=== PATIENT | female | born 1935 | race Caucasian/White ===

== ENCOUNTER 2018-06-01 15:18 | Outpatient (CLI) | payer MEDICARE, BC | END 2018-06-01 15:19 | disposition critical access hospital (66) | LOC: EMS 15:18 | PROVIDERS: ATTEND Surgery | DX: M25.551 Pain in right hip (principal) | CPT/HCPCS: A0425; A0429 ==

== ENCOUNTER 2018-06-01 15:49 | Inpatient (IN) | payer MEDICARE, BC ==
--- NOTE | 2018-06-01 16:03 | ED Physician Documentation ---
PD HPI LOWER EXT INJURY - Stated complaint Stated Complaint: GLF - Chief complaint Chief Complaint: Ext Problem - History obtained from History obtained from: Patient, EMS - History of Present Illness PD HPI LOW EXT INJURY LOCATION: Right, Hip Type of injury: Fall Where injury occurred: Home Timing - onset: Today Timing - duration: Minutes Timing - details: Abrupt onset, Still present Improved by: Rest, Immobilization Worsened by: Moving, Palpating Associated symptoms: No: Weakness, Numbness, Tingling Contributing factors: No: Anticoagulated Similar symptoms before: Has not had sx before Recently seen: Not recently seen - Additional information Additional information: 82-year-old female is visiting here from [place] and has been here a bit more than a week. She was at her daughter's home she walked down some steps and tripped on some gravel landed on her right side. She has pain in her right hip. She was not otherwise injured in the fall. She does indicate that she has some Parkinson's disease. Review of Systems Constitutional: denies: Fever Eyes: denies: Decreased vision Ears: denies: Ear pain Nose: denies: Congestion Throat: denies: Sore throat Cardiac: denies: Chest pain / pressure, Palpitations Respiratory: denies: Dyspnea, Cough GI: denies: Abdominal Pain, Nausea, Vomiting : denies: Dysuria, Frequency Skin: denies: Rash Musculoskeletal: reports: Extremity pain, Joint pain. denies: Neck pain, Back pain Neurologic: denies: Generalized weakness, Focal weakness, Numbness PD PAST MEDICAL HISTORY - Past Medical History Past Medical History: Yes Cardiovascular: Hypertension Neuro: Parkinson's Endocrine/Autoimmune: HyPOthyroidism GI: GERD - Present Medications Home Medications: Ambulatory Orders Medication Instructions Recorded Confirmed Dexlansoprazole [Dexilant] 60 mg PO DAILY 06/01/18 06/01/18 Furosemide [Lasix] 40 mg PO DAILY 06/01/18 06/01/18 Levothyroxine [Synthroid] 25 mcg PO QDAC 06/01/18 06/01/18 Lorazepam [Ativan] 1 mg PO BID 06/01/18 06/01/18 amLODIPine [Norvasc] 5 mg PO BID 06/01/18 06/01/18 - Allergies Allergies/Adverse Reactions: Allergies Allergy/AdvReac Type Severity Reaction Status Date / Time hydromorphone [From Dilaudid] Allergy Nausea Verified 06/01/18 16:30 - Living Situation Living Situation: reports: Other (visiting daughter ) - Family History Family history: reports: Non contributory PD ED PE NORMAL - Vitals Vital signs reviewed: Yes (normal ) - General General: Alert and oriented X 3, No acute distress, Well developed/nourished - HEENT HEENT: Atraumatic, PERRL, EOMI - Neck Neck: Supple, no meningeal sign, No bony TTP - Cardiac Cardiac: RRR, No murmur - Respiratory Respiratory: No respiratory distress, Clear bilaterally - Abdomen Abdomen: Soft, Non tender - Back Back: No CVA TTP, No spinal TTP - Derm Derm: Normal color, Warm and dry, No rash - Extremities Extremities: Other (There is shortening and external rotation of the right hip. There is tenderness to the right trochanter and worsening pain in this area with movement of the right leg. ) - Neuro Neuro: Alert and oriented X 3, delinquency prevention social worker 2-12 intact, No motor deficit, No sensory deficit, Normal speech Eye Opening: Spontaneous Motor: Obeys Commands Verbal: Oriented GCS Score: 15 - Psych Psych: Normal mood, Normal affect Results - Vitals Vitals: Vital Signs - 24 hr 06/01/18 15:51 Temperature 37.4 C Heart Rate 68 Respiratory 16 Rate Blood Pressure 116/56 L O2 Saturation 95 - Labs Labs: Laboratory Tests 06/01/18 06/01/18 06/01/18 16:16 16:16 16:16 WBC 5.8 RBC 3.83 L Hgb 12.9 Hct 37.7 MCV 98.5 MCH 33.6 H MCHC 34.1 RDW 13.6 Plt Count 200 MPV 7.6 L Neut # (Auto) 3.9 Lymph # (Auto) 1.2 L [place] # (Auto) 0.5 Eos # (Auto) 0.2 Baso # (Auto) 0.0 Absolute Nucleated RBC 0.00 Nucleated RBC % 0.1 Sodium 136 Potassium 4.4 Chloride 104 Carbon Dioxide 25 Anion Gap 7.0 BUN 16 Creatinine 1.2 H Estimated GFR (MDRD) 43 L Glucose 151 H Calcium 8.8 Total Bilirubin 0.4 AST 15 ALT < 10 L Alkaline Phosphatase 61 Troponin I < 0.04 Total Protein 6.9 Albumin 3.5 Globulin 3.4 Albumin/Globulin Ratio 1.0 Lipase 43 - Rads (name of study) right hip Radiology: Prelim report reviewed (Impression: Angulated right proximal femur fracture.), EMP read indepedently, See rad report PD MEDICAL DECISION MAKING - ED course Complexity details: reviewed results, re-evaluated patient, considered differential, d/w patient, d/w family, d/w content management consultant ([place]: recommends NPO after midnight and admission to the hospitalist. ) ED course: 82-year-old female with Parkinson's who is visiting her daughter has had a fall and fractured her right hip. She is given IV morphine for pain control which is not entirely effective. Hui Vides is consult in the case and graciously agrees to care for the patient in the hospital. - Sepsis Event Vital Signs: Vital Signs - 24 hr 06/01/18 15:51 Temperature 37.4 C Heart Rate 68 Respiratory 16 Rate Blood Pressure 116/56 L O2 Saturation 95 Departure - Departure Disposition: 66 [facility] DC/Xfer Clinical Impression: Closed right hip fracture Qualifiers: Encounter type: initial encounter Qualified Code(s): S72.001A - Fracture of unspecified part of neck of right femur, initial encounter for closed fracture Condition: Stable
[2018-06-01] MEDS ORDERED: ONDANSETRON 4 MG/2 ML VIAL IVP STA ×2 (16:25→17:47)
[2018-06-01] MEDS ORDERED: HYDROmorphone 1 MG/ML CARPUJECT IVP STA (16:25)
[2018-06-01 16:26] LABS: BASOPHILS % (AUTO) 0.8 %; EOSINOPHILS # (AUTO) 0.2 10^3/uL (0.0-0.7); EOSINOPHILS % (AUTO) 2.8 %; HGB - HEMOGLOBIN 12.9 g/dL (12.0-16.0); LYMPHOCYTES # (AUTO) 1.2 10^3/uL (1.5-3.5); MEAN CORPUSCULAR HEMOGLOBIN 33.6 pg (27.0-31.0); MEAN CORPUSCULAR HGB CONC 34.1 g/dL (32.0-36.0); MEAN CORPUSCULAR VOLUME 98.5 fL (81.0-99.0); MEAN PLATELET VOLUME 7.6 fL (7.9-10.8); MONOCYTES # (AUTO) 0.5 10^3/uL (0.0-1.0); MONOCYTES % (AUTO) 9.3 %; NEUTROPHILS # (AUTO) 3.9 10^3/uL (1.5-6.6); NEUTROPHILS % (AUTO) 67.1 %; PLT - PLATELET COUNT 200 10^3/uL (130-450); RED BLOOD COUNT 3.83 10^6/uL (4.20-5.40); RED CELL DISTRIBUTION WIDTH 13.6 % (12.0-15.0); WHITE BLOOD COUNT 5.8 x10^3/uL (4.8-10.8)
[2018-06-01] MEDS ORDERED: MORPHINE 10 MG/ML VIAL IVP STA ×2 (16:30→17:22)
[2018-06-01 16:39] LABS: ALBUMIN 3.5 g/dL (3.2-5.5); ALKALINE PHOSPHATASE 61 IU/L (42-121); ALT ALANINE AMINOTRANSFERASE < 10 IU/L (10-60); AST ASPARTATE AMINOTRANSFERASE 15 IU/L (10-42); BILIRUBIN,TOTAL 0.4 mg/dL (0.2-1.0); BUN - BLOOD UREA NITROGEN 16 mg/dL (6-20); CALCIUM 8.8 mg/dL (8.5-10.3); CARBON DIOXIDE - CO2 25 mmol/L (21-32); CHLORIDE 104 mmol/L (101-111); CREATININE 1.2 mg/dL (0.4-1.0); GFR - MDRD 43 (>89); GLUCOSE 151 mg/dL (70-100); LIPASE 43 U/L (22-51); SODIUM 136 mmol/L (135-145); TOTAL PROTEIN 6.9 g/dL (6.7-8.2)
--- NOTE | 2018-06-01 17:29 | XRAY Report ---
Reason: fall trochanter pain, shortening and rotation Procedure Date: 06/01/2018 Accession Number: [id number] / [id number] Procedure: XR - Hip w/Pelvis 2-3V RT CPT Code: FULL RESULT: EXAM: RIGHT HIP AND PELVIS RADIOGRAPHY EXAM DATE: 06/01/2018 05:20 PM. HISTORY: Fall trochanter pain, shortening and rotation. COMPARISONS: None. TECHNIQUE: 1 view of the pelvis and 1 view of the hip. FINDINGS: There is a fracture of the basicervical right femoral neck with moderate varus angulation and foreshortening. Osteopenia. No additional fracture identified. No dislocation. Mild bilateral hip joint space narrowing. IMPRESSION: Angulated right proximal femur fracture. RADIA
--- NOTE | 2018-06-01 17:45 | HISTORY & PHYSICAL EXAMINATION ---
Chief Complaint - Chief Complaint Chief Complaint: fall, right femur fx History of Present Illness - Admitted From Admitted From:: ED - History Obtained From Records Reviewed: yes History obtained from: chart review, patient Exam Limitations: none - History of Present Illness HPI Comment/Other: Melodie Cooney is an 82-year old female with a past medical history of hypertension, hypothyroidism, Parkinson's disease, GERD, atrial fibrillation, thymus cancer-status post thymus removal, and baseline tremors. Her daughter, Melodie is at the bedside and helped with this H & P as the patient has a hearing impairment and was unsettled with being in pain/uncontrolled nausea. The patient has been living with her daughter for the past 2 weeks and is in the process of selling her home in [place] due to increased falls at home. Since arriving at her daughter's home, she will not allow her daughter to help her manage her meds. The patient is reported as being resistant to assistance both physically and mentally. Her daughter has been helping her around their mobile home, and was thought to be managing the 2-step landing right out side the front door. The patient ambulated un-assisted out the front door, apparently fell off the 2 front steps, and landed in the gravel on her right side. There were no objects in the way and the patient states that her Parkinson's disease causes her profound bilateral leg weakness. The patient's daughter predicts that her mother laid there about 1 full minute before being discovered by her daughter. Melodie, the patient's daughter attempted to assist her mother to her feet, but the patient complained of very sharp pain in the right hip and groin and approved of her only calling "the police" so they could help. EMS arrived, and brought her to the ED. Imaging confirmed a fracture of the neck of the right femur. Labs show a reduced creatinine of 1.2, a GFR of 43, an elevated glucose of 151, a negative troponin, with no other lab abnormalities. The patient was afebrile, slightly hypotensive with a blood pressure of 116/56, and a heart rate in the 60-70's. Dr. Brunson was consulted who will plan for surgery in the AM. She will be medically managed by Hospitalist. History - Past Medical History Cardiovascular: reports: Hypertension, Atrial fibrillation, Murmur, Arrhythmia Respiratory: reports: None Neuro: reports: Parkinson's, Tremors Endocrine/Autoimmune: reports: HyPOthyroidism GI: reports: GERD : reports: Incontinence, Chronic bladder infection, Nocturia, Frequency HEENT: reports: Chronic vision loss, Chronic sinusitis, Chronic hearing loss Musculoskeletal: reports: Fatigue Derm: reports: None MRSA Hx?: No Other Past Medical History: thymus CA - Past Surgical History General: reports: Cholecystectomy, Appendectomy /BANK OFFICER: reports: Hysterectomy, Oophrectomy HEENT: reports: Tonsil/Adenoidectomy - Family & Social History Family History: Mother: , Diabetes, Type 2, Father: , Sister: , Brother: Family History Comment/Other: The patient's father had diabetes, mother had a fractured hip and from old age. The patient had 15 siblings of which she knows of no chronic illnesses. 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 She had a back injury in her 40's and went on disability since that time. She had 3 children and one adopted child. She denies the use of current tobacco use, franciscaugh used cigarettes from age [age]. She denies alcohol or illicit drug use. She wishes to be a FULL code. - Substance History Use: Uses substance without health or social issues: NONE Abuse: Recurrent use of substance despite neg consequences: NONE Dependence: Experiences withdrawal or developed tolerances: NONE - POLST Patient has POLST: No POLST Status: Full Code Meds/Allgy - Home Medications Home Medications: Ambulatory Orders Medication Instructions Recorded Confirmed Carbidopa/Levodopa 25/100 [Sinemet 2 each PO 0800,1200,1700 06/01/18 06/02/18 25 mg/100 mg] Dexlansoprazole [Dexilant] 60 mg PO QDAC 06/01/18 06/02/18 Furosemide [Lasix] 40 mg PO DAILY 06/01/18 06/01/18 Levothyroxine [Synthroid] 25 mcg PO QDAC 06/01/18 06/01/18 Lorazepam [Ativan] 1 mg PO BID PRN 06/01/18 06/02/18 amLODIPine [Norvasc] 5 mg PO BID 06/01/18 06/01/18 Metoprolol Tartrate 50 mg PO BID 06/02/18 06/02/18 Potassium Chloride 40 meq PO DAILY 06/02/18 06/02/18 Trazodone HCl 50 mg PO QPM PRN 06/02/18 06/02/18 - Allergies Allergies/Adverse Reactions: Allergies Allergy/AdvReac Type Severity Reaction Status Date / Time hydromorphone [From Dilaudid] Allergy Hallucinati Verified 06/01/18 19:22 ons Review of Systems - Constitutional Constitutional: reports: Fatigue, Weakness, Poor appetite, Weight loss - Eyes Eyes: reports: Vision loss, Corrective lenses - Ears, Nose & Throat Ears, Nose & Throat: reports: Hearing loss, Postnasal drainage - Cardiovascular Cariovascular: reports: Decr. exercise tolerance - Respiratory Respiratory: reports: SOB with exertion - Gastrointestinal Gastrointestinal: reports: Constipation, Diarrhea, Reflux/heartburn, Poor appetite - Genitourinary Genitourinary: reports: Dysuria, Frequency, Urgency, Incontinence - Musculoskeletal Musculoskeletal: reports: Back pain, Muscle weakness - Integumentary Integumentary: reports: Dryness - Neurological Neurological: reports: General weakness, Dizziness, Pre-existing deficit, Abnormal gait - Psychiatric Psychiatric: reports: Depression - Hematologic/Lymphatic Hematologic/Lymphatic: reports: Recurrent infections - All Other Systems All Other Systems: reports: Reviewed and negative Exam - Vital Signs Reviewed Vital Signs: Yes Vital Signs: Vital Signs x48h Temp Pulse Resp BP Pulse Ox 06/01/18 15:51 37.4 C 68 16 116/56 L 95 - Physical Exam General Appearance: positive: Moderate distress, Anxious Eyes Bilateral: positive: Normal inspection ENT: positive: ENT inspection nml, Pharyngeal erythema, Dry mucous membranes Neck: positive: Nml inspection, No JVD Respiratory: positive: Chest non-tender, Other (diminished.) Cardiovascular: positive: Regular rate & rhythm, No gallop, Systolic murmur Peripheral Pulses: positive: 2+ Abdomen: positive: Non-tender, Nml bowel sounds Back: positive: Nml inspection Skin: positive: No rash, Warm, Dry, Other (pale) Extremities: positive: Pedal edema, Joint swelling (right hip swelling, extremely tender.) Neurologic/Psychiatric: positive: Disoriented to time, Weakness, Sensory loss, Slurred/abnml speech, Depressed mood/affect Reflexes: Bicep (R): 2+, Bicep (L): 2+ Conclusion/Plan - Problem List (1) Preop cardiovascular exam Conclusion/Plan: The patient was examined and was orientated x4 while still in the ED, could state her medical history, her current medical state, and the past 24 hours recent events. She denies ever having a heart attack, stroke, or being diabetic. She denies kidney disease, liver disease or lung disease. She admits to tobacco use from age [age]'s. This surgery is not considered a high risk surgery involving the intrathoracic, vascular, or GI in nature. Her pre- operative evaluation concludes her to be at a 0.04% risk for a cardiac event using the; Revised Cardiac Risk Index for Pre-operative Risk. Plan: continue to monitor and anticipate surgical intervention in the AM. (2) Closed right hip fracture Conclusion/Plan: The patient was ambulating and lost her balance while under the care of her daughter. Melodie, the patient's daughter, believes that her mother was conscious throughout the whole process. Once in the ED imaging confirmed a fractured right femur. Dr. Chowdhury was contacted and will plan for surgery in the AM. The hip appears minimally swollen with no open areas of injury. The patient and her daughter do not believe that she may have hit her head during the fall and there are no other obvious areas of injury. Plan: Treat pain, and monitor. Qualifiers: Encounter type: initial encounter Qualified Code(s): S72.001A - Fracture of unspecified part of neck of right femur, initial encounter for closed fracture (3) Fall Conclusion/Plan: The primary reason for the patient re-locating to [facility] from [place] as she was falling more frequently which was likely due to the progression of her Parkinson's disease. Plan: Bed rest this evening, await surgery to repair her right hip in the AM, then PT/OT evaluation and post-op care. Qualifiers: Encounter type: subsequent encounter Qualified Code(s): W19.XXXD - Unspecified fall, subsequent encounter (4) Parkinson's disease Conclusion/Plan: The patient has had this for the past several years and is prescribed Carbidopa/ levodopa at home, and this continues here. She consequently has become progressively weak, and this has been getting worse as per her daughter for at least the past year. She has baseline tremors. Plan: Continue to monitor mental status. (5) GERD (gastroesophageal reflux disease) Conclusion/Plan: The patient has a history of this and is prescribed Dexilant at home. I have started her on IV Protonix while in the hospital. Plan: continue to monitor and treat nausea. (6) Hypothyroidism Conclusion/Plan: The patient has a history of this and is prescribed Synthroid at home, which continues here. I will check a TSH in the AM to ensure the dose is correct. Plan: Continue medication. Qualifiers: Hypothyroidism type: acquired Qualified Code(s): E03.9 - Hypothyroidism, unspecified (7) Hypertension Conclusion/Plan: The patient is prescribed lasix, norvasc and metoprolol at home and these are now on hold as she is pre-op. Blood pressures are mildly low at 116/56. Plan: Continue to hold home meds, IVFs, and monitor blood pressures. Qualifiers: Hypertension type: essential hypertension Qualified Code(s): I10 - Essential (primary) hypertension (8) Nausea & vomiting Conclusion/Plan: The patient is found to be very nauseous and this continued after arriving on the nursing floor. She has a history of GERD. She can have her usual lorazepam , zofran and we will continue to treat her pain cause by her acute right femur fracture. Plan: Continue to manage symptoms. - Lab Results Lab results reviewed: Yes Fish Bones: 06/02/18 05:10 06/02/18 05:10 - Diagnostic Imaging Results Diagnostic Imaging Results: positive: Prelim report reviewed, Final report reviewed Diagnostic Imaging Results Comments: EXAM: RIGHT HIP AND PELVIS RADIOGRAPHY EXAM DATE: 06/01/2018 05:20 PM. IMPRESSION: Angulated right proximal femur fracture. - EKG Results EKG Interpreted Independently: Yes EKG Comparison: No prior EKG Core Measures - Anticipated LOS I expect patient to be DC'd or transferred within 96 hours.: Yes - DVT/VTE - Prophylaxis VTE/DVT Device ordered at admit?: Yes VTE/DVT Prophylaxis med ordered at admit?: No Not Ordered - Medical Reason: Contraindicated - Stroke - Rehab Assessment Rehab services assessment to be ordered?: Yes - AMI - Statin at Admit Aspirin Prescribed on Admit: No Not Ordered - Medical Reason: Contraindicated
[2018-06-01] MEDS ORDERED: LORazepam 2 MG/ML VIAL IVP PRN (19:02)
[2018-06-01] MEDS ORDERED: PROCHLORPERAZINE 25 MG SUPP PR PRN (19:02)
[2018-06-01] MEDS ORDERED: PROCHLORPERAZINE 10 MG/2 ML VIAL IVP PRN (19:03)
[2018-06-01 20:07] LABS: BILIRUBIN,URINE NEGATIVE (NEGATIVE); GLUCOSE, URINE (UA) NEGATIVE (NEGATIVE); KETONES,URINE (UA) NEGATIVE (NEGATIVE); LEUKOCYTE ESTERASE, URINE NEGATIVE (NEGATIVE); NITRITE,URINE NEGATIVE (NEGATIVE); OCCULT BLOOD,URINE NEGATIVE (NEGATIVE); PH,URINE 7.5 PH (5.0-7.5); PROTEIN,URINE NEGATIVE (NEGATIVE); UROBILINOGEN,URINE 0.2 (NORMAL) E.U./dL (NORMAL)
[2018-06-01 20:11] LABS: CLARITY,URINE N (CLEAR)
[2018-06-01] MEDS: SODIUM CHLORIDE 0.9% 1,000 ML IV SCH (20:15)
[2018-06-01] MEDS: ACETAMINOPHEN 325 MG TABLET PO SCH (20:15)
[2018-06-01] MEDS: PANTOPRAZOLE 40 MG TABLET PO SCH (20:16)
[2018-06-01] MEDS: oxyCODONE 5 MG TABLET PO PRN (20:16)
[2018-06-01] MEDS ORDERED: CARBIDOPA/LEVODOPA 25 MG/100 MG TABLET PO SCH (21:00)
[2018-06-01] MEDS: SODIUM CHLORIDE FLUSH 0.9% 10 ML SYRINGE IVP PRN (21:21)
[2018-06-02] MEDS: MORPHINE 2 MG/ML CARPUJECT IVP PRN ×7 (00:23→20:19)
[2018-06-02] MEDS: ACETAMINOPHEN 325 MG TABLET PO SCH ×3 (00:34→11:14)
[2018-06-02] MEDS: SODIUM CHLORIDE FLUSH 0.9% 10 ML SYRINGE IVP SCH ×3 (05:20→16:20)
[2018-06-02 05:40] LABS: BASOPHILS % (AUTO) 0.5 %; EOSINOPHILS # (AUTO) 0.2 10^3/uL (0.0-0.7); EOSINOPHILS % (AUTO) 2.1 %; HGB - HEMOGLOBIN 12.1 g/dL (12.0-16.0); LYMPHOCYTES # (AUTO) 1.4 10^3/uL (1.5-3.5); MEAN CORPUSCULAR HEMOGLOBIN 33.8 pg (27.0-31.0); MEAN CORPUSCULAR HGB CONC 34.2 g/dL (32.0-36.0); MEAN CORPUSCULAR VOLUME 98.9 fL (81.0-99.0); MEAN PLATELET VOLUME 7.8 fL (7.9-10.8); MONOCYTES # (AUTO) 0.8 10^3/uL (0.0-1.0); MONOCYTES % (AUTO) 9.9 %; NEUTROPHILS # (AUTO) 6.1 10^3/uL (1.5-6.6); NEUTROPHILS % (AUTO) 71.5 %; PLT - PLATELET COUNT 174 10^3/uL (130-450); RED BLOOD COUNT 3.57 10^6/uL (4.20-5.40); RED CELL DISTRIBUTION WIDTH 13.7 % (12.0-15.0); WHITE BLOOD COUNT 8.6 x10^3/uL (4.8-10.8)
[2018-06-02 06:21] LABS: HB2 TOTAL 12.3 g/dL; HEMOGLOBIN A1C 0.46 g/dL; HEMOGLOBIN A1C % 5.6 % (4.6-6.2)
[2018-06-02 06:22] LABS: ALBUMIN 3.3 g/dL (3.2-5.5); BILIRUBIN,TOTAL 1.5 mg/dL (0.2-1.0); CALCIUM 8.6 mg/dL (8.5-10.3); CREATININE 0.9 mg/dL (0.4-1.0); MAGNESIUM 2.1 mg/dL (1.7-2.8); PHOSPHORUS 3.5 mg/dL (2.5-4.6); TOTAL PROTEIN 6.7 g/dL (6.7-8.2)
[2018-06-02] MEDS: PANTOPRAZOLE 40 MG TABLET PO SCH ×2 (06:29→16:19)
[2018-06-02] MEDS ORDERED: LEVOTHYROXINE 25 MCG TABLET PO SCH (07:00)
[2018-06-02] MEDS: POLYETHYLENE GLYCOL 3350 17 GM PACKET PO SCH (09:31)
[2018-06-02] MEDS: SODIUM CHLORIDE 0.9% 1,000 ML IV SCH ×2 (09:31→20:20)
[2018-06-02] MEDS: SODIUM CHLORIDE FLUSH 0.9% 10 ML SYRINGE IVP PRN ×5 (11:02→20:19)
[2018-06-02] MEDS: CARBIDOPA/LEVODOPA 25 MG/100 MG TABLET PO SCH ×4 (11:02→21:04)
[2018-06-02] MEDS: LEVOTHYROXINE 100 MCG VIAL IVP SCH (11:02)
[2018-06-02 11:24] LABS: PT - PROTHROMBIN TIME 11.6 secs (9.9-12.6)
[2018-06-02 11:27] LABS: GAMMA GLUTAMYL TRANSPEPTIDASE 120 IU/L (8-38); LIPASE 38 U/L (22-51)
--- NOTE | 2018-06-02 12:37 | PROVIDER PROGRESS NOTE ---
Subjective - Prog Note Date Prog Note Date: 06/02/18 Prog Note Time: 12:36 - Subjective Pt reports feeling: Worse Subjective: Melodie complains that she feels like her leg is twisted and this improved after nursing repositioned. She denies chest pain, increased shortness of breath, vomiting, or dizziness. She admits to ongoing nausea and LUQ pain. Current Medications - Current Medications Current Medications: Active Medications Carbidopa/Levodopa (Sinemet 25 Mg/100 Mg) 1 tab PO QID [facility] Last Admin: 06/03/18 05:52 Dose: 1 tab Docusate Sodium (Colace 250mg Capsule) 250 - 500 mg PO ONCE [facility] Stop: 06/03/18 10:00 Sodium Chloride (Normal Saline 0.9%) 1,000 mls @ 83.333 mls/hr IV .Q12H [facility] Last Admin: 06/02/18 20:20 Dose: 83.3 mls/hr Acetaminophen (Ofirmev) 100 mls @ 400 mls/hr IV Q6HR PRN PRN Reason: PAIN Last Infusion: 06/02/18 21:32 Dose: Infused Levothyroxine Sodium (Synthroid Inj) 50 mcg IVP DAILY [facility] Last Admin: 06/02/18 11:02 Dose: 50 mcg Morphine Sulfate (Morphine (Carpuject)) 2 mg IVP Q2HR PRN PRN Reason: PAIN Last Admin: 06/03/18 05:52 Dose: 2 mg Oxycodone HCl (Roxicodone) 5 mg PO Q4HR PRN PRN Reason: PAIN Last Admin: 06/01/18 20:16 Dose: 5 mg Pantoprazole Sodium (Protonix) 40 mg PO BIDAC [facility] Last Admin: 06/03/18 06:22 Dose: Not Given Polyethylene Glycol (Miralax) 17 gm PO DAILY [facility] Last Admin: 06/02/18 09:31 Dose: Not Given Prochlorperazine Edisylate (Compazine Inj) 10 mg IVP Q4HR PRN PRN Reason: Nausea / Vomiting Last Admin: 06/01/18 20:16 Dose: 10 mg Prochlorperazine Maleate (Compazine Supp) 25 mg [place] BID PRN PRN Reason: Nausea / Vomiting Quetiapine Fumarate (Seroquel) 25 mg PO Q6H PRN PRN Reason: Agitation Senna (Senokot) 8.6 - 17.2 mg PO ONCE [facility] Stop: 06/03/18 10:00 Sodium Chloride (Normal Saline Flush 0.9%) 10 ml IVP PRN PRN PRN Reason: NEEDED PER PROVIDER ORDERS Last Admin: 06/03/18 05:53 Dose: 10 ml Sodium Chloride (Normal Saline Flush 0.9%) 10 ml IVP 0100,0900,1700 [facility] Last Admin: 06/03/18 01:11 Dose: Not Given Carbidopa/Levodopa 25/100 [Sinemet 25 mg/100 mg] 2 each PO 0800,1200,1700 Dexlansoprazole [Dexilant] 60 mg PO QDAC 06/01/18 Furosemide [Lasix] 40 mg PO DAILY 06/01/18 Levothyroxine [Synthroid] 25 mcg PO QDAC 06/01/18 Lorazepam [Ativan] 1 mg PO BID PRN 06/01/18 amLODIPine [Norvasc] 5 mg PO BID 06/01/18 Metoprolol Tartrate 50 mg PO BID 06/02/18 Potassium Chloride 40 meq PO DAILY 06/02/18 Trazodone HCl 50 mg PO QPM PRN 06/02/18 Objective - Vital Signs/Intake & Output Reviewed Vital Signs: Yes Vital Signs: Vital Signs x48h Temp Pulse Resp BP Pulse Ox 06/02/18 11:22 37.4 C 06/02/18 09:24 37.5 C 70 16 116/50 L 93 Intake & Output: Intake & Output 05/30/18 05/31/18 06/01/18 06/02/18 23:59 23:59 23:59 23:59 Intake Total 1000 Output Total 700 750 Balance -700 250 - Objective General Appearance: positive: Alert, Mild distress Eyes Bilateral: positive: Normal inspection Eyes: OU Conjunctivae pale ENT: positive: ENT inspection nml, Pharynx nml, Dry mucous membranes Neck: positive: Nml inspection, Thyroid nml, No JVD Respiratory: positive: Chest non-tender, No respiratory distress Cardiovascular: positive: Regular rate & rhythm, No gallop, Systolic murmur Peripheral Pulses: 1+ Radial (R), 1+ Radial (L) Abdomen: positive: Nml bowel sounds, Tenderness, Guarding Back: positive: Nml inspection Skin: positive: No rash, Warm, Dry Extremities: positive: Pedal edema, Joint swelling (right hip swelling) Neurologic/Psychiatric: positive: Disoriented to time, Weakness, Sensory loss, Depressed mood/affect Reflexes: Bicep (R): 3+, Bicep (L): 3+ - Lab Results Fish Bones: 06/03/18 05:16 06/03/18 05:16 Other Labs: Lab Results x24hrs 06/02/18 06/02/18 06/02/18 Range/Units 11:10 11:10 11:10 WBC (4.8-10.8) x10^3/uL RBC (4.20-5.40) 10^6/uL Hgb (12.0-16.0) g/dL Hct (37.0-47.0) % MCV (81.0-99.0) fL MCH (27.0-31.0) pg MCHC (32.0-36.0) g/dL RDW (12.0-15.0) % Plt Count (130-450) 10^3/uL MPV (7.9-10.8) fL Neut # (Auto) (1.5-6.6) 10^3/uL Lymph # (Auto) (1.5-3.5) 10^3/uL [place] # (Auto) (0.0-1.0) 10^3/uL Eos # (Auto) (0.0-0.7) 10^3/uL Baso # (Auto) (0.0-0.1) 10^3/uL Absolute Nucleated RBC x10^3/uL Nucleated RBC % /100WBC PT (9.9-12.6) secs INR (0.8-1.2) APTT (24.9-33.3) secs Sodium (135-145) mmol/L Potassium (3.5-5.0) mmol/L Chloride (101-111) mmol/L Carbon Dioxide (21-32) mmol/L Anion Gap (6-13) BUN (6-20) mg/dL Creatinine (0.4-1.0) mg/dL Estimated GFR (MDRD) (>89) Glucose (70-100) mg/dL Glycated Hemoglobin (4.6-6.2) % Estim Average Glucose (70-100) Calcium (8.5-10.3) mg/dL Phosphorus (2.5-4.6) mg/dL Magnesium (1.7-2.8) mg/dL Iron (28-170) ug/dL TIBC (250-450) ug/dL % Saturation (20-50) % Transferrin (192-382) mg/dL Total Bilirubin (0.2-1.0) mg/dL GGT (8-38) IU/L AST (10-42) IU/L ALT (10-60) IU/L Alkaline Phosphatase (42-121) IU/L Ammonia 23.9 (7-35) umol/L Lactate Dehydrogenase 713 H (91-225) IU/L Troponin I < 0.04 (<0.49) ng/mL B-Natriuretic Peptide (5-100) pg/mL Total Protein (6.7-8.2) g/dL Albumin (3.2-5.5) g/dL Globulin (2.1-4.2) g/dL Albumin/Globulin Ratio (1.0-2.2) Lipase (22-51) U/L TSH (0.34-5.60) uIU/mL Urine Color Urine Clarity (CLEAR) Urine pH (5.0-7.5) PH Ur Specific [place] (1.002-1.030) Urine Protein (NEGATIVE) mg/dL Urine Glucose (UA) (NEGATIVE) mg/dL Urine Ketones (NEGATIVE) mg/dL Urine Occult Blood (NEGATIVE) Urine Nitrite (NEGATIVE) Urine Bilirubin (NEGATIVE) Urine Urobilinogen (NORMAL) E.U./dL Ur Leukocyte Esterase (NEGATIVE) Ur Microscopic Review Urine Culture Comments 06/02/18 06/02/18 06/02/18 Range/Units 11:10 11:10 05:10 WBC (4.8-10.8) x10^3/uL RBC (4.20-5.40) 10^6/uL Hgb (12.0-16.0) g/dL Hct (37.0-47.0) % MCV (81.0-99.0) fL MCH (27.0-31.0) pg MCHC (32.0-36.0) g/dL RDW (12.0-15.0) % Plt Count (130-450) 10^3/uL MPV (7.9-10.8) fL Neut # (Auto) (1.5-6.6) 10^3/uL Lymph # (Auto) (1.5-3.5) 10^3/uL [place] # (Auto) (0.0-1.0) 10^3/uL Eos # (Auto) (0.0-0.7) 10^3/uL Baso # (Auto) (0.0-0.1) 10^3/uL Absolute Nucleated RBC x10^3/uL Nucleated RBC % /100WBC PT 11.6 (9.9-12.6) secs INR 1.0 (0.8-1.2) APTT 25.7 (24.9-33.3) secs Sodium (135-145) mmol/L Potassium (3.5-5.0) mmol/L Chloride (101-111) mmol/L Carbon Dioxide (21-32) mmol/L Anion Gap (6-13) BUN (6-20) mg/dL Creatinine (0.4-1.0) mg/dL Estimated GFR (MDRD) (>89) Glucose (70-100) mg/dL Glycated Hemoglobin (4.6-6.2) % Estim Average Glucose (70-100) Calcium (8.5-10.3) mg/dL Phosphorus (2.5-4.6) mg/dL Magnesium (1.7-2.8) mg/dL Iron (28-170) ug/dL TIBC (250-450) ug/dL % Saturation (20-50) % Transferrin (192-382) mg/dL Total Bilirubin (0.2-1.0) mg/dL GGT 120 H (8-38) IU/L AST (10-42) IU/L ALT (10-60) IU/L Alkaline Phosphatase (42-121) IU/L Ammonia (7-35) umol/L Lactate Dehydrogenase (91-225) IU/L Troponin I (<0.49) ng/mL B-Natriuretic Peptide (5-100) pg/mL Total Protein (6.7-8.2) g/dL Albumin (3.2-5.5) g/dL Globulin (2.1-4.2) g/dL Albumin/Globulin Ratio (1.0-2.2) Lipase 38 (22-51) U/L TSH 15.36 H (0.34-5.60) uIU/mL Urine Color Urine Clarity (CLEAR) Urine pH (5.0-7.5) PH Ur Specific [place] (1.002-1.030) Urine Protein (NEGATIVE) mg/dL Urine Glucose (UA) (NEGATIVE) mg/dL Urine Ketones (NEGATIVE) mg/dL Urine Occult Blood (NEGATIVE) Urine Nitrite (NEGATIVE) Urine Bilirubin (NEGATIVE) Urine Urobilinogen (NORMAL) E.U./dL Ur Leukocyte Esterase (NEGATIVE) Ur Microscopic Review Urine Culture Comments 06/02/18 06/02/18 06/02/18 Range/Units 05:10 05:10 05:10 WBC (4.8-10.8) x10^3/uL RBC (4.20-5.40) 10^6/uL Hgb (12.0-16.0) g/dL Hct (37.0-47.0) % MCV (81.0-99.0) fL MCH (27.0-31.0) pg MCHC (32.0-36.0) g/dL RDW (12.0-15.0) % Plt Count (130-450) 10^3/uL MPV (7.9-10.8) fL Neut # (Auto) (1.5-6.6) 10^3/uL Lymph # (Auto) (1.5-3.5) 10^3/uL [place] # (Auto) (0.0-1.0) 10^3/uL Eos # (Auto) (0.0-0.7) 10^3/uL Baso # (Auto) (0.0-0.1) 10^3/uL Absolute Nucleated RBC x10^3/uL Nucleated RBC % /100WBC PT (9.9-12.6) secs INR (0.8-1.2) APTT (24.9-33.3) secs Sodium 137 (135-145) mmol/L Potassium 4.9 (3.5-5.0) mmol/L Chloride 105 (101-111) mmol/L Carbon Dioxide 23 (21-32) mmol/L Anion Gap 9.0 (6-13) BUN 15 (6-20) mg/dL Creatinine 0.9 (0.4-1.0) mg/dL Estimated GFR (MDRD) 60 L (>89) Glucose 129 H (70-100) mg/dL Glycated Hemoglobin 5.6 (4.6-6.2) % Estim Average Glucose 114 H (70-100) Calcium 8.6 (8.5-10.3) mg/dL Phosphorus 3.5 (2.5-4.6) mg/dL Magnesium 2.1 (1.7-2.8) mg/dL Iron 61 (28-170) ug/dL TIBC 351 (250-450) ug/dL % Saturation 17 L (20-50) % Transferrin 251 (192-382) mg/dL Total Bilirubin 1.5 H (0.2-1.0) mg/dL GGT (8-38) IU/L AST 845 H (10-42) IU/L ALT 78 H (10-60) IU/L Alkaline Phosphatase 136 H (42-121) IU/L Ammonia (7-35) umol/L Lactate Dehydrogenase (91-225) IU/L Troponin I (<0.49) ng/mL B-Natriuretic Peptide 338 H (5-100) pg/mL Total Protein 6.7 (6.7-8.2) g/dL Albumin 3.3 (3.2-5.5) g/dL Globulin 3.4 (2.1-4.2) g/dL Albumin/Globulin Ratio 1.0 (1.0-2.2) Lipase (22-51) U/L TSH (0.34-5.60) uIU/mL Urine Color Urine Clarity (CLEAR) Urine pH (5.0-7.5) PH Ur Specific [place] (1.002-1.030) Urine Protein (NEGATIVE) mg/dL Urine Glucose (UA) (NEGATIVE) mg/dL Urine Ketones (NEGATIVE) mg/dL Urine Occult Blood (NEGATIVE) Urine Nitrite (NEGATIVE) Urine Bilirubin (NEGATIVE) Urine Urobilinogen (NORMAL) E.U./dL Ur Leukocyte Esterase (NEGATIVE) Ur Microscopic Review Urine Culture Comments 06/02/18 06/01/18 Range/Units 05:10 20:01 WBC 8.6 (4.8-10.8) x10^3/uL RBC 3.57 L (4.20-5.40) 10^6/uL Hgb 12.1 (12.0-16.0) g/dL Hct 35.3 L (37.0-47.0) % MCV 98.9 (81.0-99.0) fL MCH 33.8 H (27.0-31.0) pg MCHC 34.2 (32.0-36.0) g/dL RDW 13.7 (12.0-15.0) % Plt Count 174 (130-450) 10^3/uL MPV 7.8 L (7.9-10.8) fL Neut # (Auto) 6.1 (1.5-6.6) 10^3/uL Lymph # (Auto) 1.4 L (1.5-3.5) 10^3/uL [place] # (Auto) 0.8 (0.0-1.0) 10^3/uL Eos # (Auto) 0.2 (0.0-0.7) 10^3/uL Baso # (Auto) 0.0 (0.0-0.1) 10^3/uL Absolute Nucleated RBC 0.00 x10^3/uL Nucleated RBC % 0.0 /100WBC PT (9.9-12.6) secs INR (0.8-1.2) APTT (24.9-33.3) secs Sodium (135-145) mmol/L Potassium (3.5-5.0) mmol/L Chloride (101-111) mmol/L Carbon Dioxide (21-32) mmol/L Anion Gap (6-13) BUN (6-20) mg/dL Creatinine (0.4-1.0) mg/dL Estimated GFR (MDRD) (>89) Glucose (70-100) mg/dL Glycated Hemoglobin (4.6-6.2) % Estim Average Glucose (70-100) Calcium (8.5-10.3) mg/dL Phosphorus (2.5-4.6) mg/dL Magnesium (1.7-2.8) mg/dL Iron (28-170) ug/dL TIBC (250-450) ug/dL % Saturation (20-50) % Transferrin (192-382) mg/dL Total Bilirubin (0.2-1.0) mg/dL GGT (8-38) IU/L AST (10-42) IU/L ALT (10-60) IU/L Alkaline Phosphatase (42-121) IU/L Ammonia (7-35) umol/L Lactate Dehydrogenase (91-225) IU/L Troponin I (<0.49) ng/mL B-Natriuretic Peptide (5-100) pg/mL Total Protein (6.7-8.2) g/dL Albumin (3.2-5.5) g/dL Globulin (2.1-4.2) g/dL Albumin/Globulin Ratio (1.0-2.2) Lipase (22-51) U/L TSH (0.34-5.60) uIU/mL Urine Color YELLOW Urine Clarity N (CLEAR) Urine pH 7.5 (5.0-7.5) PH Ur Specific [place] 1.010 (1.002-1.030) Urine Protein NEGATIVE (NEGATIVE) mg/dL Urine Glucose (UA) NEGATIVE (NEGATIVE) mg/dL Urine Ketones NEGATIVE (NEGATIVE) mg/dL Urine Occult Blood NEGATIVE (NEGATIVE) Urine Nitrite NEGATIVE (NEGATIVE) Urine Bilirubin NEGATIVE (NEGATIVE) Urine Urobilinogen 0.2 (NORMAL) (NORMAL) E.U./dL Ur Leukocyte Esterase NEGATIVE (NEGATIVE) Ur Microscopic Review NOT INDICATED Urine Culture Comments NOT INDICATED - Diagnostic Imaging Diagnostic Imaging Results: positive: Final report reviewed Diagnostic Imaging Comments: EXAM: CT ABDOMEN AND PELVIS EXAM DATE: 06/02/2018 03:28 PM. IMPRESSION: 1. Right femoral neck fracture. 2. Bilateral small pleural effusions with bilateral lower lobe dependent atelectasis, alveolar edema, or less likely pneumonia. 3. Post cholecystectomy with a dilated common bile duct. This is of uncertain chronicity and could be chronic dilation from previous obstruction, ampullary dysfunction or acute obstruction. 4. Features of constipation. ABX Reporting Has patient been on IV antibiotics over the past 48 hours?: No Assessment/Plan - Problem List (1) Abnormal LFTs (liver function tests) Impression: The patient had a profound increase in her LFTs including; AST/ALT from 15/<10 upon admission, now at 845/78. To ensure this was not a lab error, follow up labs were collected. She was found to have normal INR/PTT at 1.0/11.6, an elevated LDH of 713, elevated GGT of 120, an elevated alk phos of 136, normal ammonia of 23.9, normal lipase at 38, normal hgA1C of 5.6%, and an elevated fasting blood glucose of 129. Her planned right hip repair is now on hold and an abdominal/pelvis CT with oral and IV contrast was ordered and final results show a dilated common bile duct which could be from a previous obstruction, ampullary dysfunction or acute obstruction. The patient complains of ongoing RUQ pain. 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 Other contributing factors is that the patient's TSH was grossly elevated at >15 , she is prescribed a dopamine agonist. As per her daughter, she does not believe that she has been taking her medications reliably and/or as prescribed. Her BNP was elevated so these abnormalities could be from hepatic congestion ( heart failure). Plan: Continue to monitor and treat pain. Follow labs. (2) Closed right hip fracture Impression: The patient was ambulating and lost her balance while under the care of her daughter. Melodie, the patient's daughter, believes that her mother was conscious throughout the whole process. Once in the ED imaging confirmed a fractured right femur. Dr. Chowdhury was contacted and will plan for surgery in the AM. The hip appears minimally swollen with no open areas of injury. The patient and her daughter do not believe that she may have hit her head during the fall and there are no other obvious areas of injury. Plan: Treat pain, and monitor. Qualifiers: Encounter type: initial encounter Qualified Code(s): S72.001A - Fracture of unspecified part of neck of right femur, initial encounter for closed fracture (3) Fall Impression: The primary reason for the patient re-locating to [facility] from [place] as she was falling more frequently which was likely due to the progression of her Parkinson's disease. Plan: Bed rest this evening, await surgery to repair her right hip in the AM, then PT/OT evaluation and post-op care. Qualifiers: Encounter type: subsequent encounter Qualified Code(s): W19.XXXD - Unspecified fall, subsequent encounter (4) Parkinson's disease Impression: The patient has had this for the past several years and is prescribed Carbidopa/ levodopa at home, and this continues here. She consequently has become progressively weak, and this has been getting worse as per her daughter for at least the past year. She has baseline tremors. It is unclear whether the patient has been taking this as prescribed at home. Plan: Continue to monitor mental status. (5) GERD (gastroesophageal reflux disease) Impression: The patient has a history of this and is prescribed Dexilant at home. I have started her on IV Protonix while in the hospital. Plan: continue to monitor and treat nausea. (6) Hypothyroidism Impression: The patient has a history of this and is prescribed Synthroid at home, which continues here. A TSH was checked and is elevated at greater than 15, so I have prescribed this in an IV for at 50mcg daily until after her surgery. Plan: Continue medication. Qualifiers: Hypothyroidism type: acquired Qualified Code(s): E03.9 - Hypothyroidism, unspecified (7) Hypertension Impression: The patient is prescribed lasix, norvasc and metoprolol at home and these are now on hold as she is pre-op. Blood pressures are mildly low at 116/56. Plan: Continue to hold home meds, IVFs, and monitor blood pressures. Qualifiers: Hypertension type: essential hypertension Qualified Code(s): I10 - Essential (primary) hypertension (8) Nausea & vomiting Impression: The patient is found to be very nauseous and this continued after arriving on the nursing floor. She has a history of GERD. She can have her usual lorazepam , zofran and we will continue to treat her pain cause by her acute right femur fracture. Plan: Continue to manage symptoms. (9) Altered mental status Impression: The patient required bilateral wrist restraints on her first night of stay due to agitation and the likelihood of removing IV/morocho. She continues to wear these and her daughter reports that her mother is very confused and is not certain that she recognizes her. Plan: Continue to monitor and anticipate discontinuing restraints.
[2018-06-02] MEDS ORDERED: IOPAMIDOL-300 100 ML VIAL ONE (14:26)
[2018-06-02] MEDS ORDERED: IOPAMIDOL-300 100 ML VIAL IVP ONE (15:30)
--- NOTE | 2018-06-02 16:48 | CT Report ---
Reason: elevated LFTs, RUQ pain, AMS Procedure Date: 06/02/2018 Accession Number: [id number] / [id number] Procedure: CT - Abdomen/Pelvis W/ CPT Code: FULL RESULT: EXAM: CT ABDOMEN AND PELVIS EXAM DATE: 06/02/2018 03:28 PM. CLINICAL HISTORY: Elevated LFTs, RUQ pain, AMS. COMPARISONS: HIP W/PELVIS 2-3V RT 06/01/2018. TECHNIQUE: Routine helical CT imaging was performed through the abdomen and pelvis. IV contrast: 100 cc [id number]. Enteric contrast: No. Reconstructions: Coronal and sagittal. In accordance with CT protocol optimization, one or more of the following dose reduction techniques were utilized for this exam: automated exposure control, adjustment of mA and/or KV based on patient size, or use of iterative reconstructive technique. FINDINGS: Lung Bases: There are bilateral small pleural effusions. There is bilateral lower lobe consolidation. Liver: There are multiple scattered punctate calcifications within the liver. There is mild to moderate intrahepatic biliary dilatation. Gallbladder/Bile Ducts: The gallbladder is absent. The common bile duct is dilated measuring 18 mm proximally tapering distally to 8 mm. No calcified stones visualized. Spleen: Normal. Pancreas: Normal. Adrenal Glands: Normal. Kidneys: There is a lobulated contour of the right kidney. Kidneys enhance normally with no mass or hydronephrosis. Peritoneal Cavity/Bowel: There is increased stool present within the colon. There is no free air or pneumatosis. No evidence of acute appendicitis. Pelvic Organs: The urinary bladder is empty and decompressed with a Dennis catheter. Uterus not visualized. Vasculature: There is moderate atherosclerotic vascular calcification. Bones: There is a fracture of the right femoral neck. Other: None. IMPRESSION: 1. Right femoral neck fracture. 2. Bilateral small pleural effusions with bilateral lower lobe dependent atelectasis, alveolar edema, or less likely pneumonia. 3. Post cholecystectomy with a dilated common bile duct. This is of uncertain chronicity and could be chronic dilation from previous obstruction, ampullary dysfunction or acute obstruction. 4. Features of constipation. RADIA
[2018-06-02] MEDS ORDERED: ACETAMINOPHEN 1,000 MG/100 ML 100 ML IV PRN (20:00)
[2018-06-03] MEDS: SODIUM CHLORIDE FLUSH 0.9% 10 ML SYRINGE IVP SCH ×3 (01:11→16:53)
[2018-06-03] MEDS: SODIUM CHLORIDE FLUSH 0.9% 10 ML SYRINGE IVP PRN ×5 (03:56→13:34)
[2018-06-03] MEDS: MORPHINE 2 MG/ML CARPUJECT IVP PRN ×6 (03:56→21:03)
[2018-06-03 05:31] LABS: BASOPHILS # (AUTO) 0.1 10^3/uL (0.0-0.1); BASOPHILS % (AUTO) 0.8 %; EOSINOPHILS # (AUTO) 0.5 10^3/uL (0.0-0.7); EOSINOPHILS % (AUTO) 6.4 %; LYMPHOCYTES # (AUTO) 0.8 10^3/uL (1.5-3.5); LYMPHOCYTES % (AUTO) 11.1 %; MEAN CORPUSCULAR HEMOGLOBIN 34.1 pg (27.0-31.0); MEAN CORPUSCULAR HGB CONC 34.3 g/dL (32.0-36.0); MEAN CORPUSCULAR VOLUME 99.4 fL (81.0-99.0); MEAN PLATELET VOLUME 7.8 fL (7.9-10.8); MONOCYTES # (AUTO) 0.8 10^3/uL (0.0-1.0); MONOCYTES % (AUTO) 10.3 %; NEUTROPHILS # (AUTO) 5.4 10^3/uL (1.5-6.6); NEUTROPHILS % (AUTO) 71.4 %; PLT - PLATELET COUNT 159 10^3/uL (130-450); RED BLOOD COUNT 3.52 10^6/uL (4.20-5.40); RED CELL DISTRIBUTION WIDTH 13.7 % (12.0-15.0); WHITE BLOOD COUNT 7.5 x10^3/uL (4.8-10.8)
[2018-06-03 05:42] LABS: ALBUMIN 3.1 g/dL (3.2-5.5); ALBUMIN/GLOBULIN RATIO 1.1 (1.0-2.2); BILIRUBIN,TOTAL 1.8 mg/dL (0.2-1.0); CALCIUM 8.5 mg/dL (8.5-10.3); CREATININE 0.6 mg/dL (0.4-1.0)
[2018-06-03] MEDS: CARBIDOPA/LEVODOPA 25 MG/100 MG TABLET PO SCH ×5 (05:52→21:04)
[2018-06-03] MEDS: PANTOPRAZOLE 40 MG TABLET PO SCH ×2 (06:22→16:53)
[2018-06-03] MEDS ORDERED: SENNA 8.6 MG TABLET PO SCH ×2 (08:00→17:00)
[2018-06-03] MEDS ORDERED: DOCUSATE SODIUM 250 MG CAPSULE PO SCH ×2 (09:00→17:00)
[2018-06-03] MEDS: LEVOTHYROXINE 100 MCG VIAL IVP SCH (09:43)
[2018-06-03] MEDS: POLYETHYLENE GLYCOL 3350 17 GM PACKET PO SCH (09:44)
--- NOTE | 2018-06-03 18:22 | PROVIDER PROGRESS NOTE ---
Subjective - Prog Note Date Prog Note Date: 06/03/18 Prog Note Time: 18:22 - Subjective Pt reports feeling: No change Subjective: Melodie complains of right hip pain with right upper leg muscle cramping. She denies new symptoms such as shortness of breath, nausea, vomiting, or a new cough. Her daughter, Melodie is at the bedside for this exam. Current Medications - Current Medications Current Medications: Active Medications Carbidopa/Levodopa (Sinemet 25 Mg/100 Mg) 2 tab PO QID [facility] Last Admin: 06/03/18 16:52 Dose: 2 tab Cyclobenzaprine HCl (Flexeril) 10 mg PO TID PRN PRN Reason: Spasms Last Admin: 06/03/18 18:36 Dose: 10 mg Sodium Chloride (Normal Saline 0.9%) 1,000 mls @ 83.333 mls/hr IV .Q12H [facility] Last Admin: 06/03/18 18:37 Dose: 83.3 mls/hr Acetaminophen (Ofirmev) 100 mls @ 400 mls/hr IV Q6HR PRN PRN Reason: PAIN Last Infusion: 06/02/18 21:32 Dose: Infused Levothyroxine Sodium (Synthroid Inj) 50 mcg IVP DAILY [facility] Last Admin: 06/03/18 09:43 Dose: 50 mcg Morphine Sulfate (Morphine (Carpuject)) 2 mg IVP Q2HR PRN PRN Reason: PAIN Last Admin: 06/03/18 17:10 Dose: 2 mg Oxycodone HCl (Roxicodone) 5 mg PO Q4HR PRN PRN Reason: PAIN Last Admin: 06/01/18 20:16 Dose: 5 mg Pantoprazole Sodium (Protonix) 40 mg PO BIDAC [facility] Last Admin: 06/03/18 16:53 Dose: 40 mg Polyethylene Glycol (Miralax) 17 gm PO DAILY [facility] Last Admin: 06/03/18 09:44 Dose: 17 gm Prochlorperazine Edisylate (Compazine Inj) 10 mg IVP Q4HR PRN PRN Reason: Nausea / Vomiting Last Admin: 06/01/18 20:16 Dose: 10 mg Prochlorperazine Maleate (Compazine Supp) 25 mg OK BID PRN PRN Reason: Nausea / Vomiting Quetiapine Fumarate (Seroquel) 25 mg PO Q6H PRN PRN Reason: Agitation Sodium Chloride (Normal Saline Flush 0.9%) 10 ml IVP PRN PRN PRN Reason: NEEDED PER PROVIDER ORDERS Last Admin: 06/03/18 13:34 Dose: 10 ml Sodium Chloride (Normal Saline Flush 0.9%) 10 ml IVP 0100,0900,1700 ANSHUL Last Admin: 06/03/18 16:53 Dose: 10 ml Carbidopa/Levodopa 25/100 [Sinemet 25 mg/100 mg] 2 each PO 0800,1200,1700 Dexlansoprazole [Dexilant] 60 mg PO QDAC 06/01/18 Furosemide [Lasix] 40 mg PO DAILY 06/01/18 Levothyroxine [Synthroid] 25 mcg PO QDAC 06/01/18 Lorazepam [Ativan] 1 mg PO BID PRN 06/01/18 amLODIPine [Norvasc] 5 mg PO BID 06/01/18 Metoprolol Tartrate 50 mg PO BID 06/02/18 Potassium Chloride 40 meq PO DAILY 06/02/18 Trazodone HCl 50 mg PO QPM PRN 06/02/18 Objective - Vital Signs/Intake & Output Reviewed Vital Signs: Yes Vital Signs: Vital Signs x48h Temp Pulse Resp BP Pulse Ox 06/03/18 16:00 37.4 C 77 18 120/50 L 97 Intake & Output: Intake & Output 05/31/18 06/01/18 06/02/18 06/03/18 23:59 23:59 23:59 23:59 Intake Total 3010 240 Output Total 700 1580 1650 Balance -700 893 -3210 - Objective General Appearance: positive: No acute distress, Alert, Anxious Eyes Bilateral: positive: Normal inspection, PERRL Eyes: OU Abnormal pupil ENT: positive: ENT inspection nml, Pharyngeal erythema, Dry mucous membranes Neck: positive: Nml inspection, Thyroid nml, No JVD Respiratory: positive: Chest non-tender, No respiratory distress, Other ( bilateral low lobe crackles) Cardiovascular: positive: Regular rate & rhythm, No gallop, JVD present, Decreased pulse(s) Peripheral Pulses: 1+ Radial (R), 1+ Radial (L) Abdomen: positive: Non-tender, Nml bowel sounds, Other (rounded, soft) Back: positive: Nml inspection Skin: positive: No rash, Warm, Dry, Other (pale) Extremities: positive: Pedal edema, Joint swelling (right hip) Neurologic/Psychiatric: positive: CN's nml (2-12), Motor nml, Disoriented to time, Weakness, Sensory loss, Depressed mood/affect Reflexes: Bicep (R): 2+, Bicep (L): 2+ - Lab Results Fish Bones: 06/03/18 05:16 06/03/18 05:16 Other Labs: Lab Results x24hrs 06/03/18 06/03/18 Range/Units 05:16 05:16 WBC 7.5 (4.8-10.8) x10^3/uL RBC 3.52 L (4.20-5.40) 10^6/uL Hgb 12.0 (12.0-16.0) g/dL Hct 35.0 L (37.0-47.0) % MCV 99.4 H (81.0-99.0) fL MCH 34.1 H (27.0-31.0) pg MCHC 34.3 (32.0-36.0) g/dL RDW 13.7 (12.0-15.0) % Plt Count 159 (130-450) 10^3/uL MPV 7.8 L (7.9-10.8) fL Neut # (Auto) 5.4 (1.5-6.6) 10^3/uL Lymph # (Auto) 0.8 L (1.5-3.5) 10^3/uL Het[place]er # (Auto) 0.8 (0.0-1.0) 10^3/uL Eos # (Auto) 0.5 (0.0-0.7) 10^3/uL Baso # (Auto) 0.1 (0.0-0.1) 10^3/uL Absolute Nucleated RBC 0.00 x10^3/uL Nucleated RBC % 0.0 /100WBC Sodium 138 (135-145) mmol/L Potassium 4.2 (3.5-5.0) mmol/L Chloride 106 (101-111) mmol/L Carbon Dioxide 24 (21-32) mmol/L Anion Gap 8.0 (6-13) BUN 8 (6-20) mg/dL Creatinine 0.6 (0.4-1.0) mg/dL Estimated GFR (MDRD) 95 (>89) Glucose 109 H (70-100) mg/dL Calcium 8.5 (8.5-10.3) mg/dL Total Bilirubin 1.8 H (0.2-1.0) mg/dL AST 206 H (10-42) IU/L ALT 43 (10-60) IU/L Alkaline Phosphatase 157 H (42-121) IU/L Total Protein 6.0 L (6.7-8.2) g/dL Albumin 3.1 L (3.2-5.5) g/dL Globulin 2.9 (2.1-4.2) g/dL Albumin/Globulin Ratio 1.1 (1.0-2.2) ABX Reporting Has patient been on IV antibiotics over the past 48 hours?: No Assessment/Plan - Problem List (1) Abnormal LFTs (liver function tests) Impression: The patient had a profound increase in her LFTs including; AST/ALT from 15/<10 upon admission, now at 845/78 and today these values are improved to 206/43. She was found to have normal INR/PTT at 1.0/11.6, an elevated LDH of 713, elevated GGT of 120, an elevated alk phos of 136 up to 157 today, normal ammonia of 23.9, normal lipase at 38, normal hgA1C of 5.6%, and an elevated fasting blood glucose of 129 down to 109 this morning. Her planned right hip repair has been on hold. An abdominal/pelvis CT with contrast was ordered and final results show a dilated common bile duct which could be from a previous obstruction, ampullary dysfunction or acute obstruction. The patient does not have abdominal pain today. 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 Other contributing factors is that the patient's TSH was grossly elevated at >15 , she is prescribed a dopamine agonist. As per her daughter, she does not believe that she has been taking her medications reliably and/or as prescribed. Her BNP was elevated so these abnormalities could be from hepatic congestion ( heart failure). Today on exam the patient's daughter asked about the oxycodone that caused her mother to become profoundly confused may have related to this liver problem. There remains to be no clear etiology, so I have ordered an abdominal ultrasound as a follow up to the CT. The patient is medically cleared as these values are improved and she no longer has abdominal pain. Plan: Continue to monitor and treat pain. Follow labs and await final US results. (2) Closed right hip fracture Impression: The patient was ambulating and lost her balance while under the care of her daughter. Melodie, the patient's daughter, believes that her mother was conscious throughout the whole process. Once in the ED imaging confirmed a fractured right femur. Dr. Chowdhury was contacted and will plan for surgery. The hip appears minimally swollen with no open areas of injury. The patient and her daughter do not believe that she may have hit her head during the fall and there are no other obvious areas of injury. Plan: Treat pain, and monitor. Qualifiers: Encounter type: initial encounter Qualified Code(s): S72.001A - Fracture of unspecified part of neck of right femur, initial encounter for closed fracture (3) Fall Impression: The primary reason for the patient re-locating to [facility] from [place] as she was falling more frequently which was likely due to the progression of her Parkinson's disease. Plan: Bed rest, await surgery to repair her right hip in the AM, then PT/OT evaluation and post-op care. Qualifiers: Encounter type: subsequent encounter Qualified Code(s): W19.XXXD - Unspecified fall, subsequent encounter (4) Parkinson's disease Impression: The patient has had this for the past several years and is prescribed Carbidopa/ levodopa at home, and this continues here. She consequently has become progressively weak, and this has been getting worse as per her daughter for at least the past year. She has baseline tremors. It is unclear whether the patient has been taking this as prescribed at home. Today, the patient requested that her dose be doubled as this was how she was supposed to take them. Plan: Continue to monitor mental status. (5) GERD (gastroesophageal reflux disease) Impression: The patient has a history of this and is prescribed Dexilant at home. She continues on IV Protonix while in the hospital. Plan: continue to monitor and treat nausea. (6) Hypothyroidism Impression: The patient has a history of this and is prescribed Synthroid at home, which continues here. A TSH was checked and is elevated at greater than 15, so I have prescribed this in an IV for at 50mcg daily until after her surgery. She should be continued at a higher dose than she reported upon admission, although there may be some discrepancy as to her compliance. Plan: Continue medication. Qualifiers: Hypothyroidism type: acquired Qualified Code(s): E03.9 - Hypothyroidism, unspecified (7) Hypertension Impression: The patient is prescribed lasix, norvasc and metoprolol at home and these are now on hold as she is pre-op. Plan: Continue to hold home meds, IVFs, and monitor blood pressures. Qualifiers: Hypertension type: essential hypertension Qualified Code(s): I10 - Essential (primary) hypertension (8) Nausea & vomiting Impression: The patient is found to be very nauseous and this continued after arriving on the nursing floor. She has a history of GERD. She can have her usual lorazepam , zofran and we will continue to treat her pain cause by her acute right femur fracture. Plan: Continue to manage symptoms. (9) Altered mental status Impression: The patient required bilateral wrist restraints on her first night of stay due to agitation and the likelihood of removing IV/morocho. Today, her AMS is nearly resolved and she can converse well during her exam. She has not needed restraints today. Plan: Continue to monitor. Qualifiers: Altered mental status type: transient alteration of awareness Qualified Code(s): R40.4 - Transient alteration of awareness
[2018-06-03] MEDS: CYCLOBENZAPRINE 10 MG TABLET PO PRN (18:36)
[2018-06-03] MEDS: SODIUM CHLORIDE 0.9% 1,000 ML IV SCH (18:37)
--- NOTE | 2018-06-03 20:10 | Ultrasound Report ---
Reason: dilated common bile duct, elevated bilirubin Procedure Date: 06/03/2018 Accession Number: [id number] / [id number] Procedure: US - Abdomen Limited CPT Code: FULL RESULT: EXAM: ABDOMEN ULTRASOUND LIMITED, RUQ EXAM DATE: 06/03/2018 07:12 PM. CLINICAL HISTORY: Dilated common bile duct. Elevated bilirubin. COMPARISON: CT 06/02/2018. TECHNIQUE: Real-time scanning was performed with static images obtained. FINDINGS: Liver: Normal in size and echotexture. 13.9 cm. Main portal vein flow: Hepatopetal. Gallbladder: Surgically absent. Biliary System: CBD measures 18 mm. Abnormally dilated. No obstructing stone or mass identified. Other: The visualized pancreas and right kidney are unremarkable. No free fluid. IMPRESSION: Cholecystectomy. Abnormally dilated intra-and extrahepatic ducts. RADIA
[2018-06-03] MEDS ORDERED: HALOPERIDOL 5 MG/ML VIAL IVP ONE (22:49)
[2018-06-04] MEDS: oxyCODONE 5 MG TABLET PO PRN (00:54)
[2018-06-04] MEDS: SODIUM CHLORIDE FLUSH 0.9% 10 ML SYRINGE IVP SCH ×3 (00:55→15:54)
[2018-06-04 05:51] LABS: BASOPHILS % (AUTO) 0.6 %; EOSINOPHILS # (AUTO) 0.5 10^3/uL (0.0-0.7); EOSINOPHILS % (AUTO) 6.4 %; HGB - HEMOGLOBIN 12.1 g/dL (12.0-16.0); LYMPHOCYTES # (AUTO) 0.8 10^3/uL (1.5-3.5); MEAN CORPUSCULAR HEMOGLOBIN 34.1 pg (27.0-31.0); MEAN CORPUSCULAR HGB CONC 34.5 g/dL (32.0-36.0); MONOCYTES # (AUTO) 0.8 10^3/uL (0.0-1.0); MONOCYTES % (AUTO) 9.9 %; NEUTROPHILS # (AUTO) 5.5 10^3/uL (1.5-6.6); NEUTROPHILS % (AUTO) 72.1 %; PLT - PLATELET COUNT 169 10^3/uL (130-450); RED BLOOD COUNT 3.56 10^6/uL (4.20-5.40); RED CELL DISTRIBUTION WIDTH 13.4 % (12.0-15.0); WHITE BLOOD COUNT 7.7 x10^3/uL (4.8-10.8)
[2018-06-04 05:52] LABS: PT - PROTHROMBIN TIME 11.6 secs (9.9-12.6)
[2018-06-04 06:00] LABS: ALBUMIN 2.9 g/dL (3.2-5.5); ALBUMIN/GLOBULIN RATIO 0.9 (1.0-2.2); BILIRUBIN,TOTAL 1.1 mg/dL (0.2-1.0); CALCIUM 8.4 mg/dL (8.5-10.3); CREATININE 0.5 mg/dL (0.4-1.0); TOTAL PROTEIN 6.1 g/dL (6.7-8.2)
[2018-06-04] MEDS: PANTOPRAZOLE 40 MG TABLET PO SCH ×2 (06:51→16:13)
[2018-06-04] MEDS: CYCLOBENZAPRINE 10 MG TABLET PO PRN ×3 (06:51→21:12)
[2018-06-04] MEDS: SODIUM CHLORIDE 0.9% 1,000 ML IV SCH ×2 (06:51→16:13)
--- NOTE | 2018-06-04 08:54 | ANESTHESIA ---
Pre-Anesthesia VS, & Labs - Diagnosis Right fractured hip - Procedure Right hip arthroplasty Vital Signs: Temp Pulse Resp BP Pulse Ox 37.5 C 77 17 132/65 H 97 06/04/18 00:00 06/04/18 00:00 06/04/18 00:00 06/04/18 00:00 06/04/18 00:00 Height 5 ft 2 in Weight (kg) 63.3 kg Body Mass Index 25.6 - NPO >8 hours - Is Patient ?: Not Applicable - Lab Results Fish Bones: 06/04/18 05:08 06/04/18 05:08 Home Medications and Allergies Home Medications: Ambulatory Orders Medication Instructions Recorded Confirmed Carbidopa/Levodopa 25/100 [Sinemet 2 each PO 0800,1200,1700 06/01/18 06/02/18 25 mg/100 mg] Dexlansoprazole [Dexilant] 60 mg PO QDAC 06/01/18 06/02/18 Furosemide [Lasix] 40 mg PO DAILY 06/01/18 06/01/18 Levothyroxine [Synthroid] 25 mcg PO QDAC 06/01/18 06/01/18 Lorazepam [Ativan] 1 mg PO BID PRN 06/01/18 06/02/18 amLODIPine [Norvasc] 5 mg PO BID 06/01/18 06/01/18 Metoprolol Tartrate 50 mg PO BID 06/02/18 06/02/18 Potassium Chloride 40 meq PO DAILY 06/02/18 06/02/18 Trazodone HCl 50 mg PO QPM PRN 06/02/18 06/02/18 Allergies/Adverse Reactions: Allergies Allergy/AdvReac Type Severity Reaction Status Date / Time hydromorphone [From Dilaudid] Allergy Hallucinati Verified 06/01/18 19:22 ons meperidine [From Demerol] AdvReac Hallucinati Verified 06/03/18 15:31 ons oxycodone AdvReac Hallucinati Verified 06/03/18 15:31 ons Anes History & Medical History - Anesthetic History Anesthesia Complications: reports: No previous complications Family history of Anesthesia Complications: Denies Family history of Malignant Hyperthermia: Denies - Medical History Cardiovascular: reports: Hypertension, Atrial fibrillation, Murmur, Arrhythmia Pulmonary: reports: None Gastrointestinal: reports: GERD Urinary: reports: Incontinence, Chronic bladder infection, Nocturia, Frequency Neuro: reports: Dementia, Parkinson's, Tremors Musculoskeletal: reports: Rheumatoid arthritis, Fatigue Endocrine/Autoimmune: reports: HyPOthyroidism Blood Disorders: reports: None Skin: reports: None Smoking Status: Former smoker Psychosocial: reports: No issues indicated Other Past Medical History: thymus CA - Surgical History General: Cholecystectomy, Appendectomy, Other (Thymectomy) Eyes Ears Nose Throat (EENT): Tonsil/Adenoidectomy Gynecologic: Hysterectomy, Oophrectomy Results - EKG Results EKG Comparison: Reviewed EKG - Echo Results Echo Results: Report reviewed Exam General: Alert, Cooperative Dental: WNL Mouth Openin Fingerbreadth Neck Mobility: Reduced Mallampati classification: II Thyromental Distance: greater than 6 cm Respiratory: Lungs clear Cardiovascular: Regular rate, No murmurs Mental/Cognitive Status: Alert/Oriented X3 Cognitive Status: Within normal limits Plan Anesthesia Type: General Consent for Procedure(s) Verified and Reviewed: No Code Status: Attempt Resuscitation ASA classification: 2-Mild systemic disease Is this case an emergency?: No
[2018-06-04] MEDS ORDERED: LACTATED RINGERS 1,000 ML IV ONE ×2 (09:56→10:20)
[2018-06-04] MEDS ORDERED: SODIUM CHLORIDE 0.9% 1,000 ML IV ONE (09:56)
[2018-06-04] MEDS ORDERED: BUPIVACAINE 0.5% PF 30 ML VIAL ONE (11:36)
[2018-06-04] MEDS ORDERED: BUPIVACAINE 0.5% PF 30 ML VIAL INFIL ONE ×2 (11:48→11:57)
--- NOTE | 2018-06-04 12:26 | PROCEDURE REPORT ---
Hospitalist Procedure Note - Procedure Note Procedure Note: Pre op diagnosis: Right femoral neck fracture, displaced Garden IV Post op diagnosis: Same Procedure: Right bipolar hemiarthroplasty right hip surgeon [place] General anesthesia Complications: None Drains: None EBL 150 cc Specimens: None Operative procedure in detail: The patient was taken to the hospital and positioned in the supine position. General anesthesia was induced. The patient was then moved to the peg board and positioned with the right side up. The signature was checked and the patient's hip was prepped and draped in the usual sterile fashion. A postero lateral approach was made to the hip and an incision was carried down through the subcutaneous tissue. Good hemostasis was obtained. The piriformis tendon was identified and tagged with a tag stitch. The capsule of the hip was opened and tag stitches were placed. The femoral neck fracture was identified and the femoral head was removed using a corkscrew. The femoral head was measured and a 48 mm head was selected for the bipolar portion of the prosthesis. The trial was put into place and thought to seat nicely in the acetabulum. The acetabulum was cleaned out using a rongeur. The osteotome was used to get a starting portal in the lateral aspect of the proximal femur. The trials were then put into place in a successive fashion starting with the size 4 and moving to the size 7. The size [address] and the hip was relocated after placing the trial bipolar head. The hip was located and appeared to be stable in greater than 90 degrees of flexion and 70-80 degrees of internal rotation. The limb lengths were equal. The trial components were removed and the final components were inserted. The hip was located. The wound was irrigated out with copious amounts of normal saline and the piriformis and short external rotators of the hip were repaired. The fascia was closed with 0 vicryl sutures and the fat was reapproximated with 2.0 vicryl sutures. The skin was closed with skin clips. A sterile dressing was applied and the hip abduction pillow was put into place. The patient was rolled to her back and transferred to her bed. At the end of the procedure all sponge and needle counts were correct x 2. There were no complications.
[2018-06-04] MEDS: CARBIDOPA/LEVODOPA 25 MG/100 MG TABLET PO SCH ×4 (13:48→20:26)
[2018-06-04] MEDS: LEVOTHYROXINE 100 MCG VIAL IVP SCH (13:48)
[2018-06-04] MEDS: POLYETHYLENE GLYCOL 3350 17 GM PACKET PO SCH (13:49)
--- NOTE | 2018-06-04 13:52 | PROVIDER PROGRESS NOTE ---
Subjective - Prog Note Date Prog Note Date: 06/04/18 - Subjective Pt reports feeling: No change Subjective: pt has some confused. Pt report she had pain when she moved her leg. Pt denies fever, chill, CP, SOB. Pt will have orthopedics surgery today. Objective - Vital Signs/Intake & Output Vital Signs: Vital Signs x48h Temp Pulse Resp BP BP Pulse Ox 06/04/18 13:28 36.4 C L 87 18 147/56 H 06/04/18 13:03 36.4 C L 16 148/74 H 100 06/04/18 12:52 16 143/58 H 96 06/04/18 12:45 16 151/62 H 97 06/04/18 12:40 19 149/63 H 99 06/04/18 12:35 16 153/66 H 99 06/04/18 12:30 36.4 C L 16 146/65 H 100 06/04/18 12:25 15 149/62 H 100 06/04/18 12:20 18 150/63 H 100 06/04/18 12:15 16 146/66 H 100 06/04/18 12:11 36.6 C 15 143/67 H 100 06/04/18 09:08 37.3 C 70 18 132/59 H 97 Intake & Output: Intake & Output 06/01/18 06/02/18 06/03/18 06/04/18 23:59 23:59 23:59 23:59 Intake Total 3010 1714 1000 Output Total 700 2225 5200 1000 Balance -700 785 -9146 0 - Lab Results Fish Bones: 06/04/18 05:08 06/04/18 05:08 Other Labs: Lab Results x24hrs 06/04/18 06/04/18 06/04/18 Range/Units 09:12 05:08 05:08 WBC (4.8-10.8) x10^3/uL RBC (4.20-5.40) 10^6/uL Hgb (12.0-16.0) g/dL Hct (37.0-47.0) % MCV (81.0-99.0) fL MCH (27.0-31.0) pg MCHC (32.0-36.0) g/dL RDW (12.0-15.0) % Plt Count (130-450) 10^3/uL MPV (7.9-10.8) fL Neut # (Auto) (1.5-6.6) 10^3/uL Lymph # (Auto) (1.5-3.5) 10^3/uL Placer # (Auto) (0.0-1.0) 10^3/uL Eos # (Auto) (0.0-0.7) 10^3/uL Baso # (Auto) (0.0-0.1) 10^3/uL Absolute Nucleated RBC x10^3/uL Nucleated RBC % /100WBC PT 11.6 (9.9-12.6) secs INR 1.0 (0.8-1.2) Sodium (135-145) mmol/L Potassium (3.5-5.0) mmol/L Chloride (101-111) mmol/L Carbon Dioxide (21-32) mmol/L Anion Gap (6-13) BUN (6-20) mg/dL Creatinine (0.4-1.0) mg/dL Estimated GFR (MDRD) (>89) Glucose (70-100) mg/dL Calcium (8.5-10.3) mg/dL Total Bilirubin (0.2-1.0) mg/dL AST (10-42) IU/L ALT (10-60) IU/L Alkaline Phosphatase (42-121) IU/L Total Protein (6.7-8.2) g/dL Albumin (3.2-5.5) g/dL Globulin (2.1-4.2) g/dL Albumin/Globulin Ratio (1.0-2.2) Blood Type O POSITIVE Blood Type Recheck O POSITIVE Antibody Screen NEGATIVE 06/04/18 06/04/18 Range/Units 05:08 05:08 WBC 7.7 (4.8-10.8) x10^3/uL RBC 3.56 L (4.20-5.40) 10^6/uL Hgb 12.1 (12.0-16.0) g/dL Hct 35.2 L (37.0-47.0) % MCV 99.0 (81.0-99.0) fL MCH 34.1 H (27.0-31.0) pg MCHC 34.5 (32.0-36.0) g/dL RDW 13.4 (12.0-15.0) % Plt Count 169 (130-450) 10^3/uL MPV 8.0 (7.9-10.8) fL Neut # (Auto) 5.5 (1.5-6.6) 10^3/uL Lymph # (Auto) 0.8 L (1.5-3.5) 10^3/uL Placer # (Auto) 0.8 (0.0-1.0) 10^3/uL Eos # (Auto) 0.5 (0.0-0.7) 10^3/uL Baso # (Auto) 0.0 (0.0-0.1) 10^3/uL Absolute Nucleated RBC 0.00 x10^3/uL Nucleated RBC % 0.0 /100WBC PT (9.9-12.6) secs INR (0.8-1.2) Sodium 138 (135-145) mmol/L Potassium 3.8 (3.5-5.0) mmol/L Chloride 105 (101-111) mmol/L Carbon Dioxide 25 (21-32) mmol/L Anion Gap 8.0 (6-13) BUN 8 (6-20) mg/dL Creatinine 0.5 (0.4-1.0) mg/dL Estimated GFR (MDRD) 118 (>89) Glucose 124 H (70-100) mg/dL Calcium 8.4 L (8.5-10.3) mg/dL Total Bilirubin 1.1 H (0.2-1.0) mg/dL AST 75 H (10-42) IU/L ALT 33 (10-60) IU/L Alkaline Phosphatase 145 H (42-121) IU/L Total Protein 6.1 L (6.7-8.2) g/dL Albumin 2.9 L (3.2-5.5) g/dL Globulin 3.2 (2.1-4.2) g/dL Albumin/Globulin Ratio 0.9 L (1.0-2.2) Blood Type Blood Type Recheck Antibody Screen Assessment/Plan - Problem List (1) Closed right hip fracture Impression: Impression: 06/04 pt will have surgery today, will follow up will have PT/OT pain control The patient was ambulating and lost her balance while under the care of her daughter. Melodie, the patient's daughter, believes that her mother was conscious throughout the whole process. Once in the ED imaging confirmed a fractured right femur. Dr. Chowdhury was contacted and will plan for surgery. The hip appears minimally swollen with no open areas of injury. The patient and her daughter do not believe that she may have hit her head during the fall and there are no other obvious areas of injury. Plan: Treat pain, and monitor. (2) Abnormal LFTs (liver function tests) Impression: 06/04 resolved as pt's baseline continue daily lab monitor The patient had a profound increase in her LFTs including; AST/ALT from 15/<10 upon admission, now at 845/78 and today these values are improved to 206/43. She was found to have normal INR/PTT at 1.0/11.6, an elevated LDH of 713, elevated GGT of 120, an elevated alk phos of 136 up to 157 today, normal ammonia of 23.9, normal lipase at 38, normal hgA1C of 5.6%, and an elevated fasting blood glucose of 129 down to 109 this morning. Her planned right hip repair has been on hold. An abdominal/pelvis CT with contrast was ordered and final results show a dilated common bile duct which could be from a previous obstruction, ampullary dysfunction or acute obstruction. The patient does not have abdominal pain today. 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 Other contributing factors is that the patient's TSH was grossly elevated at >15 , she is prescribed a dopamine agonist. As per her daughter, she does not believe that she has been taking her medications reliably and/or as prescribed. Her BNP was elevated so these abnormalities could be from hepatic congestion ( heart failure). Today on exam the patient's daughter asked about the oxycodone that caused her mother to become profoundly confused may have related to this liver problem. There remains to be no clear etiology, so I have ordered an abdominal ultrasound as a follow up to the CT. The patient is medically cleared as these values are improved and she no longer has abdominal pain. Plan: Continue to monitor and treat pain. Follow labs and await final US results. (3) Fall Impression: fall precaution The primary reason for the patient re-locating to [facility] from [place] as she was falling more frequently which was likely due to the progression of her Parkinson's disease. Plan: Bed rest, await surgery to repair her right hip in the AM, then PT/OT evaluation and post-op care. (4) Parkinson's disease Impression: The patient has had this for the past several years and is prescribed Carbidopa/ levodopa at home, and this continues here. She consequently has become progressively weak, and this has been getting worse as per her daughter for at least the past year. She has baseline tremors. It is unclear whether the patient has been taking this as prescribed at home. Today, the patient requested that her dose be doubled as this was how she was supposed to take them. Plan: Continue to monitor mental status. (5) GERD (gastroesophageal reflux disease) Impression: The patient has a history of this and is prescribed Dexilant at home. She continues on IV Protonix while in the hospital. Plan: continue to monitor and treat nausea. (6) Hypothyroidism Impression: The patient has a history of this and is prescribed Synthroid at home, which continues here. A TSH was checked and is elevated at greater than 15, so I have prescribed this in an IV for at 50mcg daily until after her surgery. She should be continued at a higher dose than she reported upon admission, although there may be some discrepancy as to her compliance. Plan: Continue medication. (7) Hypertension Impression: The patient is prescribed lasix, norvasc and metoprolol at home and these are now on hold as she is pre-op. Plan: Continue to hold home meds, IVFs, and monitor blood pressures. (8) Nausea & vomiting Impression: The patient is found to be very nauseous and this continued after arriving on the nursing floor. She has a history of GERD. She can have her usual lorazepam , zofran and we will continue to treat her pain cause by her acute right femur fracture. Plan: Continue to manage symptoms. (9) Altered mental status Impression: 06/04 pt has still some confusion but improved from previous closely monitor, continue to support The patient required bilateral wrist restraints on her first night of stay due to agitation and the likelihood of removing IV/morocho. Today, her AMS is nearly resolved and she can converse well during her exam. She has not needed restraints today. Plan: Continue to monitor. Qualifiers: Encounter type: initial encounter Qualified Code(s): S72.001A - Fracture of unspecified part of neck of right femur, initial encounter for closed fracture
[2018-06-04] MEDS: MORPHINE 2 MG/ML SYRINGE IVP PRN ×3 (16:12→21:11)
[2018-06-04] MEDS: KETOROLAC 15 MG/ML VIAL IVP PRN (17:59)
[2018-06-04] MEDS: SENNA 8.6 MG TABLET PO SCH (19:02)
[2018-06-04] MEDS: DOCUSATE SODIUM 250 MG CAPSULE PO SCH (19:02)
[2018-06-04] MEDS: QUEtiapine 25 MG TABLET PO PRN (20:26)
[2018-06-04 20:58] LABS: HGB - HEMOGLOBIN 11.6 g/dL (12.0-16.0)
[2018-06-05] MEDS: MORPHINE 2 MG/ML SYRINGE IVP PRN (00:40)
[2018-06-05] MEDS: KETOROLAC 15 MG/ML VIAL IVP PRN ×3 (02:54→17:30)
[2018-06-05] MEDS: SODIUM CHLORIDE 0.9% 1,000 ML IV SCH (04:32)
[2018-06-05] MEDS ORDERED: HALOPERIDOL 5 MG/ML VIAL IM SCH (07:00)
[2018-06-05] MEDS: SODIUM CHLORIDE FLUSH 0.9% 10 ML SYRINGE IVP SCH ×3 (07:16→17:35)
[2018-06-05] MEDS: PANTOPRAZOLE 40 MG TABLET PO SCH ×2 (07:18→17:35)
[2018-06-05 07:56] LABS: BASOPHILS % (AUTO) 0.5 %; EOSINOPHILS # (AUTO) 0.2 10^3/uL (0.0-0.7); EOSINOPHILS % (AUTO) 2.1 %; HGB - HEMOGLOBIN 10.3 g/dL (12.0-16.0); LYMPHOCYTES # (AUTO) 0.8 10^3/uL (1.5-3.5); LYMPHOCYTES % (AUTO) 9.2 %; MEAN CORPUSCULAR HGB CONC 34.7 g/dL (32.0-36.0); MEAN CORPUSCULAR VOLUME 97.9 fL (81.0-99.0); MEAN PLATELET VOLUME 7.1 fL (7.9-10.8); MONOCYTES # (AUTO) 0.8 10^3/uL (0.0-1.0); MONOCYTES % (AUTO) 10.2 %; NEUTROPHILS # (AUTO) 6.4 10^3/uL (1.5-6.6); PLT - PLATELET COUNT 163 10^3/uL (130-450); RED BLOOD COUNT 3.04 10^6/uL (4.20-5.40); RED CELL DISTRIBUTION WIDTH 13.2 % (12.0-15.0); WHITE BLOOD COUNT 8.2 x10^3/uL (4.8-10.8)
[2018-06-05 08:11] LABS: ALBUMIN 2.7 g/dL (3.2-5.5); ALBUMIN/GLOBULIN RATIO 0.8 (1.0-2.2); BILIRUBIN,TOTAL 0.9 mg/dL (0.2-1.0); CALCIUM 8.4 mg/dL (8.5-10.3); CREATININE 0.5 mg/dL (0.4-1.0); TOTAL PROTEIN 5.9 g/dL (6.7-8.2)
[2018-06-05 08:21] LABS: PT - PROTHROMBIN TIME 11.6 secs (9.9-12.6)
[2018-06-05] MEDS: POLYETHYLENE GLYCOL 3350 17 GM PACKET PO SCH ×2 (11:08→14:53)
[2018-06-05] MEDS: ACETAMINOPHEN 325 MG TABLET PO PRN (11:09)
[2018-06-05] MEDS: DOCUSATE SODIUM 250 MG CAPSULE PO SCH ×2 (11:09→14:53)
[2018-06-05] MEDS: LEVOTHYROXINE 100 MCG VIAL IVP SCH (11:10)
[2018-06-05] MEDS: SENNA 8.6 MG TABLET PO SCH ×2 (11:10→14:53)
[2018-06-05] MEDS: CARBIDOPA/LEVODOPA 25 MG/100 MG TABLET PO SCH ×4 (14:51→22:11)
--- NOTE | 2018-06-05 15:38 | PROVIDER PROGRESS NOTE ---
Subjective - Prog Note Date Prog Note Date: 06/05/18 - Subjective Pt reports feeling: No change Subjective: pt is confused today morning, she pulled out IV and morocho by herself, and agitated. But pt did not have fever, cough. Current Medications - Current Medications Current Medications: Active Medications Acetaminophen (Tylenol) 650 mg PO Q4HR PRN PRN Reason: Pain or Fever > 38C (100.4F) Carbidopa/Levodopa (Sinemet 25 Mg/100 Mg) 2 tab PO QID [facility] Last Admin: 06/05/18 14:53 Dose: Not Given Cyclobenzaprine HCl (Flexeril) 10 mg PO TID PRN PRN Reason: Spasms Last Admin: 06/04/18 21:12 Dose: 10 mg Docusate Sodium (Colace 250mg Capsule) 250 mg PO DAILY [facility] Last Admin: 06/05/18 14:53 Dose: Not Given Sodium Chloride (Normal Saline 0.9%) 1,000 mls @ 83.333 mls/hr IV .Q12H [facility] Last Infusion: 06/05/18 15:14 Dose: Infused Ketorolac Tromethamine (Toradol Inj (15mg)) 15 mg IVP Q6HR PRN PRN Reason: PAIN Stop: 06/09/18 15:43 Last Admin: 06/05/18 11:10 Dose: 15 mg Levothyroxine Sodium (Synthroid Inj) 50 mcg IVP DAILY [facility] Last Admin: 06/05/18 11:10 Dose: 50 mcg Pantoprazole Sodium (Protonix) 40 mg PO BIDAC [facility] Last Admin: 06/05/18 07:18 Dose: Not Given Polyethylene Glycol (Miralax) 17 gm PO DAILY [facility] Last Admin: 06/05/18 14:53 Dose: Not Given Prochlorperazine Edisylate (Compazine Inj) 10 mg IVP Q4HR PRN PRN Reason: Nausea / Vomiting Last Admin: 06/01/18 20:16 Dose: 10 mg Prochlorperazine Maleate (Compazine Supp) 25 mg AR BID PRN PRN Reason: Nausea / Vomiting Quetiapine Fumarate (Seroquel) 25 mg PO Q6H PRN PRN Reason: Agitation Last Admin: 06/04/18 20:26 Dose: 25 mg Senna (Senokot) 8.6 mg PO DAILY [facility] Last Admin: 06/05/18 14:53 Dose: Not Given Sodium Chloride (Normal Saline Flush 0.9%) 10 ml IVP PRN PRN PRN Reason: NEEDED PER PROVIDER ORDERS Last Admin: 06/03/18 13:34 Dose: 10 ml Sodium Chloride (Normal Saline Flush 0.9%) 10 ml IVP 0100,0900,1700 [facility] Last Admin: 06/05/18 14:54 Dose: 10 ml Carbidopa/Levodopa 25/100 [Sinemet 25 mg/100 mg] 2 each PO 0800,1200,1700 Dexlansoprazole [Dexilant] 60 mg PO QDAC 06/01/18 Furosemide [Lasix] 40 mg PO DAILY 06/01/18 Levothyroxine [Synthroid] 25 mcg PO QDAC 06/01/18 Lorazepam [Ativan] 1 mg PO BID PRN 06/01/18 amLODIPine [Norvasc] 5 mg PO BID 06/01/18 Metoprolol Tartrate 50 mg PO BID 06/02/18 Potassium Chloride 40 meq PO DAILY 06/02/18 Trazodone HCl 50 mg PO QPM PRN 06/02/18 Objective - Vital Signs/Intake & Output Reviewed Vital Signs: Yes Vital Signs: Vital Signs x48h Temp Pulse Pulse Resp BP BP Pulse Ox 06/05/18 11:55 88 141/55 H 06/05/18 07:40 37.3 C 81 18 136/49 H 99 Intake & Output: Intake & Output 06/02/18 06/03/18 06/04/18 06/05/18 23:59 23:59 23:59 23:59 Intake Total 3010 1714 2230 2800 Output Total 2225 5200 2600 2450 Balance 785 -3786 -370 350 - Objective General Appearance: positive: No acute distress, Alert. negative: Lethargic Eyes Bilateral: positive: Normal inspection, PERRL, No lid inflammation, Conjunctivae nml ENT: positive: ENT inspection nml, Pharynx nml, No signs of dehydration. negative: Purulent nasal drainage, Pharyngeal erythema, Oral lesions Neck: positive: Nml inspection, Thyroid nml, No JVD, Trachea midline. negative : Thyromegaly, Lymphadenopathy (R), Lymphadenopathy (L), Stiff neck, Swelling/ bruising, Tracheal deviation Respiratory: positive: Chest non-tender, No respiratory distress, Breath sounds nml. negative: Wheezes, Rales, Rhonchi Cardiovascular: positive: Regular rate & rhythm, No murmur, No gallop. negative : Irregularly irregular, Extrasystoles, Tachycardia, Bradycardia, JVD present, Systolic murmur, Diastolic murmur Peripheral Pulses: 2+ Radial (R), 2+ Radial (L), 2+ Dorsalis pedis (R), 2+ Dorsalis pedis (L) Abdomen: positive: Non-tender, No organomegaly, Nml bowel sounds, No distention. negative: Tenderness, Guarding, Rebound Back: positive: Nml inspection. negative: CVA tenderness (R), CVA tenderness (L ) Skin: positive: Color nml, No rash, Warm, Dry. negative: Cyanosis, Diaphoresis , Pallor Extremities: positive: Non-tender, Full ROM, Nml appearance. negative: Calf tenderness, Joint swelling, Carol's sign/cords Neurologic/Psychiatric: negative: Weakness, Sensory loss, Facial droop, Slurred/ abnml speech - Lab Results Fish Bones: 06/05/18 07:44 06/05/18 07:44 Other Labs: Lab Results x24hrs 06/05/18 06/05/18 06/05/18 Range/Units 07:44 07:44 07:44 WBC 8.2 (4.8-10.8) x10^3/uL RBC 3.04 L (4.20-5.40) 10^6/uL Hgb 10.3 L (12.0-16.0) g/dL Hct 29.7 L (37.0-47.0) % MCV 97.9 (81.0-99.0) fL MCH 34.0 H (27.0-31.0) pg MCHC 34.7 (32.0-36.0) g/dL RDW 13.2 (12.0-15.0) % Plt Count 163 (130-450) 10^3/uL MPV 7.1 L (7.9-10.8) fL Neut # (Auto) 6.4 (1.5-6.6) 10^3/uL Lymph # (Auto) 0.8 L (1.5-3.5) 10^3/uL Smyth # (Auto) 0.8 (0.0-1.0) 10^3/uL Eos # (Auto) 0.2 (0.0-0.7) 10^3/uL Baso # (Auto) 0.0 (0.0-0.1) 10^3/uL Absolute Nucleated RBC 0.00 x10^3/uL Nucleated RBC % 0.0 /100WBC PT 11.6 (9.9-12.6) secs INR 1.0 (0.8-1.2) Sodium 139 (135-145) mmol/L Potassium 3.5 (3.5-5.0) mmol/L Chloride 107 (101-111) mmol/L Carbon Dioxide 26 (21-32) mmol/L Anion Gap 6.0 (6-13) BUN 9 (6-20) mg/dL Creatinine 0.5 (0.4-1.0) mg/dL Estimated GFR (MDRD) 118 (>89) Glucose 128 H (70-100) mg/dL Calcium 8.4 L (8.5-10.3) mg/dL Total Bilirubin 0.9 (0.2-1.0) mg/dL AST 57 H (10-42) IU/L ALT 24 (10-60) IU/L Alkaline Phosphatase 105 (42-121) IU/L Total Protein 5.9 L (6.7-8.2) g/dL Albumin 2.7 L (3.2-5.5) g/dL Globulin 3.2 (2.1-4.2) g/dL Albumin/Globulin Ratio 0.8 L (1.0-2.2) 06/04/18 Range/Units 20:51 WBC (4.8-10.8) x10^3/uL RBC (4.20-5.40) 10^6/uL Hgb 11.6 L (12.0-16.0) g/dL Hct 33.7 L (37.0-47.0) % MCV (81.0-99.0) fL MCH (27.0-31.0) pg MCHC (32.0-36.0) g/dL RDW (12.0-15.0) % Plt Count (130-450) 10^3/uL MPV (7.9-10.8) fL Neut # (Auto) (1.5-6.6) 10^3/uL Lymph # (Auto) (1.5-3.5) 10^3/uL Smyth # (Auto) (0.0-1.0) 10^3/uL Eos # (Auto) (0.0-0.7) 10^3/uL Baso # (Auto) (0.0-0.1) 10^3/uL Absolute Nucleated RBC x10^3/uL Nucleated RBC % /100WBC PT (9.9-12.6) secs INR (0.8-1.2) Sodium (135-145) mmol/L Potassium (3.5-5.0) mmol/L Chloride (101-111) mmol/L Carbon Dioxide (21-32) mmol/L Anion Gap (6-13) BUN (6-20) mg/dL Creatinine (0.4-1.0) mg/dL Estimated GFR (MDRD) (>89) Glucose (70-100) mg/dL Calcium (8.5-10.3) mg/dL Total Bilirubin (0.2-1.0) mg/dL AST (10-42) IU/L ALT (10-60) IU/L Alkaline Phosphatase (42-121) IU/L Total Protein (6.7-8.2) g/dL Albumin (3.2-5.5) g/dL Globulin (2.1-4.2) g/dL Albumin/Globulin Ratio (1.0-2.2) ABX Reporting Has patient been on IV antibiotics over the past 48 hours?: No Assessment/Plan - Problem List (1) Closed right hip fracture Impression: Impression: continue PT/OT pain control. Per pt's daughter stated pt did not have any problem with Morphine but pt presented confused when pt was given Morphine by nurse on last night. hold Morphine order Toradol, and Tylenol 06/04 pt will have surgery today, will follow up will have PT/OT pain control The patient was ambulating and lost her balance while under the care of her daughter. Melodie, the patient's daughter, believes that her mother was conscious throughout the whole process. Once in the ED imaging confirmed a fractured right femur. Dr. Chowdhury was contacted and will plan for surgery. The hip appears minimally swollen with no open areas of injury. The patient and her daughter do not believe that she may have hit her head during the fall and there are no other obvious areas of injury. Plan: Treat pain, and monitor. (2) Abnormal LFTs (liver function tests) Impression: 06/04 resolved as pt's baseline continue daily lab monitor The patient had a profound increase in her LFTs including; AST/ALT from 15/<10 upon admission, now at 845/78 and today these values are improved to 206/43. She was found to have normal INR/PTT at 1.0/11.6, an elevated LDH of 713, elevated GGT of 120, an elevated alk phos of 136 up to 157 today, normal ammonia of 23.9, normal lipase at 38, normal hgA1C of 5.6%, and an elevated fasting blood glucose of 129 down to 109 this morning. Her planned right hip repair has been on hold. An abdominal/pelvis CT with contrast was ordered and final results show a dilated common bile duct which could be from a previous obstruction, ampullary dysfunction or acute obstruction. The patient does not have abdominal pain today. 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 Other contributing factors is that the patient's TSH was grossly elevated at >15 , she is prescribed a dopamine agonist. As per her daughter, she does not believe that she has been taking her medications reliably and/or as prescribed. Her BNP was elevated so these abnormalities could be from hepatic congestion ( heart failure). Today on exam the patient's daughter asked about the oxycodone that caused her mother to become profoundly confused may have related to this liver problem. There remains to be no clear etiology, so I have ordered an abdominal ultrasound as a follow up to the CT. The patient is medically cleared as these values are improved and she no longer has abdominal pain. Plan: Continue to monitor and treat pain. Follow labs and await final US results. (3) Fall Impression: fall precaution The primary reason for the patient re-locating to [facility] from [place] as she was falling more frequently which was likely due to the progression of her Parkinson's disease. Plan: Bed rest, await surgery to repair her right hip in the AM, then PT/OT evaluation and post-op care. (4) Parkinson's disease Impression: continue Carbidopa/levodopa The patient has had this for the past several years and is prescribed Carbidopa/ levodopa at home, and this continues here. She consequently has become progressively weak, and this has been getting worse as per her daughter for at least the past year. She has baseline tremors. It is unclear whether the patient has been taking this as prescribed at home. Today, the patient requested that her dose be doubled as this was how she was supposed to take them. Plan: Continue to monitor mental status. (5) GERD (gastroesophageal reflux disease) Impression: The patient has a history of this and is prescribed Dexilant at home. She continues on IV Protonix while in the hospital. Plan: continue to monitor and treat nausea. (6) Hypothyroidism Impression: 06/05 TSH is high, pt's Levothyoxine increase to 50 mcg from 25 mcg The patient has a history of this and is prescribed Synthroid at home, which continues here. A TSH was checked and is elevated at greater than 15, so I have prescribed this in an IV for at 50mcg daily until after her surgery. She should be continued at a higher dose than she reported upon admission, although there may be some discrepancy as to her compliance. Plan: Continue medication. (7) Hypertension Impression: The patient is prescribed lasix, norvasc and metoprolol at home and these are now on hold as she is pre-op. Plan: Continue to hold home meds, IVFs, and monitor blood pressures. (8) Nausea & vomiting Impression: The patient is found to be very nauseous and this continued after arriving on the nursing floor. She has a history of GERD. She can have her usual lorazepam , zofran and we will continue to treat her pain cause by her acute right femur fracture. Plan: Continue to manage symptoms. (9) Altered mental status Impression: 06/05 pt is confused today morning. hold Morphine, which may cause pt's confusion , per pt's history and family reports neuro check, continue closely monitor and support 06/04 pt has still some confusion but improved from previous closely monitor, continue to support The patient required bilateral wrist restraints on her first night of stay due to agitation and the likelihood of removing IV/morocho. Today, her AMS is nearly resolved and she can converse well during her exam. She has not needed restraints today. Plan: Continue to monitor. Qualifiers: Encounter type: initial encounter Qualified Code(s): S72.001A - Fracture of unspecified part of neck of right femur, initial encounter for closed fracture
[2018-06-05] MEDS: CYCLOBENZAPRINE 10 MG TABLET PO PRN (17:35)
--- NOTE | 2018-06-05 18:33 | PROVIDER PROGRESS NOTE ---
Subjective - Prog Note Date Prog Note Date: 06/05/18 Prog Note Time: 06:30 - Subjective Pt reports feeling: Improved Objective - Vital Signs/Intake & Output Vital Signs: Vital Signs x48h Temp Pulse Pulse Resp BP BP Pulse Ox 06/05/18 15:40 36.3 C L 78 18 132/48 H 96 06/05/18 11:55 88 141/55 H Intake & Output: Intake & Output 06/02/18 06/03/18 06/04/18 06/05/18 23:59 23:59 23:59 23:59 Intake Total 3010 1714 2230 2800 Output Total 2225 5200 2600 2450 Balance 902 -6668 -214 350 - Objective Extremities: positive: Nml appearance (Limb lengths appear equal. Dressing intact.) - Lab Results Fish Bones: 06/05/18 07:44 06/05/18 07:44 Other Labs: Lab Results x24hrs 06/05/18 06/05/18 06/05/18 Range/Units 07:44 07:44 07:44 WBC 8.2 (4.8-10.8) x10^3/uL RBC 3.04 L (4.20-5.40) 10^6/uL Hgb 10.3 L (12.0-16.0) g/dL Hct 29.7 L (37.0-47.0) % MCV 97.9 (81.0-99.0) fL MCH 34.0 H (27.0-31.0) pg MCHC 34.7 (32.0-36.0) g/dL RDW 13.2 (12.0-15.0) % Plt Count 163 (130-450) 10^3/uL MPV 7.1 L (7.9-10.8) fL Neut # (Auto) 6.4 (1.5-6.6) 10^3/uL Lymph # (Auto) 0.8 L (1.5-3.5) 10^3/uL Dale # (Auto) 0.8 (0.0-1.0) 10^3/uL Eos # (Auto) 0.2 (0.0-0.7) 10^3/uL Baso # (Auto) 0.0 (0.0-0.1) 10^3/uL Absolute Nucleated RBC 0.00 x10^3/uL Nucleated RBC % 0.0 /100WBC PT 11.6 (9.9-12.6) secs INR 1.0 (0.8-1.2) Sodium 139 (135-145) mmol/L Potassium 3.5 (3.5-5.0) mmol/L Chloride 107 (101-111) mmol/L Carbon Dioxide 26 (21-32) mmol/L Anion Gap 6.0 (6-13) BUN 9 (6-20) mg/dL Creatinine 0.5 (0.4-1.0) mg/dL Estimated GFR (MDRD) 118 (>89) Glucose 128 H (70-100) mg/dL Calcium 8.4 L (8.5-10.3) mg/dL Total Bilirubin 0.9 (0.2-1.0) mg/dL AST 57 H (10-42) IU/L ALT 24 (10-60) IU/L Alkaline Phosphatase 105 (42-121) IU/L Total Protein 5.9 L (6.7-8.2) g/dL Albumin 2.7 L (3.2-5.5) g/dL Globulin 3.2 (2.1-4.2) g/dL Albumin/Globulin Ratio 0.8 L (1.0-2.2) 06/04/18 Range/Units 20:51 WBC (4.8-10.8) x10^3/uL RBC (4.20-5.40) 10^6/uL Hgb 11.6 L (12.0-16.0) g/dL Hct 33.7 L (37.0-47.0) % MCV (81.0-99.0) fL MCH (27.0-31.0) pg MCHC (32.0-36.0) g/dL RDW (12.0-15.0) % Plt Count (130-450) 10^3/uL MPV (7.9-10.8) fL Neut # (Auto) (1.5-6.6) 10^3/uL Lymph # (Auto) (1.5-3.5) 10^3/uL Dale # (Auto) (0.0-1.0) 10^3/uL Eos # (Auto) (0.0-0.7) 10^3/uL Baso # (Auto) (0.0-0.1) 10^3/uL Absolute Nucleated RBC x10^3/uL Nucleated RBC % /100WBC PT (9.9-12.6) secs INR (0.8-1.2) Sodium (135-145) mmol/L Potassium (3.5-5.0) mmol/L Chloride (101-111) mmol/L Carbon Dioxide (21-32) mmol/L Anion Gap (6-13) BUN (6-20) mg/dL Creatinine (0.4-1.0) mg/dL Estimated GFR (MDRD) (>89) Glucose (70-100) mg/dL Calcium (8.5-10.3) mg/dL Total Bilirubin (0.2-1.0) mg/dL AST (10-42) IU/L ALT (10-60) IU/L Alkaline Phosphatase (42-121) IU/L Total Protein (6.7-8.2) g/dL Albumin (3.2-5.5) g/dL Globulin (2.1-4.2) g/dL Albumin/Globulin Ratio (1.0-2.2) Assessment/Plan - Problem List (1) Closed right hip fracture Impression: She may be weight bearing as tolerated. Hct OK today. Continue to mobilize and placement is in progress. Qualifiers: Encounter type: initial encounter Qualified Code(s): S72.001A - Fracture of unspecified part of neck of right femur, initial encounter for closed fracture
[2018-06-05] MEDS: QUEtiapine 25 MG TABLET PO PRN (19:15)
[2018-06-05] MEDS ORDERED: MAGNESIUM HYDROXIDE 2,400 MG/30 ML UDC PO SCH (20:46)
[2018-06-06] MEDS: SODIUM CHLORIDE FLUSH 0.9% 10 ML SYRINGE IVP SCH ×3 (03:08→16:22)
[2018-06-06 05:19] LABS: BASOPHILS % (AUTO) 0.5 %; EOSINOPHILS # (AUTO) 0.3 10^3/uL (0.0-0.7); EOSINOPHILS % (AUTO) 3.7 %; HGB - HEMOGLOBIN 10.2 g/dL (12.0-16.0); LYMPHOCYTES # (AUTO) 0.7 10^3/uL (1.5-3.5); LYMPHOCYTES % (AUTO) 9.8 %; MEAN CORPUSCULAR HEMOGLOBIN 34.5 pg (27.0-31.0); MEAN CORPUSCULAR HGB CONC 34.8 g/dL (32.0-36.0); MEAN PLATELET VOLUME 7.5 fL (7.9-10.8); MONOCYTES # (AUTO) 0.8 10^3/uL (0.0-1.0); MONOCYTES % (AUTO) 10.9 %; NEUTROPHILS # (AUTO) 5.5 10^3/uL (1.5-6.6); NEUTROPHILS % (AUTO) 75.1 %; PLT - PLATELET COUNT 177 10^3/uL (130-450); RED BLOOD COUNT 2.95 10^6/uL (4.20-5.40); RED CELL DISTRIBUTION WIDTH 13.4 % (12.0-15.0); WHITE BLOOD COUNT 7.4 x10^3/uL (4.8-10.8)
[2018-06-06 05:25] LABS: ALBUMIN 2.6 g/dL (3.2-5.5); ALBUMIN/GLOBULIN RATIO 0.8 (1.0-2.2); BILIRUBIN,TOTAL 0.7 mg/dL (0.2-1.0); CALCIUM 8.3 mg/dL (8.5-10.3); CREATININE 0.6 mg/dL (0.4-1.0); TOTAL PROTEIN 5.9 g/dL (6.7-8.2)
[2018-06-06] MEDS: LEVOTHYROXINE 25 MCG TABLET PO SCH (06:01)
[2018-06-06] MEDS: PANTOPRAZOLE 40 MG TABLET PO SCH ×2 (06:01→16:22)
[2018-06-06] MEDS: SODIUM CHLORIDE FLUSH 0.9% 10 ML SYRINGE IVP PRN (06:06)
[2018-06-06] MEDS: KETOROLAC 15 MG/ML VIAL IVP PRN (06:06)
[2018-06-06] MEDS: SENNA 8.6 MG TABLET PO SCH (09:05)
[2018-06-06] MEDS: CARBIDOPA/LEVODOPA 25 MG/100 MG TABLET PO SCH ×4 (09:05→20:38)
[2018-06-06] MEDS: DOCUSATE SODIUM 250 MG CAPSULE PO SCH (09:07)
[2018-06-06] MEDS: POLYETHYLENE GLYCOL 3350 17 GM PACKET PO SCH (09:15)
[2018-06-06] MEDS ORDERED: ONDANSETRON 4 MG/2 ML VIAL IVP ONE (10:45)
[2018-06-06] MEDS ORDERED: ceFAZolin 1 GM VIAL IV ONE (10:45)
[2018-06-06] MEDS ORDERED: LIDOCAINE-MPF 2% 5 ML VIAL IM ONE (10:45)
[2018-06-06] MEDS ORDERED: ePHEDrine 50 MG/ML VIAL IVP ONE (10:45)
[2018-06-06] MEDS ORDERED: NEOSTIGMINE 1 MG/1 ML 10 ML MDV IVP ONE (10:45)
[2018-06-06] MEDS ORDERED: fentaNYL 100 MCG/2 ML VIAL IVP ONE (10:45)
[2018-06-06] MEDS ORDERED: PROPOFOL 200 MG/20 ML VIAL IVP ONE (10:45)
[2018-06-06] MEDS ORDERED: DEXAMETHASONE 4 MG/ML VIAL IVP ONE (10:45)
[2018-06-06] MEDS ORDERED: TRANEXAMIC ACID 1,000 MG/10 ML VIAL IV ONE (10:45)
[2018-06-06] MEDS ORDERED: GLYCOPYRROLATE 1 MG/5 ML VIAL IVP ONE (10:45)
[2018-06-06] MEDS ORDERED: KETAMINE 500 MG/10 ML VIAL IVP ONE (10:45)
[2018-06-06] MEDS: ACETAMINOPHEN 325 MG TABLET PO PRN ×2 (11:13→16:22)
--- NOTE | 2018-06-06 12:21 | PROVIDER PROGRESS NOTE ---
Subjective - Prog Note Date Prog Note Date: 06/06/18 - Subjective Pt reports feeling: Improved Subjective: pt's behaviour is better today, more oriented. Pt's opiates are hold now. Pt denies fever, chill, CP, SOB Current Medications - Current Medications Current Medications: Active Medications Acetaminophen (Tylenol) 650 mg PO Q4HR PRN PRN Reason: Pain or Fever > 38C (100.4F) Last Admin: 06/06/18 11:13 Dose: 650 mg Carbidopa/Levodopa (Sinemet 25 Mg/100 Mg) 2 tab PO QID [facility] Last Admin: 06/06/18 12:50 Dose: 2 tab Cyclobenzaprine HCl (Flexeril) 10 mg PO TID PRN PRN Reason: Spasms Last Admin: 06/05/18 17:35 Dose: 10 mg Docusate Sodium (Colace 250mg Capsule) 250 mg PO DAILY [facility] Last Admin: 06/06/18 09:07 Dose: Not Given Ketorolac Tromethamine (Toradol Inj (15mg)) 15 mg IVP Q6HR PRN PRN Reason: PAIN Stop: 06/09/18 15:43 Last Admin: 06/06/18 06:06 Dose: 15 mg Levothyroxine Sodium (Synthroid) 50 mcg PO QDAC [facility] Last Admin: 06/06/18 06:01 Dose: 50 mcg Pantoprazole Sodium (Protonix) 40 mg PO BIDAC [facility] Last Admin: 06/06/18 06:01 Dose: 40 mg Polyethylene Glycol (Miralax) 17 gm PO DAILY [facility] Last Admin: 06/06/18 09:15 Dose: 17 gm Prochlorperazine Edisylate (Compazine Inj) 10 mg IVP Q4HR PRN PRN Reason: Nausea / Vomiting Last Admin: 06/01/18 20:16 Dose: 10 mg Prochlorperazine Maleate (Compazine Supp) 25 mg IN BID PRN PRN Reason: Nausea / Vomiting Quetiapine Fumarate (Seroquel) 25 mg PO Q6H PRN PRN Reason: Agitation Last Admin: 06/05/18 19:15 Dose: 25 mg Senna (Senokot) 8.6 mg PO DAILY [facility] Last Admin: 06/06/18 09:05 Dose: 8.6 mg Sodium Chloride (Normal Saline Flush 0.9%) 10 ml IVP PRN PRN PRN Reason: NEEDED PER PROVIDER ORDERS Last Admin: 06/06/18 06:06 Dose: 10 ml Sodium Chloride (Normal Saline Flush 0.9%) 10 ml IVP 0100,0900,1700 ANSHUL Last Admin: 06/06/18 09:06 Dose: 10 ml Carbidopa/Levodopa 25/100 [Sinemet 25 mg/100 mg] 2 each PO 0800,1200,1700 Dexlansoprazole [Dexilant] 60 mg PO QDAC 06/01/18 Furosemide [Lasix] 40 mg PO DAILY 06/01/18 Levothyroxine [Synthroid] 25 mcg PO QDAC 06/01/18 Lorazepam [Ativan] 1 mg PO BID PRN 06/01/18 amLODIPine [Norvasc] 5 mg PO BID 06/01/18 Metoprolol Tartrate 50 mg PO BID 06/02/18 Potassium Chloride 40 meq PO DAILY 06/02/18 Trazodone HCl 50 mg PO QPM PRN 06/02/18 Objective - Vital Signs/Intake & Output Reviewed Vital Signs: Yes Vital Signs: Vital Signs x48h Temp Pulse Resp BP Pulse Ox 06/06/18 10:20 37.6 C H 87 18 116/58 L 87 L 06/06/18 05:51 36.7 C 90 18 132/50 H 95 Intake & Output: Intake & Output 06/03/18 06/04/18 06/05/18 06/06/18 23:59 23:59 23:59 23:59 Intake Total 1714 2230 3150 350 Output Total 5200 2600 3300 200 Balance -3486 -370 -150 150 - Objective General Appearance: positive: No acute distress, Alert. negative: Lethargic Eyes Bilateral: positive: Normal inspection, PERRL ENT: positive: ENT inspection nml, Pharynx nml, No signs of dehydration. negative: Purulent nasal drainage, Pharyngeal erythema, Oral lesions Neck: positive: Nml inspection, Thyroid nml, No JVD, Trachea midline. negative : Thyromegaly, Lymphadenopathy (R), Lymphadenopathy (L), Stiff neck, Swelling/ bruising, Tracheal deviation Respiratory: positive: Chest non-tender, No respiratory distress, Breath sounds nml. negative: Wheezes, Rales, Rhonchi Cardiovascular: positive: Regular rate & rhythm, No murmur, No gallop. negative : Irregularly irregular, Extrasystoles, Tachycardia, Bradycardia, JVD present, Systolic murmur, Diastolic murmur Peripheral Pulses: 2+ Radial (R), 2+ Radial (L), 2+ Dorsalis pedis (R), 2+ Dorsalis pedis (L) Abdomen: positive: Non-tender, No organomegaly, Nml bowel sounds, No distention. negative: Tenderness, Guarding, Rebound Back: positive: Nml inspection. negative: CVA tenderness (R), CVA tenderness (L ) Skin: positive: Color nml, No rash, Warm, Dry. negative: Cyanosis, Diaphoresis , Pallor, Skin rash Extremities: positive: Non-tender, Nml appearance. negative: Calf tenderness, Joint swelling, Carol's sign/cords Neurologic/Psychiatric: positive: Sensation nml. negative: Weakness, Sensory loss, Facial droop, Slurred/abnml speech, Depressed mood/affect - Lab Results Fish Bones: 06/06/18 04:55 06/06/18 04:55 Other Labs: Lab Results x24hrs 06/06/18 06/06/18 Range/Units 04:55 04:55 WBC 7.4 (4.8-10.8) x10^3/uL RBC 2.95 L (4.20-5.40) 10^6/uL Hgb 10.2 L (12.0-16.0) g/dL Hct 29.2 L (37.0-47.0) % MCV 99.0 (81.0-99.0) fL MCH 34.5 H (27.0-31.0) pg MCHC 34.8 (32.0-36.0) g/dL RDW 13.4 (12.0-15.0) % Plt Count 177 (130-450) 10^3/uL MPV 7.5 L (7.9-10.8) fL Neut # (Auto) 5.5 (1.5-6.6) 10^3/uL Lymph # (Auto) 0.7 L (1.5-3.5) 10^3/uL [place] # (Auto) 0.8 (0.0-1.0) 10^3/uL Eos # (Auto) 0.3 (0.0-0.7) 10^3/uL Baso # (Auto) 0.0 (0.0-0.1) 10^3/uL Absolute Nucleated RBC 0.00 x10^3/uL Nucleated RBC % 0.0 /100WBC Sodium 140 (135-145) mmol/L Potassium 3.7 (3.5-5.0) mmol/L Chloride 105 (101-111) mmol/L Carbon Dioxide 27 (21-32) mmol/L Anion Gap 8.0 (6-13) BUN 16 (6-20) mg/dL Creatinine 0.6 (0.4-1.0) mg/dL Estimated GFR (MDRD) 95 (>89) Glucose 167 H (70-100) mg/dL Calcium 8.3 L (8.5-10.3) mg/dL Total Bilirubin 0.7 (0.2-1.0) mg/dL AST 49 H (10-42) IU/L ALT 85 H (10-60) IU/L Alkaline Phosphatase 91 (42-121) IU/L Total Protein 5.9 L (6.7-8.2) g/dL Albumin 2.6 L (3.2-5.5) g/dL Globulin 3.3 (2.1-4.2) g/dL Albumin/Globulin Ratio 0.8 L (1.0-2.2) ABX Reporting Has patient been on IV antibiotics over the past 48 hours?: No Assessment/Plan - Problem List (1) Closed right hip fracture Impression: Impression: 06/06 status post day 2 from procedure. pt is more oriented continue PT/OT continue hole opiates, pain control with Toradol and Tylenol plan to SNF tomorrow 06/05 continue PT/OT pain control. Per pt's daughter stated pt did not have any problem with Morphine but pt presented confused when pt was given Morphine by nurse on last night. hold Morphine order Toradol, and Tylenol 06/04 pt will have surgery today, will follow up will have PT/OT pain control The patient was ambulating and lost her balance while under the care of her daughter. Melodie, the patient's daughter, believes that her mother was conscious throughout the whole process. Once in the ED imaging confirmed a fractured right femur. Dr. Chowdhury was contacted and will plan for surgery. The hip appears minimally swollen with no open areas of injury. The patient and her daughter do not believe that she may have hit her head during the fall and there are no other obvious areas of injury. Plan: Treat pain, and monitor. (2) Abnormal LFTs (liver function tests) Impression: stable /4 resolved as pt's baseline continue daily lab monitor The patient had a profound increase in her LFTs including; AST/ALT from 15/<10 upon admission, now at 845/78 and today these values are improved to 206/43. She was found to have normal INR/PTT at 1.0/11.6, an elevated LDH of 713, elevated GGT of 120, an elevated alk phos of 136 up to 157 today, normal ammonia of 23.9, normal lipase at 38, normal hgA1C of 5.6%, and an elevated fasting blood glucose of 129 down to 109 this morning. Her planned right hip repair has been on hold. An abdominal/pelvis CT with contrast was ordered and final results show a dilated common bile duct which could be from a previous obstruction, ampullary dysfunction or acute obstruction. The patient does not have abdominal pain today. 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 Other contributing factors is that the patient's TSH was grossly elevated at >15 , she is prescribed a dopamine agonist. As per her daughter, she does not believe that she has been taking her medications reliably and/or as prescribed. Her BNP was elevated so these abnormalities could be from hepatic congestion ( heart failure). Today on exam the patient's daughter asked about the oxycodone that caused her mother to become profoundly confused may have related to this liver problem. There remains to be no clear etiology, so I have ordered an abdominal ultrasound as a follow up to the CT. The patient is medically cleared as these values are improved and she no longer has abdominal pain. Plan: Continue to monitor and treat pain. Follow labs and await final US results. (3) Fall Impression: fall precaution The primary reason for the patient re-locating to [facility] from [place] as she was falling more frequently which was likely due to the progression of her Parkinson's disease. Plan: Bed rest, await surgery to repair her right hip in the AM, then PT/OT evaluation and post-op care. (4) Parkinson's disease Impression: continue Carbidopa/levodopa The patient has had this for the past several years and is prescribed Carbidopa/ levodopa at home, and this continues here. She consequently has become progressively weak, and this has been getting worse as per her daughter for at least the past year. She has baseline tremors. It is unclear whether the patient has been taking this as prescribed at home. Today, the patient requested that her dose be doubled as this was how she was supposed to take them. Plan: Continue to monitor mental status. (5) GERD (gastroesophageal reflux disease) Impression: The patient has a history of this and is prescribed Dexilant at home. She continues on IV Protonix while in the hospital. Plan: continue to monitor and treat nausea. (6) Hypothyroidism Impression: 06/05 TSH is high, pt's Levothyoxine increase to 50 mcg from 25 mcg The patient has a history of this and is prescribed Synthroid at home, which continues here. A TSH was checked and is elevated at greater than 15, so I have prescribed this in an IV for at 50mcg daily until after her surgery. She should be continued at a higher dose than she reported upon admission, although there may be some discrepancy as to her compliance. Plan: Continue medication. (7) Hypertension Impression: The patient is prescribed lasix, norvasc and metoprolol at home and these are now on hold as she is pre-op. Plan: Continue to hold home meds, IVFs, and monitor blood pressures. (8) Nausea & vomiting Impression: The patient is found to be very nauseous and this continued after arriving on the nursing floor. She has a history of GERD. She can have her usual lorazepam , zofran and we will continue to treat her pain cause by her acute right femur fracture. Plan: Continue to manage symptoms. (9) Altered mental status Impression: 06/06 pt is more oriented. continue hold opiates. neuro check 06/05 pt is confused today morning. hold Morphine, which may cause pt's confusion , per pt's history and family reports neuro check, continue closely monitor and support 06/04 pt has still some confusion but improved from previous closely monitor, continue to support The patient required bilateral wrist restraints on her first night of stay due to agitation and the likelihood of removing IV/morocho. Today, her AMS is nearly resolved and she can converse well during her exam. She has not needed restraints today. Plan: Continue to monitor. Qualifiers: Encounter type: initial encounter Qualified Code(s): S72.001A - Fracture of unspecified part of neck of right femur, initial encounter for closed fracture
[2018-06-06] MEDS ORDERED: GLYCERIN ADULT SUPP PR ONE (16:25)
--- NOTE | 2018-06-06 18:38 | PROVIDER PROGRESS NOTE ---
Subjective - Prog Note Date Prog Note Date: 06/06/18 Prog Note Time: 06:45 - Subjective Pt reports feeling: Improved (Not as confused as yesterday) Objective - Vital Signs/Intake & Output Vital Signs: Vital Signs x48h Temp Pulse Resp BP Pulse Ox 06/06/18 16:00 36.6 C 86 18 117/76 97 Intake & Output: Intake & Output 06/03/18 06/04/18 06/05/18 06/06/18 23:59 23:59 23:59 23:59 Intake Total 1714 2230 3150 900 Output Total 5200 2600 3300 650 Balance -3486 -370 -150 250 - Objective Extremities: positive: Other (Dressing dry and intact. Limb lengths clinically equal. Has not continued to destroy hip abduction pillow.) Neurologic/Psychiatric: positive: Disoriented to person - Lab Results Fish Bones: 06/06/18 04:55 06/06/18 04:55 Other Labs: Lab Results x24hrs 06/06/18 06/06/18 Range/Units 04:55 04:55 WBC 7.4 (4.8-10.8) x10^3/uL RBC 2.95 L (4.20-5.40) 10^6/uL Hgb 10.2 L (12.0-16.0) g/dL Hct 29.2 L (37.0-47.0) % MCV 99.0 (81.0-99.0) fL MCH 34.5 H (27.0-31.0) pg MCHC 34.8 (32.0-36.0) g/dL RDW 13.4 (12.0-15.0) % Plt Count 177 (130-450) 10^3/uL MPV 7.5 L (7.9-10.8) fL Neut # (Auto) 5.5 (1.5-6.6) 10^3/uL Lymph # (Auto) 0.7 L (1.5-3.5) 10^3/uL [place] # (Auto) 0.8 (0.0-1.0) 10^3/uL Eos # (Auto) 0.3 (0.0-0.7) 10^3/uL Baso # (Auto) 0.0 (0.0-0.1) 10^3/uL Absolute Nucleated RBC 0.00 x10^3/uL Nucleated RBC % 0.0 /100WBC Sodium 140 (135-145) mmol/L Potassium 3.7 (3.5-5.0) mmol/L Chloride 105 (101-111) mmol/L Carbon Dioxide 27 (21-32) mmol/L Anion Gap 8.0 (6-13) BUN 16 (6-20) mg/dL Creatinine 0.6 (0.4-1.0) mg/dL Estimated GFR (MDRD) 95 (>89) Glucose 167 H (70-100) mg/dL Calcium 8.3 L (8.5-10.3) mg/dL Total Bilirubin 0.7 (0.2-1.0) mg/dL AST 49 H (10-42) IU/L ALT 85 H (10-60) IU/L Alkaline Phosphatase 91 (42-121) IU/L Total Protein 5.9 L (6.7-8.2) g/dL Albumin 2.6 L (3.2-5.5) g/dL Globulin 3.3 (2.1-4.2) g/dL Albumin/Globulin Ratio 0.8 L (1.0-2.2) Assessment/Plan - Problem List (1) Closed right hip fracture Impression: Will continue to try to mobilize. Confusion is better today. Qualifiers: Encounter type: initial encounter Qualified Code(s): S72.001A - Fracture of unspecified part of neck of right femur, initial encounter for closed fracture
[2018-06-06] MEDS ORDERED: MAGNESIUM CITRATE 296 ML BOTTLE PO ONE (19:47)
--- NOTE | 2018-06-06 21:14 | XRAY Report ---
Reason: post op Procedure Date: 06/06/2018 Accession Number: [id number] / [id number] Procedure: XR - Hip w/Pelvis 2-3V RT CPT Code: FULL RESULT: EXAM: RIGHT HIP AND PELVIS RADIOGRAPHY. EXAM DATE: 06/06/2018 08:24 PM. HISTORY: Postoperative. COMPARISONS: Hip with pelvis 2-3 view right 06/01/2018. TECHNIQUE: 1 view of the pelvis and 1 view of the hip. FINDINGS: Bones: No unexpected bony abnormality. Joints: Immediately status post right total hip replacement. Bones in anatomic alignment. Mild degenerative changes left hip. Moderate to marked degenerative disk disease L4-L5 and L5-S1. Soft Tissues: Air, edema and skin brandan at the operative site. No unexpected radiopaque foreign body. IMPRESSION: Unremarkable postoperative exam. RADIA
[2018-06-07] MEDS: ACETAMINOPHEN 325 MG TABLET PO PRN (01:04)
[2018-06-07] MEDS: SODIUM CHLORIDE FLUSH 0.9% 10 ML SYRINGE IVP SCH ×2 (01:04→08:11)
[2018-06-07 05:12] LABS: BASOPHILS # (AUTO) 0.1 10^3/uL (0.0-0.1); EOSINOPHILS # (AUTO) 0.4 10^3/uL (0.0-0.7); EOSINOPHILS % (AUTO) 5.6 %; HGB - HEMOGLOBIN 10.5 g/dL (12.0-16.0); MEAN CORPUSCULAR HEMOGLOBIN 34.5 pg (27.0-31.0); MEAN CORPUSCULAR VOLUME 98.7 fL (81.0-99.0); MEAN PLATELET VOLUME 7.2 fL (7.9-10.8); MONOCYTES # (AUTO) 0.8 10^3/uL (0.0-1.0); NEUTROPHILS # (AUTO) 4.7 10^3/uL (1.5-6.6); NEUTROPHILS % (AUTO) 68.4 %; PLT - PLATELET COUNT 199 10^3/uL (130-450); RED BLOOD COUNT 3.05 10^6/uL (4.20-5.40); RED CELL DISTRIBUTION WIDTH 13.4 % (12.0-15.0); WHITE BLOOD COUNT 6.9 x10^3/uL (4.8-10.8)
[2018-06-07 05:19] LABS: ALBUMIN 2.7 g/dL (3.2-5.5); ALBUMIN/GLOBULIN RATIO 0.8 (1.0-2.2); BILIRUBIN,TOTAL 0.7 mg/dL (0.2-1.0); CALCIUM 8.2 mg/dL (8.5-10.3); CREATININE 0.6 mg/dL (0.4-1.0)
[2018-06-07] MEDS: LEVOTHYROXINE 25 MCG TABLET PO SCH (07:51)
[2018-06-07] MEDS: PANTOPRAZOLE 40 MG TABLET PO SCH (07:51)
[2018-06-07] MEDS: CARBIDOPA/LEVODOPA 25 MG/100 MG TABLET PO SCH ×2 (08:10→13:14)
[2018-06-07] MEDS: DOCUSATE SODIUM 250 MG CAPSULE PO SCH (08:10)
[2018-06-07] MEDS: KETOROLAC 15 MG/ML VIAL IVP PRN (08:11)
[2018-06-07] MEDS: POLYETHYLENE GLYCOL 3350 17 GM PACKET PO SCH (08:11)
[2018-06-07] MEDS: SENNA 8.6 MG TABLET PO SCH (08:11)
--- NOTE | 2018-06-07 12:36 | Discharge Plan ---
"Discharge Plan [facility] / [facility] - Discharge Plan And Transition Orders Disposition: 03 SNF DC/Xfer Condition: Poor Allergies and Adverse Reactions: Allergies Allergy/AdvReac Type Severity Reaction Status Date / Time hydromorphone [From Dilaudid] Allergy Hallucinati Verified 06/01/18 19:22 ons meperidine [From Demerol] AdvReac Hallucinati Verified 06/03/18 15:31 ons oxycodone AdvReac Hallucinati Verified 06/03/18 15:31 ons - SNF / SKILLED NURSING Transition Orders Admit to (Facility): [facility] Under the care of (Name): pt's Dr. Chetna Pacheco Discharge Diagnosis: Status post of right hip fracture, fall, parkinson's disease, hypothyroidism, HTN Medicare Certification Statement: I certify that Post Hospital [facility] care is medically necessary on a continuing basis for any of the conditions for which she/he is receiving care during hospitalization. Notify PCP of admission and forward orders to primary provider for signature. Weight on admission and: Daily Call PCP immediately if weight increases by: 2 kg Other Notification Orders: Call PCP immediately if patient develops dyspnea, chest pain/tightness or edema. House Bowel Program: Yes Additional Bowel Program Orders: If no BM after 2 days, nurse may give M.O.M. 30ml PO PRN and/or ducolax Supp 1 [place] and/or ASHOK 250mg P.O., and/or senna 1-2 tabs PO. On day 3 nurse may give repeat above order until residents constipation is resolved. Annual Influenza Vaccine (between Jun 01 and December 29): Yes Two-step PPD per [facility] [id number] or approved exception documents: Yes Treatments & Other Orders: may follow up Dr. Chetna Pacheco at arrival to [facility] Oxygen Orders: PRN Lab Tests or X-ray Orders: May followup PCP Orthopedic Orders: may follow up Dr. Cheri Chowdhury in two weeks at her orthopetics office Medication Orders: PLEASE REFER TO THE DISCHARGE MEDICATION LIST. Insulin Orders?: No If Yes, Add SNF - Insulin Orders Section (see tipsheet): - Medications New Prescriptions: Acetaminophen [Tylenol] 650 mg PO Q4HR PRN #60 tablet PRN Reason: Pain Or Fever > 38c (100.4f) Aspirin 325 mg PO BID #20 tablet Levothyroxine [Synthroid] 50 mcg PO QDAC #10 tablet - Diet Type: Geriatric Texture: Regular Liquids: Thin May have monthly special meal: Yes - Therapies | Activity Therapy: Evaluation | Treat if indicated: PT, OT Rehabilitation Potential: Maximize functional status Activity: Activity as Tolerated Additional Instructions: may follow up PCP at arrival to [facility], may follow up Dr. Cheri Chowdhury in two weeks at her orthopedics office"
[2018-06-07] MEDS ORDERED: ENOXAPARIN 40 MG/0.4 ML SYRINGE SUBQ SCH (13:00)
[2018-06-07 14:15] VITALS: BP 123/66
--- NOTE | 2018-06-07 18:37 | DISCHARGE SUMMARY ---
Discharge Summary Discharge Date: 06/07/18 Discharging Provider: FRIED Primary Care Provider: Dr. Perry Condition at Discharge: Poor Discharge Disposition: 03 SNF DC/Xfer Discharge Facility Name: [facility] - DIAGNOSES Admission Diagnoses: (1) Preop cardiovascular exam (2) Closed right hip fracture (3) Fall (4) Parkinson's disease (5) GERD (gastroesophageal reflux disease) (6) Hypothyroidism (7) Hypertension (8) Nausea & vomiting Discharge Diagnoses with Status of Each Condition: (1) Closed right hip fracture pt had right hip fracture repaired by Dr. Cheri Chowdhury. PT/OT evaluation and treatment to pt. Pt is recommended to SNF for continue training Aspirin 325 mg bid for DVT prophylaxis (2) Abnormal LFTs (liver function tests) resolved as the baseline (3) Fall SNF for continue training (4) Parkinson's disease stable, continue home regimen (5) GERD (gastroesophageal reflux disease) stable (6) Hypothyroidism TSH high, Levothyroxine is up to 50 mcg daily from previous 25 mcg daily (7) Hypertension stable (8) Nausea & vomiting resolved (9) Altered mental status resolved as her baseline. Pt is very sensitive to any opiates, which make her confusion. - HPI History of Present Illness: refer from [facility] HPI as the following: Melodie Cooney is an 82-year old female with a past medical history of hypertension, hypothyroidism, Parkinson's disease, GERD, atrial fibrillation, thymus cancer-status post thymus removal, and baseline tremors. Her daughter, Melodie is at the bedside and helped with this H & P as the patient has a hearing impairment and was unsettled with being in pain/uncontrolled nausea. The patient has been living with her daughter for the past 2 weeks and is in the process of selling her home in [place] due to increased falls at home. Since arriving at her daughter's home, she will not allow her daughter to help her manage her meds. The patient is reported as being resistant to assistance both physically and mentally. Her daughter has been helping her around their mobile home, and was thought to be managing the 2-step landing right out side the front door. The patient ambulated un-assisted out the front door, apparently fell off the 2 front steps, and landed in the gravel on her right side. There were no objects in the way and the patient states that her Parkinson's disease causes her profound bilateral leg weakness. The patient's daughter predicts that her mother laid there about 1 full minute before being discovered by her daughter. Melodie, the patient's daughter attempted to assist her mother to her feet, but the patient complained of very sharp pain in the right hip and groin and approved of her only calling "the police" so they could help. EMS arrived, and brought her to the ED. Imaging confirmed a fracture of the neck of the right femur. Labs show a reduced creatinine of 1.2, a GFR of 43, an elevated glucose of 151, a negative troponin, with no other lab abnormalities. The patient was afebrile, slightly hypotensive with a blood pressure of 116/56, and a heart rate in the 60-70's. Dr. Chowdhury-orthosurgery was consulted who will plan for surgery in the AM. She will be medically managed by Hospitalist. - CONSULTS | PROCEDURES Consultations: Dr. Cheri Chowdhury Procedures: right hip repair - ALLERGIES Allergies/Adverse Reactions: Allergies Allergy/AdvReac Type Severity Reaction Status Date / Time hydromorphone [From Dilaudid] Allergy Hallucinati Verified 06/01/18 19:22 ons meperidine [From Demerol] AdvReac Hallucinati Verified 06/03/18 15:31 ons oxycodone AdvReac Hallucinati Verified 06/03/18 15:31 ons - MEDICATIONS Home Medications: Ambulatory Orders Medication Instructions Recorded Confirmed Carbidopa/Levodopa 25/100 [Sinemet 2 each PO 0800,1200,1700 06/01/18 06/02/18 25 mg/100 mg] Dexlansoprazole [Dexilant] 60 mg PO QDAC 06/01/18 06/02/18 Furosemide [Lasix] 40 mg PO DAILY 06/01/18 06/01/18 Lorazepam [Ativan] 1 mg PO BID PRN 06/01/18 06/02/18 amLODIPine [Norvasc] 5 mg PO BID 06/01/18 06/01/18 Metoprolol Tartrate 50 mg PO BID 06/02/18 06/02/18 Potassium Chloride 40 meq PO DAILY 06/02/18 06/02/18 Trazodone HCl 50 mg PO QPM PRN 06/02/18 06/02/18 Acetaminophen [Tylenol] 650 mg PO Q4HR PRN #60 tablet 06/07/18 Aspirin 325 mg PO BID #20 tablet 06/07/18 Levothyroxine [Synthroid] 50 mcg PO QDAC #10 tablet 06/07/18 - PHYSICAL EXAM AT DISCHARGE General Appearance: positive: No acute distress, Alert. negative: Lethargic Eyes Bilateral: positive: Normal inspection, PERRL, No lid inflammation, Conjunctivae nml ENT: positive: ENT inspection nml, Pharynx nml, No signs of dehydration. negative: Purulent nasal drainage, Pharyngeal erythema, Oral lesions Neck: positive: Nml inspection, Thyroid nml, No JVD, Trachea midline. negative : Thyromegaly, Lymphadenopathy (R), Lymphadenopathy (L), Stiff neck, Swelling/ bruising, Tracheal deviation Respiratory: positive: Chest non-tender, No respiratory distress, Breath sounds nml. negative: Wheezes, Rales, Rhonchi Cardiovascular: positive: Regular rate & rhythm, No murmur, No gallop. negative : Irregularly irregular, Extrasystoles, Tachycardia, Bradycardia, JVD present, Systolic murmur, Diastolic murmur Peripheral Pulses: positive: 2+ Abdomen: positive: Non-tender, No organomegaly, Nml bowel sounds, No distention. negative: Tenderness, Guarding, Rebound Back: positive: Nml inspection. negative: CVA tenderness (R), CVA tenderness (L ) Skin: positive: Color nml, No rash, Warm, Dry. negative: Cyanosis, Diaphoresis , Pallor Extremities: positive: Non-tender, Nml appearance. negative: Calf tenderness, Joint swelling, Carol's sign/cords Neurologic/Psychiatric: positive: Sensation nml. negative: Weakness, Sensory loss, Facial droop, Slurred/abnml speech, Depressed mood/affect - LABS Result Diagrams: 06/07/18 04:55 06/07/18 04:55 - FOLLOW UP Follow Up: may follow up PCP at arrival to [facility], may follow up Dr. Cheri Chowdhury in two weeks at her orthopedics office - TIME SPENT Time Spent in Discharge (Minutes): 55
--- NOTE | 2018-06-11 09:09 | CONSULTATION NOTE ---
Referring Provider Name of Referring Provider:: Hospitalist service Consult Date: 06/07/18 Chief Complaint - Chief Complaint Chief Complaint: fracture of right femoral neck History of Present Illness - Admitted From Admitted From:: Daughter's home - History of Present Illness HPI Comment/Other: 82 year old female was visiting her daughter. She lives in [place]. She had a ground level fall that resulted in a right femoral neck fracture. She has mild dementia. History - Past Medical History Cardiovascular: reports: Hypertension, Atrial fibrillation, Murmur, Arrhythmia Respiratory: reports: None Neuro: reports: Dementia, Parkinson's, Tremors Endocrine/Autoimmune: reports: HyPOthyroidism GI: reports: GERD : reports: Incontinence, Chronic bladder infection, Nocturia, Frequency HEENT: reports: Chronic vision loss, Chronic sinusitis, Chronic hearing loss Psych: reports: None Musculoskeletal: reports: Rheumatoid arthritis, Fatigue Derm: reports: None MRSA Hx?: No Other Past Medical History: thymus CA - Past Surgical History General: reports: Cholecystectomy, Appendectomy, Other /DIRECTOR IMAGING: reports: Hysterectomy, Oophrectomy HEENT: reports: Tonsil/Adenoidectomy - Family & Social History Family History: Mother: , Diabetes, Type 2, Father: , Sister: , Brother: Family History Comment/Other: The patient's father had diabetes, mother had a fractured hip and from old age. The patient had 15 siblings of which she knows of no chronic illnesses. 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 She had a back injury in her 40's and went on disability since that time. She had 3 children and one adopted child. She denies the use of current tobacco use, vivi used cigarettes from age [age]. She denies alcohol or illicit drug use. She wishes to be a FULL code. - Substance History Use: Uses substance without health or social issues: NONE Abuse: Recurrent use of substance despite neg consequences: NONE Dependence: Experiences withdrawal or developed tolerances: NONE - POLST Patient has POLST: No POLST Status: Full Code Meds/Allgy - Home Medications Home Medications: Ambulatory Orders Medication Instructions Recorded Confirmed Carbidopa/Levodopa 25/100 [Sinemet 2 each PO 0800,1200,1700 06/01/18 06/08/18 25 mg/100 mg] Dexlansoprazole [Dexilant] 60 mg PO QDAC 06/01/18 06/08/18 Furosemide [Lasix] 40 mg PO DAILY 06/01/18 06/08/18 Lorazepam [Ativan] 0.5 mg PO BID PRN 06/01/18 06/09/18 amLODIPine [Norvasc] 5 mg PO BID 06/01/18 06/08/18 Metoprolol Tartrate 50 mg PO BID 06/02/18 06/08/18 Potassium Chloride 40 meq PO DAILY 06/02/18 06/08/18 Trazodone HCl 50 mg PO QPM PRN 06/02/18 06/08/18 Acetaminophen [Tylenol] 650 mg PO Q4HR PRN #60 tablet 06/07/18 06/08/18 Aspirin 325 mg PO BID #20 tablet 06/07/18 06/08/18 Levothyroxine [Synthroid] 50 mcg PO QDAC #10 tablet 06/07/18 06/08/18 Morphine Sulfate 15 mg PO Q6HR PRN #20 tablet 06/08/18 06/08/18 Ferrous Gluconate 240 mg PO DAILY 06/09/18 06/09/18 Ibuprofen [Motrin] 400 mg PO Q6H PRN 06/09/18 06/09/18 - Allergies Allergies/Adverse Reactions: Allergies Allergy/AdvReac Type Severity Reaction Status Date / Time hydromorphone [From Dilaudid] Allergy Hallucinati Verified 06/08/18 20:59 ons meperidine [From Demerol] AdvReac Hallucinati Verified 06/08/18 20:59 ons oxycodone AdvReac Hallucinati Verified 06/08/18 20:59 ons Exam - Physical Exam General Appearance: positive: No acute distress Eyes Bilateral: positive: PERRL ENT: positive: No signs of dehydration Neck: positive: Nml inspection Respiratory: positive: Chest non-tender, No respiratory distress Peripheral Pulses: positive: 2+ Abdomen: positive: Non-tender Skin: positive: Color nml Extremities: positive: Other (Shortened right leg with internal rotation at the hip. Toes move up and down. Sensory exam normal.) Conclusion/Plan - Diagnosis Diagnosis: Displaced right femoral neck fracture - plan bipolar hemiarthroplasty when medically stabilized for surgery. The risks involved in the surgery were explained to the patient in person and her daughter by phone. The risks include bleeding infection and neurovascular damage. The post operative course was also explained including weight bearing as tolerated and physical therapy. - Lab Results Lab results reviewed: Yes Fish Bones: 06/07/18 04:55 06/07/18 04:55
== END 2018-06-07 14:34 | DRG 470 ==
LOC: ED 15:49 → MS3 17:43
PROVIDERS: ADMIT Nurse Practitioner; ATTEND Nurse Practitioner Gerontology
PROC: 0SRR0JZ Replacement of Right Hip Joint, Femoral Surface with Synthetic Substitute, Open Approach (ICD-10-PCS; principal; 2018-06-04 09:00)
DX: S72.001A Fracture of unspecified part of neck of right femur, initial encounter for closed fracture (principal); W10.9XXA Fall (on) (from) unspecified stairs and steps, initial encounter; Y92.009 Unspecified place in unspecified non-institutional (private) residence as the place of occurrence of the external cause; W10.8XXA Fall (on) (from) other stairs and steps, initial encounter; Y92.028 Other place in mobile home as the place of occurrence of the external cause; R10.11 Right upper quadrant pain; R10.12 Left upper quadrant pain; I95.9 Hypotension, unspecified; G20 Parkinson's disease; F02.80 Dementia in other diseases classified elsewhere, unspecified severity, without behavioral disturbance, psychotic disturbance, mood disturbance, and anxiety; K21.9 Gastro-esophageal reflux disease without esophagitis; E03.9 Hypothyroidism, unspecified; I10 Essential (primary) hypertension; R11.2 Nausea with vomiting, unspecified; R40.4 Transient alteration of awareness; T40.2X5A Adverse effect of other opioids, initial encounter; I48.91 Unspecified atrial fibrillation; H91.90 Unspecified hearing loss, unspecified ear; M06.9 Rheumatoid arthritis, unspecified; Z85.238 Personal history of other malignant neoplasm of thymus; Z78.1 Physical restraint status; Z91.81 History of falling; Z79.899 Other long term (current) drug therapy; Z87.891 Personal history of nicotine dependence; Z87.440 Personal history of urinary (tract) infections; Z90.49 Acquired absence of other specified parts of digestive tract
CPT/HCPCS: 36415; 74177; 76705; 80053; 81001; 81003; 82140; 82977; 83036; 83540; 83615; 83690; 83735; 83880; 84100; 84443; 84466; 84484; 85014; 85018; 85025; 85610; 85730; 86850; 86900; 86901; 87086; 93306; 96374; 96375; 99283; 99284; 99285

== ENCOUNTER 2018-06-08 09:15 | Outpatient (CLI) | payer MEDICARE, BC | END 2018-06-08 09:16 | disposition critical access hospital (66) | LOC: EMS 09:15 | PROVIDERS: ATTEND Surgery | DX: M25.551 Pain in right hip (principal) | CPT/HCPCS: A0425; A0429 ==

== ENCOUNTER 2018-06-08 09:20 | Emergency (ER) | payer MEDICARE, BC ==
[2018-06-08] MEDS ORDERED: MORPHINE 10 MG/ML VIAL IVP STA (09:34)
[2018-06-08] MEDS ORDERED: ONDANSETRON 4 MG/2 ML VIAL IVP STA (09:34)
[2018-06-08 09:49] LABS: BASOPHILS % (AUTO) 0.6 %; EOSINOPHILS # (AUTO) 0.3 10^3/uL (0.0-0.7); EOSINOPHILS % (AUTO) 3.5 %; HGB - HEMOGLOBIN 10.5 g/dL (12.0-16.0); LYMPHOCYTES # (AUTO) 0.6 10^3/uL (1.5-3.5); LYMPHOCYTES % (AUTO) 8.7 %; MEAN CORPUSCULAR HEMOGLOBIN 33.7 pg (27.0-31.0); MEAN CORPUSCULAR HGB CONC 34.2 g/dL (32.0-36.0); MEAN CORPUSCULAR VOLUME 98.4 fL (81.0-99.0); MONOCYTES # (AUTO) 0.6 10^3/uL (0.0-1.0); MONOCYTES % (AUTO) 8.6 %; NEUTROPHILS # (AUTO) 5.7 10^3/uL (1.5-6.6); NEUTROPHILS % (AUTO) 78.6 %; PLT - PLATELET COUNT 252 10^3/uL (130-450); RED BLOOD COUNT 3.11 10^6/uL (4.20-5.40); RED CELL DISTRIBUTION WIDTH 13.5 % (12.0-15.0); WHITE BLOOD COUNT 7.3 x10^3/uL (4.8-10.8)
[2018-06-08 09:59] LABS: ALBUMIN/GLOBULIN RATIO 0.9 (1.0-2.2); BILIRUBIN,TOTAL 0.8 mg/dL (0.2-1.0); CALCIUM 8.7 mg/dL (8.5-10.3); CREATININE 0.6 mg/dL (0.4-1.0); TOTAL PROTEIN 6.5 g/dL (6.7-8.2)
[2018-06-08 10:03] LABS: BILIRUBIN,URINE NEGATIVE (NEGATIVE); GLUCOSE, URINE (UA) NEGATIVE (NEGATIVE); KETONES,URINE (UA) NEGATIVE (NEGATIVE); LEUKOCYTE ESTERASE, URINE NEGATIVE (NEGATIVE); NITRITE,URINE NEGATIVE (NEGATIVE); OCCULT BLOOD,URINE NEGATIVE (NEGATIVE); PROTEIN,URINE NEGATIVE (NEGATIVE); UROBILINOGEN,URINE 0.2 (NORMAL) E.U./dL (NORMAL)
[2018-06-08 10:05] LABS: CLARITY,URINE CLEAR (CLEAR)
--- NOTE | 2018-06-08 10:21 | ED Physician Documentation ---
History of Present Illness - Stated complaint Stated Complaint: LEG PX - Chief complaint Chief Complaint: General - History obtained from History obtained from: Patient, Family - History of Present Illness Timing: Today - Additonal information Additional information: 82-year-old female with a history of Parkinson's disease avidity [place] hip was in the hospital had her hip replaced and she has transitioned to [facility] for rehabilitation. She was at [facility] this morning when she became aggressive and had yelling and hitting of the staff. She is brought to the emergency department now for evaluation. The concern of the physician at [facility] Dr. Wolfgang Machuca was that the patient may be lacking pain control. She does have sensitivities to pain medications and she has received Advil or Tylenol for pain control and this appears to be inadequate. The patient does have Parkinson's and has taken her medications. Review of Systems Constitutional: denies: Fever Eyes: denies: Decreased vision Ears: denies: Ear pain Nose: denies: Congestion Throat: denies: Sore throat Cardiac: denies: Chest pain / pressure, Palpitations Respiratory: denies: Dyspnea, Cough GI: denies: Abdominal Pain, Nausea, Vomiting : denies: Dysuria, Frequency Skin: denies: Rash Musculoskeletal: reports: Extremity pain. denies: Neck pain, Back pain Neurologic: denies: Generalized weakness, Focal weakness, Numbness PD PAST MEDICAL HISTORY - Past Medical History Cardiovascular: Hypertension, Atrial fibrillation, Murmur, Arrhythmia Respiratory: None Neuro: Dementia, Parkinson's, Tremors Endocrine/Autoimmune: HyPOthyroidism GI: GERD : Incontinence, Chronic bladder infection, Nocturia, Frequency HEENT: Chronic vision loss, Chronic sinusitis, Chronic hearing loss Psych: None Musculoskeletal: Rheumatoid arthritis, Fatigue Derm: None - Past Surgical History Past Surgical History: Yes General: Cholecystectomy, Appendectomy, 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, 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 HEENT: Tonsil/Adenoidectomy - Present Medications Home Medications: Ambulatory Orders Medication Instructions Recorded Confirmed Carbidopa/Levodopa 25/100 [Sinemet 2 each PO 0800,1200,1700 06/01/18 06/02/18 25 mg/100 mg] Dexlansoprazole [Dexilant] 60 mg PO QDAC 06/01/18 06/02/18 Furosemide [Lasix] 40 mg PO DAILY 06/01/18 06/01/18 Lorazepam [Ativan] 1 mg PO BID PRN 06/01/18 06/02/18 amLODIPine [Norvasc] 5 mg PO BID 06/01/18 06/01/18 Metoprolol Tartrate 50 mg PO BID 06/02/18 06/02/18 Potassium Chloride 40 meq PO DAILY 06/02/18 06/02/18 Trazodone HCl 50 mg PO QPM PRN 06/02/18 06/02/18 Acetaminophen [Tylenol] 650 mg PO Q4HR PRN #60 tablet 06/07/18 Aspirin 325 mg PO BID #20 tablet 06/07/18 Levothyroxine [Synthroid] 50 mcg PO QDAC #10 tablet 06/07/18 Morphine Sulfate 15 mg PO Q6HR PRN #20 tablet 06/08/18 - Allergies Allergies/Adverse Reactions: Allergies Allergy/AdvReac Type Severity Reaction Status Date / Time hydromorphone [From Dilaudid] Allergy Hallucinati Verified 06/01/18 19:22 ons meperidine [From Demerol] AdvReac Hallucinati Verified 06/03/18 15:31 ons oxycodone AdvReac Hallucinati Verified 06/03/18 15:31 ons - Social History Does the pt smoke?: No Smoking Status: Never smoker Does the pt drink ETOH?: No Does the pt have substance abuse?: No - Immunizations Immunizations are current?: Yes - POLST Patient has POLST: No POLST Status: Full Code PD ED PE NORMAL - Vitals Vital signs reviewed: Yes (hypertensive mild ) - General General: No acute distress, Well developed/nourished, Other (The patient is alert and talkative but is confused. ) - HEENT HEENT: Atraumatic, PERRL, EOMI - Neck Neck: Supple, no meningeal sign - Cardiac Cardiac: RRR, No murmur - Respiratory Respiratory: No respiratory distress, Clear bilaterally - Abdomen Abdomen: Soft, Non tender - Back Back: No CVA TTP, No spinal TTP - Derm Derm: Normal color, Warm and dry, No rash - Extremities Extremities: Other Results - Vitals Vitals: Vital Signs - 24 hr 06/08/18 06/08/18 09:23 11:03 Temperature 36.3 C L 37.1 C Heart Rate 85 86 Respiratory 18 18 Rate Blood Pressure 140/72 H 139/60 H O2 Saturation 100 97 Oxygen O2 Source Room air - Labs Labs: Laboratory Tests 06/08/18 06/08/18 06/08/18 09:40 09:40 10:01 WBC 7.3 RBC 3.11 L Hgb 10.5 L Hct 30.6 L MCV 98.4 MCH 33.7 H MCHC 34.2 RDW 13.5 Plt Count 252 MPV 7.0 L Neut # (Auto) 5.7 Lymph # (Auto) 0.6 L [place] # (Auto) 0.6 Eos # (Auto) 0.3 Baso # (Auto) 0.0 Absolute Nucleated RBC 0.00 Nucleated RBC % 0.0 Sodium 138 Potassium 3.9 Chloride 103 Carbon Dioxide 27 Anion Gap 8.0 BUN 16 Creatinine 0.6 Estimated GFR (MDRD) 95 Glucose 151 H Calcium 8.7 Total Bilirubin 0.8 AST 41 ALT 10 Alkaline Phosphatase 83 Total Protein 6.5 L Albumin 3.0 L Globulin 3.5 Albumin/Globulin Ratio 0.9 L Lipase 31 Urine Color YELLOW Urine Clarity CLEAR Urine pH 8.0 H Ur Specific [place] 1.010 Urine Protein NEGATIVE Urine Glucose (UA) NEGATIVE Urine Ketones NEGATIVE Urine Occult Blood NEGATIVE Urine Nitrite NEGATIVE Urine Bilirubin NEGATIVE Urine Urobilinogen 0.2 (NORMAL) Ur Leukocyte Esterase NEGATIVE Ur Microscopic Review NOT INDICATED Urine Culture Comments NOT INDICATED PD MEDICAL DECISION MAKING - ED course Complexity details: reviewed old records, reviewed results, re-evaluated patient , considered differential, d/w patient, d/w family ED course: 79-year-old female with a history of Parkinson's has had a recent hip replacement she has sensitivity to a number of different place pain medications. She is having excessive pain this morning not improved with use of Tylenol or Advil. She is given a dose of morphine here in the emergency department with improvement in her pain. She does not have aggressive or violent behavior in the ED. She is discharged back to [facility] with script for morphine sulfate. She has had delayed reaction to pain medications previously. - Sepsis Event Vital Signs: Vital Signs - 24 hr 06/08/18 06/08/18 09:23 11:03 Temperature 36.3 C L 37.1 C Heart Rate 85 86 Respiratory 18 18 Rate Blood Pressure 140/72 H 139/60 H O2 Saturation 100 97 Oxygen O2 Source Room air Departure - Departure Disposition: 01 Home, Self Care Clinical Impression: Post-operative pain Closed right hip fracture Qualifiers: Encounter type: subsequent encounter Fracture healing: with routine healing Qualified Code(s): S72.001D - Fracture of unspecified part of neck of right femur, subsequent encounter for closed fracture with routine healing Altered mental status Qualifiers: Altered mental status type: transient alteration of awareness Qualified Code(s) : R40.4 - Transient alteration of awareness Condition: Stable Instructions: ED Post Op Pain Follow-Up: [facility] [Provider Group] Prescriptions: Morphine Sulfate 15 mg PO Q6HR PRN #20 tablet PRN Reason: Pain Discharge Date/Time: 06/08/18 11:56
[2018-06-08] MEDS ORDERED: MORPHINE IR 15 MG TABLET PO STA (10:55)
[2018-06-08 11:06] VITALS: BP 139/60
== END 2018-06-08 11:56 | disposition home or self-care (01) ==
LOC: EDUNIT# → ED 09:20
DX: G89.18 Other acute postprocedural pain (principal); S72.001A Fracture of unspecified part of neck of right femur, initial encounter for closed fracture; R40.4 Transient alteration of awareness; I10 Essential (primary) hypertension; G20 Parkinson's disease
CPT/HCPCS: 36415; 80053; 81001; 81003; 83690; 85025; 87086; 99283

== ENCOUNTER 2018-06-08 20:39 | Outpatient (CLI) | payer MEDICARE, BC | END 2018-06-08 20:40 | disposition critical access hospital (66) | LOC: EMS 20:39 | PROVIDERS: ATTEND Surgery | DX: R46.89 Other symptoms and signs involving appearance and behavior (principal) | CPT/HCPCS: A0425; A0429 ==

== ENCOUNTER 2018-06-08 20:44 | Inpatient (IN) | payer MEDICARE, BC ==
--- NOTE | 2018-06-08 20:56 | ED Physician Documentation ---
History of Present Illness - Stated complaint Stated Complaint: COMBATIVE - History obtained from History obtained from: Family, EMS - Additonal information Additional information: 82-year-old female was brought into the emergency department for confusion agitation and being combative. The patient recently sustained a right hip fracture and had a surgical repair. The patient currently is in rehab and was started on morphine today for pain control. Since then the patient has deteriorated and become significantly confused and altered. The patient does have a history of bad reactions to narcotics. The history was obtained from the intermediate records and from the patient's daughter. No history was obtained from the patient secondary to her acute state Review of Systems Unable to obtain: Confused PD PAST MEDICAL HISTORY - Past Medical History Cardiovascular: Hypertension, Atrial fibrillation, Murmur, Arrhythmia Respiratory: None Neuro: Dementia, Parkinson's, Tremors Endocrine/Autoimmune: HyPOthyroidism GI: GERD : Incontinence, Chronic bladder infection, Nocturia, Frequency HEENT: Chronic vision loss, Chronic sinusitis, Chronic hearing loss Psych: None Musculoskeletal: Rheumatoid arthritis, Fatigue Derm: None - Past Surgical History Past Surgical History: Yes General: Cholecystectomy, Appendectomy, 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, 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 HEENT: Tonsil/Adenoidectomy - Present Medications Home Medications: Ambulatory Orders Medication Instructions Recorded Confirmed Carbidopa/Levodopa 25/100 [Sinemet 2 each PO 0800,1200,1700 06/01/18 06/08/18 25 mg/100 mg] Dexlansoprazole [Dexilant] 60 mg PO QDAC 06/01/18 06/08/18 Furosemide [Lasix] 40 mg PO DAILY 06/01/18 06/08/18 Lorazepam [Ativan] 1 mg PO BID PRN 06/01/18 06/08/18 amLODIPine [Norvasc] 5 mg PO BID 06/01/18 06/08/18 Metoprolol Tartrate 50 mg PO BID 06/02/18 06/08/18 Potassium Chloride 40 meq PO DAILY 06/02/18 06/08/18 Trazodone HCl 50 mg PO QPM PRN 06/02/18 06/08/18 Acetaminophen [Tylenol] 650 mg PO Q4HR PRN #60 tablet 06/07/18 06/08/18 Aspirin 325 mg PO BID #20 tablet 06/07/18 06/08/18 Levothyroxine [Synthroid] 50 mcg PO QDAC #10 tablet 06/07/18 06/08/18 Morphine Sulfate 15 mg PO Q6HR PRN #20 tablet 06/08/18 06/08/18 - Allergies Allergies/Adverse Reactions: Allergies Allergy/AdvReac Type Severity Reaction Status Date / Time hydromorphone [From Dilaudid] Allergy Hallucinati Verified 06/08/18 20:59 ons meperidine [From Demerol] AdvReac Hallucinati Verified 06/08/18 20:59 ons oxycodone AdvReac Hallucinati Verified 06/08/18 20:59 ons - Social History Does the pt smoke?: No Smoking Status: Never smoker Does the pt drink ETOH?: No Does the pt have substance abuse?: No - Immunizations Immunizations are current?: Yes - POLST Patient has POLST: No POLST Status: Full Code PD ED PE NORMAL - General General: Other (The patient is alert, the patient's significant a confused and agitated and saying very inappropriate things to staff. There is no obvious signs of trauma) - HEENT HEENT: Atraumatic, PERRL, EOMI, Ears normal - Cardiac Cardiac: Other (Irregular rhythm) - Respiratory Respiratory: No respiratory distress, Clear bilaterally - Abdomen Abdomen: Soft, Non tender - Extremities Extremities: No edema - Neuro Neuro: Other (The patient's alert but significantly confused. The patient is moving all 4 extremities and has no gross focal neurologic deficit) - Psych Psych: Other (Agitation) Results - Vitals Vitals: Vital Signs - 24 hr 06/08/18 06/08/18 06/08/18 20:47 22:04 22:07 Temperature 36.4 C L Heart Rate 87 80 Respiratory 22 23 Rate Blood Pressure 122/53 L 118/52 L O2 Saturation 99 99 Oxygen O2 Source Room air - Labs Labs: Laboratory Tests 06/08/18 06/08/18 06/08/18 21:40 21:40 21:40 WBC 7.9 RBC 2.85 L Hgb 10.1 L Hct 28.2 L MCV 99.3 H MCH 35.5 H MCHC 35.8 RDW 13.0 Plt Count 279 MPV 7.4 L Neut # (Auto) 6.0 Lymph # (Auto) 0.7 L Kerr # (Auto) 0.7 Eos # (Auto) 0.4 Baso # (Auto) 0.0 Absolute Nucleated RBC 0.00 Nucleated RBC % 0.1 Sodium 137 Potassium 4.1 Chloride 100 L Carbon Dioxide 29 Anion Gap 8.0 BUN 20 Creatinine 0.9 Estimated GFR (MDRD) 60 L Glucose 138 H Calcium 9.0 Total Bilirubin 0.9 AST 49 H ALT 14 Alkaline Phosphatase 115 CK-MB (CK-2) 10.1 H Troponin I < 0.04 Total Protein 6.8 Albumin 3.1 L Globulin 3.7 Albumin/Globulin Ratio 0.8 L Lipase 31 Urine Color Urine Clarity Urine pH Ur Specific [place] Urine Protein Urine Glucose (UA) Urine Ketones Urine Occult Blood Urine Nitrite Urine Bilirubin Urine Urobilinogen Ur Leukocyte Esterase Ur Microscopic Review Urine Culture Comments Salicylates < 6.0 Urine Opiates Screen Ur Oxycodone Screen Urine Methadone Screen Ur Propoxyphene Screen Acetaminophen < 10 L Ur Barbiturates Screen Ur Tricyclics Screen Ur Phencyclidine Scrn Ur Amphetamine Screen U Methamphetamines Scrn U Benzodiazepines Scrn Urine Cocaine Screen U Cannabinoids Screen 06/08/18 22:00 WBC RBC Hgb Hct MCV MCH MCHC RDW Plt Count MPV Neut # (Auto) Lymph # (Auto) Kerr # (Auto) Eos # (Auto) Baso # (Auto) Absolute Nucleated RBC Nucleated RBC % Sodium Potassium Chloride Carbon Dioxide Anion Gap BUN Creatinine Estimated GFR (MDRD) Glucose Calcium Total Bilirubin AST ALT Alkaline Phosphatase CK-MB (CK-2) Troponin I Total Protein Albumin Globulin Albumin/Globulin Ratio Lipase Urine Color YELLOW Urine Clarity CLEAR Urine pH 8.0 H Ur Specific [place] 1.010 Urine Protein NEGATIVE Urine Glucose (UA) NEGATIVE Urine Ketones NEGATIVE Urine Occult Blood NEGATIVE Urine Nitrite NEGATIVE Urine Bilirubin NEGATIVE Urine Urobilinogen 0.2 (NORMAL) Ur Leukocyte Esterase NEGATIVE Ur Microscopic Review NOT INDICATED Urine Culture Comments NOT INDICATED Salicylates Urine Opiates Screen POSITIVE H Ur Oxycodone Screen NEGATIVE Urine Methadone Screen NEGATIVE Ur Propoxyphene Screen NEGATIVE Acetaminophen Ur Barbiturates Screen NEGATIVE Ur Tricyclics Screen NEGATIVE Ur Phencyclidine Scrn NEGATIVE Ur Amphetamine Screen NEGATIVE U Methamphetamines Scrn NEGATIVE U Benzodiazepines Scrn NEGATIVE Urine Cocaine Screen NEGATIVE U Cannabinoids Screen NEGATIVE - Rads (name of study) CXR Radiology: Final report received (1. No acute disease in the chest. 2. Cardiomegaly.) Hip Radiology: Final report received (1. No acute osseous abnormalities. Normal alignment. 2. Status post right total hip arthroplasty, stable. No dislocation.) CT head Radiology: Final report received PD MEDICAL DECISION MAKING - ED course ED course: The patient appears acutely confused and disoriented secondary from polypharmacy most likely the morphine that was started today. The patient will require admission to the hospital for ongoing management of her medications and delirium. The findings and plan were discussed with the patient's daughter who understands and agrees to the plan. The case was discussed with the hospitalist Dr. Flanagan who accepts the patient onto her service - Sepsis Event Vital Signs: Vital Signs - 24 hr 06/08/18 06/08/18 06/08/18 20:47 22:04 22:07 Temperature 36.4 C L Heart Rate 87 80 Respiratory 22 23 Rate Blood Pressure 122/53 L 118/52 L O2 Saturation 99 99 Oxygen O2 Source Room air Departure - Departure Disposition: ED Place in Observation Clinical Impression: Acute confusional state, Polypharmacy Condition: Fair
[2018-06-08 21:49] LABS: BASOPHILS % (AUTO) 0.6 %; EOSINOPHILS # (AUTO) 0.4 10^3/uL (0.0-0.7); EOSINOPHILS % (AUTO) 4.9 %; HGB - HEMOGLOBIN 10.1 g/dL (12.0-16.0); LYMPHOCYTES # (AUTO) 0.7 10^3/uL (1.5-3.5); LYMPHOCYTES % (AUTO) 9.2 %; MEAN CORPUSCULAR HEMOGLOBIN 35.5 pg (27.0-31.0); MEAN CORPUSCULAR HGB CONC 35.8 g/dL (32.0-36.0); MEAN CORPUSCULAR VOLUME 99.3 fL (81.0-99.0); MEAN PLATELET VOLUME 7.4 fL (7.9-10.8); MONOCYTES # (AUTO) 0.7 10^3/uL (0.0-1.0); MONOCYTES % (AUTO) 9.3 %; PLT - PLATELET COUNT 279 10^3/uL (130-450); RED BLOOD COUNT 2.85 10^6/uL (4.20-5.40); WHITE BLOOD COUNT 7.9 x10^3/uL (4.8-10.8)
--- NOTE | 2018-06-08 21:51 | CT Report ---
Reason: AMS Procedure Date: 06/08/2018 Accession Number: [id number] / [id number] Procedure: CT - Head W/O CPT Code: FULL RESULT: EXAM: CT HEAD EXAM DATE: 06/08/2018 09:35 PM. CLINICAL HISTORY: AMS. COMPARISON: None. TECHNIQUE: Multiaxial CT images were obtained from the foramen magnum to the vertex. Reformats: Sagittal and coronal. IV contrast: None. In accordance with CT protocol optimization, one or more of the following dose reduction techniques were utilized for this exam: automated exposure control, adjustment of mA and/or KV based on patient size, or use of iterative reconstructive technique. FINDINGS: Parenchyma: No intraparenchymal hemorrhage. No evidence of mass, midline shift, or CT findings of acute infarction. Periventricular white matter hypodensity likely represent small vessel ischemic disease. Larsen-white differentiation is distinct. Extraaxial Spaces: Normal for age. No subdural or epidural collections identified. Ventricles: Normal in size and position. Sinuses and Orbits: Imaged paranasal sinuses, orbits, and mastoids show no significant abnormality. Bones: No evidence of fracture or calvarial defect. Other: None. IMPRESSION: No acute intracranial CT abnormality. RADIA
--- NOTE | 2018-06-08 22:00 | XRAY Report ---
Reason: right hip pain after fall Procedure Date: 06/08/2018 Accession Number: [id number] / [id number] Procedure: XR - Hip w/Pelvis 1V RT CPT Code: FULL RESULT: EXAM: RIGHT HIP AND PELVIS RADIOGRAPHY EXAM DATE: 06/08/2018 09:33 PM. HISTORY: Right hip pain after fall. COMPARISONS: 06/06/2018. 06/01/2018. TECHNIQUE: 1 view of the pelvis and 1 view of the hip. FINDINGS: Bones: No acute fracture or bony lesion. Joints: Right total hip arthroplasty in anatomic alignment. No dislocation. Degenerative changes of the left hip joint and lower lumbar spine. Soft Tissues: Surgical brandan are seen overlying the right hip joint within the overlying subcutaneous tissues. Decreased volume of subcutaneous air/gas along the right hip joint which is likely postsurgical. IMPRESSION: 1. No acute osseous abnormalities. Normal alignment. 2. Status post right total hip arthroplasty, stable. No dislocation. RADIA
--- NOTE | 2018-06-08 22:01 | XRAY Report ---
Reason: AMS Procedure Date: 06/08/2018 Accession Number: [id number] / [id number] Procedure: XR - Chest 2 View X-Ray CPT Code: 66862 FULL RESULT: EXAM: CHEST RADIOGRAPHY EXAM DATE: 06/08/2018 09:33 PM. CLINICAL HISTORY: Altered mental status. Combative. Recent hip surgery. COMPARISON: None. TECHNIQUE: 2 views. FINDINGS: Lungs/Pleura: Interstitium is prominent. No focal opacities evident. No pleural effusion. No pneumothorax. Normal volumes. Mediastinum: Cardiomegaly. Prominent pulmonary arteries. Aortic atherosclerosis. Other: Degenerative changes of the thoracic spine. Changes are seen from median sternotomy. IMPRESSION: 1. No acute disease in the chest. 2. Cardiomegaly. RADIA
[2018-06-08 22:02] LABS: ALBUMIN 3.1 g/dL (3.2-5.5); ALBUMIN/GLOBULIN RATIO 0.8 (1.0-2.2); ALKALINE PHOSPHATASE 115 IU/L (42-121); ALT ALANINE AMINOTRANSFERASE 14 IU/L (10-60); AST ASPARTATE AMINOTRANSFERASE 49 IU/L (10-42); BILIRUBIN,TOTAL 0.9 mg/dL (0.2-1.0); BUN - BLOOD UREA NITROGEN 20 mg/dL (6-20); CARBON DIOXIDE - CO2 29 mmol/L (21-32); CHLORIDE 100 mmol/L (101-111); CREATININE 0.9 mg/dL (0.4-1.0); GFR - MDRD 60 (>89); GLUCOSE 138 mg/dL (70-100); LIPASE 31 U/L (22-51); SALICYLATE < 6.0 mg/dL; SODIUM 137 mmol/L (135-145); TOTAL PROTEIN 6.8 g/dL (6.7-8.2)
[2018-06-08 22:04] LABS: TROPONIN I < 0.04 ng/mL (<0.49)
[2018-06-08 22:05] LABS: MUDS CUTOFF CONCENTRATIONS CUTOFF CONC BELOW:
[2018-06-08 22:05] LABS: ACETAMINOPHEN < 10 ug/mL (10-30)
[2018-06-08 22:06] LABS: CREATINE KINASE MB 10.1 ng/mL (0.6-6.3)
[2018-06-08] MEDS ORDERED: SODIUM CHLORIDE 0.9% 1,000 ML IV ONE (22:17)
[2018-06-08 22:18] LABS: BILIRUBIN,URINE NEGATIVE (NEGATIVE); GLUCOSE, URINE (UA) NEGATIVE (NEGATIVE); KETONES,URINE (UA) NEGATIVE (NEGATIVE); LEUKOCYTE ESTERASE, URINE NEGATIVE (NEGATIVE); NITRITE,URINE NEGATIVE (NEGATIVE); OCCULT BLOOD,URINE NEGATIVE (NEGATIVE); PROTEIN,URINE NEGATIVE (NEGATIVE); UROBILINOGEN,URINE 0.2 (NORMAL) E.U./dL (NORMAL)
[2018-06-08 22:28] LABS: CLARITY,URINE CLEAR (CLEAR)
[2018-06-08 22:30] LABS: AMPHETAMINE SCREEN,URINE NEGATIVE (NEGATIVE); BENZODIAZEPINES SCREEN, URINE NEGATIVE (NEGATIVE); COCAINE SCREEN URINE NEGATIVE (NEGATIVE); METHADONE SCREEN, URINE NEGATIVE (NEGATIVE); METHAMPHETAMINES SCREEN, URINE NEGATIVE (NEGATIVE); OPIATE SCREEN, URINE POSITIVE (NEGATIVE); OXYCODONE SCREEN, URINE NEGATIVE (NEGATIVE); PROPOXYPHENE SCREEN, URINE NEGATIVE (NEGATIVE); TRICYCLIC ANTIDEPRESSANT,URINE NEGATIVE (NEGATIVE)
[2018-06-08] MEDS ORDERED: SODIUM CHLORIDE FLUSH 0.9% 10 ML SYRINGE IVP PRN (23:28)
[2018-06-08] MEDS ORDERED: ACETAMINOPHEN 1,000 MG/100 ML 100 ML IV PRN (23:33)
[2018-06-08] MEDS ORDERED: DEXTROSE 5%-0.9% NACL 1,000 ML IV SCH (23:45)
[2018-06-09] MEDS ORDERED: LORazepam 0.5 MG TABLET PO PRN (00:34)
[2018-06-09] MEDS ORDERED: LORazepam 2 MG/ML VIAL IVP PRN (01:12)
[2018-06-09] MEDS: QUEtiapine 25 MG TABLET PO SCH ×2 (01:33→20:29)
--- NOTE | 2018-06-09 02:25 | HISTORY & PHYSICAL EXAMINATION ---
DATE OF SERVICE: 06/09/2018 Physician: Janee Flanagan MD HISTORY OF PRESENT ILLNESS: This is an 82-year-old, white female who was just discharged from here to [facility] for PT rehab after hip surgery. She moved to [facility] from [place] recently. She has had frequent falls due to Parkinson's. During one of the falls here, she sustained a hip fracture and required admission for hip surgery. The surgery was delayed because she developed preoperative significant liver function test elevations, which then normalized and she had surgery. The real cause was never found, but presumed to be due to noncompliance with her medications, especially diuretics, and possibly passive liver congestion. She had the hip surgery successfully. Her postop course was complicated by many days of confusion, agitation, pulling out her IV and her Dennis. This was felt to be due to a reaction to opiates. All of her narcotics were discontinued when she was transferred to [facility]. She has been there for approximately a day. This morning, she was combative and yelling at the staff, and the overseeing doctor thought she was also not having adequate pain control, and she came to this emergency room this morning. She was given a dose of morphine, which helped her agitation, as well as pain, and she was sent back to [facility] with a prescription for p.o. morphine. It is not clear if she did have any more doses of morphine at [facility], but she again developed significant agitation and confusion including hallucinations, and was brought back to the emergency room this evening. There was possibly a trip and a fall also, but not on the new hip replacement. In the emergency room , she had x-rays done that have shown no areas of fracture or any problems with the recent hip surgery. She is being admitted for delirium, presumably due to opiates. PAST MEDICAL HISTORY: Dementia, Parkinson's, hypertension, recent hip surgery after a fall, confusion and agitation after many narcotic pain medications. SOCIAL HISTORY: She is a nonsmoker, no alcohol, no illicit drug use. FAMILY HISTORY: No inherited diseases. REVIEW OF SYSTEMS: A comprehensive review of systems was performed and the pertinent positives are in the HPI, the rest are negative. PHYSICAL EXAMINATION GENERAL: Elderly, white female. She is hallucinating. VITAL SIGNS: Blood pressure 128/78, pulse of 87 in sinus rhythm, afebrile, room air saturation 94%. HEENT: Unremarkable. NECK: Without JVD or carotid bruits. LUNGS: Clear. CARDIOVASCULAR: Heart sounds normal. ABDOMEN: Soft, nontender. EXTREMITIES: Without clubbing, cyanosis, edema. NEUROLOGIC: She has delirium, but has no focal neurologic findings. LABORATORIES: Normal electrolytes. Normal BUN and creatinine, AST 49, ALT 14. Troponin not detectable. Lipase normal. White blood count and differential normal. Hemoglobin 10.1, with an MCV of 99, platelet count normal at 279. Urinalysis unremarkable. Urine toxicology was positive for opiates, but otherwise all are negative. EKG shows normal sinus rhythm and a possible burst of atrial fibrillation. Hip x-ray showed normal position of the recent hip hardware and no fracture. Head CT was unremarkable and chest x-ray is unremarkable. IMPRESSION/DIAGNOSES 1. Delirium, probably related to narcotic use. 2. Recent hip surgery, requiring pain control. 3. Dementia. 4. Hypertension. 5. Parkinson's. 6. Anemia. PLAN: Place the patient in Observation. Stop all her narcotics and use only Tylenol or nonsteroidal anti-inflammatories for pain control. Continue with her other medications, such as her Synthroid, blood pressure medications. She may require Ativan or Seroquel or Haldol or a combination for her agitation, as well as restraints for her safety. CODE STATUS: FULL CODE. DEEP VENOUS THROMBOSIS PROPHYLAXIS: SCDs. ATTESTATION: The patient is expected to be discharged or transferred to another facility within 96 hours: Yes. TD: 06/09/2018 00:43 YVOANY
--- NOTE | 2018-06-09 03:11 | HISTORY & PHYSICAL EXAMINATION ---
incomplete dictation, author combined with rest of document - ok to cancel this 06/09/2018 jillian TD: 06/09/2018 00:29 YOVANY
[2018-06-09] MEDS ORDERED: ACETAMINOPHEN 325 MG TABLET PO PRN (07:58)
[2018-06-09 08:15] LABS: BASOPHILS % (AUTO) 0.5 %; EOSINOPHILS # (AUTO) 0.2 10^3/uL (0.0-0.7); EOSINOPHILS % (AUTO) 2.5 %; HGB - HEMOGLOBIN 9.5 g/dL (12.0-16.0); LYMPHOCYTES # (AUTO) 0.8 10^3/uL (1.5-3.5); LYMPHOCYTES % (AUTO) 9.4 %; MEAN CORPUSCULAR HEMOGLOBIN 34.6 pg (27.0-31.0); MEAN CORPUSCULAR VOLUME 98.7 fL (81.0-99.0); MONOCYTES # (AUTO) 0.6 10^3/uL (0.0-1.0); MONOCYTES % (AUTO) 7.2 %; NEUTROPHILS # (AUTO) 7.1 10^3/uL (1.5-6.6); NEUTROPHILS % (AUTO) 80.4 %; PLT - PLATELET COUNT 247 10^3/uL (130-450); RED BLOOD COUNT 2.74 10^6/uL (4.20-5.40); RED CELL DISTRIBUTION WIDTH 13.3 % (12.0-15.0); WHITE BLOOD COUNT 8.8 x10^3/uL (4.8-10.8)
[2018-06-09 08:20] LABS: ALBUMIN 2.7 g/dL (3.2-5.5); ALBUMIN/GLOBULIN RATIO 0.8 (1.0-2.2); BILIRUBIN,TOTAL 0.9 mg/dL (0.2-1.0); CALCIUM 8.1 mg/dL (8.5-10.3); CREATININE 0.7 mg/dL (0.4-1.0); TOTAL PROTEIN 5.9 g/dL (6.7-8.2)
[2018-06-09] MEDS: SODIUM CHLORIDE FLUSH 0.9% 10 ML SYRINGE IVP SCH ×4 (10:07→23:41)
[2018-06-09] MEDS: ENOXAPARIN 40 MG/0.4 ML SYRINGE SUBQ SCH (10:12)
[2018-06-09] MEDS: LEVOTHYROXINE 25 MCG TABLET PO SCH (11:15)
[2018-06-09] MEDS: amLODIPine 5 MG TABLET PO SCH ×2 (11:16→20:29)
[2018-06-09] MEDS: ASPIRIN 325 MG TABLET PO SCH ×2 (11:16→20:29)
[2018-06-09] MEDS: CARBIDOPA/LEVODOPA 25 MG/100 MG TABLET PO SCH ×3 (11:16→16:07)
[2018-06-09] MEDS: PANTOPRAZOLE 40 MG TABLET PO SCH ×2 (11:16→16:07)
[2018-06-09] MEDS: METOPROLOL TARTRATE 50 MG TABLET PO SCH ×2 (11:18→20:29)
[2018-06-09] MEDS: POLYETHYLENE GLYCOL 3350 17 GM PACKET PO SCH (11:18)
[2018-06-09] MEDS: FAMOTIDINE 20 MG TABLET PO SCH (11:18)
--- NOTE | 2018-06-09 13:44 | PROVIDER PROGRESS NOTE ---
Subjective - Prog Note Date Prog Note Date: 06/09/18 - Subjective Pt reports feeling: Improved Subjective: pt is sitting in the chair to eat her lunch, it appears pt's behaviour is better. No fever, cough, CP, SOB, headache reported. Hold all her home opiates, ativan. Tylenol, and Toradol is used for short period of time to control her pain. Current Medications - Current Medications Current Medications: Active Medications Acetaminophen (Tylenol) 650 mg PO Q4HR PRN PRN Reason: Pain or Fever > 38C (100.4F) Amlodipine Besylate (Norvasc) 5 mg PO BID [facility] Last Admin: 06/09/18 11:16 Dose: Not Given Aspirin (Arjun) 325 mg PO BID [facility] Last Admin: 06/09/18 11:16 Dose: Not Given Carbidopa/Levodopa (Sinemet 25 Mg/100 Mg) 2 tab PO 0800,1200,1700 [facility] Last Admin: 06/09/18 13:42 Dose: 2 tab Enoxaparin Sodium (Lovenox) 40 mg SUBQ DAILY [facility] Last Admin: 06/09/18 10:12 Dose: 40 mg Famotidine (Pepcid) 20 mg PO DAILY [facility] Last Admin: 06/09/18 11:18 Dose: Not Given Ketorolac Tromethamine (Toradol Inj (15mg)) 15 mg IVP Q6HR PRN PRN Reason: PAIN Stop: 06/14/18 13:56 Levothyroxine Sodium (Synthroid) 50 mcg PO QDAC [facility] Last Admin: 06/09/18 11:15 Dose: Not Given Metoprolol Tartrate (Lopressor) 50 mg PO BID [facility] Last Admin: 06/09/18 11:18 Dose: Not Given Pantoprazole Sodium (Protonix) 40 mg PO BIDAC [facility] Last Admin: 06/09/18 11:16 Dose: Not Given Polyethylene Glycol (Miralax) 17 gm PO DAILY [facility] Last Admin: 06/09/18 11:18 Dose: Not Given Quetiapine Fumarate (Seroquel) 25 mg PO QPM [facility] Last Admin: 06/09/18 01:33 Dose: 25 mg Sodium Chloride (Normal Saline Flush 0.9%) 10 ml IVP PRN PRN PRN Reason: NEEDED PER PROVIDER ORDERS Sodium Chloride (Normal Saline Flush 0.9%) 10 ml IVP 0100,0900,1700 [facility] Last Admin: 06/09/18 11:19 Dose: Not Given Carbidopa/Levodopa 25/100 [Sinemet 25 mg/100 mg] 2 each PO 0800,1200,1700 Dexlansoprazole [Dexilant] 60 mg PO QDAC 06/01/18 Furosemide [Lasix] 40 mg PO DAILY 06/01/18 Lorazepam [Ativan] 0.5 mg PO BID PRN 06/01/18 amLODIPine [Norvasc] 5 mg PO BID 06/01/18 Metoprolol Tartrate 50 mg PO BID 06/02/18 Potassium Chloride 40 meq PO DAILY 06/02/18 Trazodone HCl 50 mg PO QPM PRN 06/02/18 Ferrous Gluconate 240 mg PO DAILY 06/09/18 Ibuprofen [Motrin] 400 mg PO Q6H PRN 06/09/18 Objective - Vital Signs/Intake & Output Vital Signs: Vital Signs x48h Temp Pulse Resp BP Pulse Ox 06/09/18 12:30 37.2 C 85 22 122/47 L 94 06/09/18 08:00 36.7 C 86 22 121/45 L 92 Intake & Output: Intake & Output 06/06/18 06/07/18 06/08/18 06/09/18 23:59 23:59 23:59 23:59 Intake Total 280 Output Total 450 Balance -170 - Objective General Appearance: positive: No acute distress, Alert. negative: Lethargic Eyes Bilateral: positive: Normal inspection, PERRL, No lid inflammation, Conjunctivae nml ENT: positive: ENT inspection nml, Pharynx nml, No signs of dehydration. negative: Purulent nasal drainage, Pharyngeal erythema, Oral lesions Neck: positive: Nml inspection, Thyroid nml, No JVD, Trachea midline. negative : Thyromegaly, Lymphadenopathy (R), Lymphadenopathy (L), Stiff neck, Swelling/ bruising, Tracheal deviation Respiratory: positive: Chest non-tender, No respiratory distress, Breath sounds nml. negative: Wheezes, Rales, Rhonchi Cardiovascular: positive: Regular rate & rhythm, No murmur, No gallop. negative : Irregularly irregular, Extrasystoles, Tachycardia, Bradycardia, JVD present, Systolic murmur, Diastolic murmur Peripheral Pulses: 2+ Radial (R), 2+ Radial (L), 2+ Dorsalis pedis (R), 2+ Dorsalis pedis (L) Abdomen: positive: Non-tender, No organomegaly, Nml bowel sounds, No distention. negative: Tenderness, Guarding, Rebound Back: positive: Nml inspection. negative: CVA tenderness (R), CVA tenderness (L ) Skin: positive: Color nml, No rash, Warm, Dry. negative: Cyanosis, Diaphoresis , Pallor Extremities: positive: Non-tender. negative: Calf tenderness, Carol's sign/ cords Neurologic/Psychiatric: positive: Sensation nml. negative: Weakness, Sensory loss, Facial droop, Slurred/abnml speech - Lab Results Fish Bones: 06/09/18 08:04 06/09/18 08:04 Other Labs: Lab Results x24hrs 06/09/18 06/09/18 Range/Units 08:04 08:04 WBC 8.8 (4.8-10.8) x10^3/uL RBC 2.74 L (4.20-5.40) 10^6/uL Hgb 9.5 L (12.0-16.0) g/dL Hct 27.0 L (37.0-47.0) % MCV 98.7 (81.0-99.0) fL MCH 34.6 H (27.0-31.0) pg MCHC 35.0 (32.0-36.0) g/dL RDW 13.3 (12.0-15.0) % Plt Count 247 (130-450) 10^3/uL MPV 7.0 L (7.9-10.8) fL Neut # (Auto) 7.1 H (1.5-6.6) 10^3/uL Lymph # (Auto) 0.8 L (1.5-3.5) 10^3/uL [place] # (Auto) 0.6 (0.0-1.0) 10^3/uL Eos # (Auto) 0.2 (0.0-0.7) 10^3/uL Baso # (Auto) 0.0 (0.0-0.1) 10^3/uL Absolute Nucleated RBC 0.00 x10^3/uL Nucleated RBC % 0.0 /100WBC Sodium 133 L (135-145) mmol/L Potassium 4.4 (3.5-5.0) mmol/L Chloride 101 (101-111) mmol/L Carbon Dioxide 26 (21-32) mmol/L Anion Gap 6.0 (6-13) BUN 20 (6-20) mg/dL Creatinine 0.7 (0.4-1.0) mg/dL Estimated GFR (MDRD) 80 L (>89) Glucose 116 H (70-100) mg/dL Calcium 8.1 L (8.5-10.3) mg/dL Magnesium 2.0 (1.7-2.8) mg/dL Total Bilirubin 0.9 (0.2-1.0) mg/dL AST 34 (10-42) IU/L ALT 41 (10-60) IU/L Alkaline Phosphatase 94 (42-121) IU/L Total Protein 5.9 L (6.7-8.2) g/dL Albumin 2.7 L (3.2-5.5) g/dL Globulin 3.2 (2.1-4.2) g/dL Albumin/Globulin Ratio 0.8 L (1.0-2.2) ABX Reporting Has patient been on IV antibiotics over the past 48 hours?: No Assessment/Plan - Problem List (1) Altered mental status Impression: (1) delirium 06/09 CT of head is unremarkable. hold opiate and ativan now Tylenol and Toradol, for short period time pain control neuro check continue support (2) status post of right hip fracture repair continue PT/OT pain control with Tylenol and Toradol (3) Parkinson's disease Impression: continue Carbidopa/levodopa The patient has had this for the past several years and is prescribed Carbidopa/ levodopa at home, and this continues here. She consequently has become progressively weak, and this has been getting worse as per her daughter for at least the past year. She has baseline tremors. It is unclear whether the patient has been taking this as prescribed at home. Today, the patient requested that her dose be doubled as this was how she was supposed to take them. Plan: Continue to monitor mental status. (4) GERD (gastroesophageal reflux disease) Impression: The patient has a history of this and is prescribed Dexilant at home. She continues on IV Protonix while in the hospital. Plan: continue to monitor and treat nausea. (5) Hypothyroidism Impression: continue Levothyoxine increase to 50 mcg The patient has a history of this and is prescribed Synthroid at home, which continues here. A TSH was checked and is elevated at greater than 15, so I have prescribed this in an IV for at 50mcg daily until after her surgery. She should be continued at a higher dose than she reported upon admission, although there may be some discrepancy as to her compliance. Plan: Continue medication. (6) Hypertension Impression: stable, continue home meds vital monitor The patient is prescribed lasix, norvasc and metoprolol at home and these are now on hold as she is pre-op. Plan: Continue to hold home meds, IVFs, and monitor blood pressures. (7) anemia HGB is 9.5 will do anemia study, follow up Qualifiers: Altered mental status type: transient alteration of awareness Qualified Code(s): R40.4 - Transient alteration of awareness
[2018-06-09] MEDS ORDERED: ACETAMINOPHEN 1,000 MG/100 ML 100 ML IV PRN (14:12)
[2018-06-09] MEDS ORDERED: ACETAMINOPHEN 1,000 MG/100 ML 100 ML IV SCH (16:00)
[2018-06-09] MEDS: SODIUM CHLORIDE 0.9% 1,000 ML IV SCH (20:29)
[2018-06-09] MEDS: ACETAMINOPHEN 325 MG TABLET PO PRN (20:36)
--- NOTE | 2018-06-09 22:41 | XRAY Report ---
Reason: fever Procedure Date: 06/09/2018 Accession Number: [id number] / [id number] Procedure: XR - Chest 1 View X-Ray CPT Code: 66885 FULL RESULT: EXAM: CHEST RADIOGRAPHY EXAM DATE: 06/09/2018 07:00 PM. CLINICAL HISTORY: Fever. COMPARISON: CHEST 2 VIEW 06/08/2018. TECHNIQUE: 1 view. FINDINGS: Lungs/Pleura: No focal opacities evident. No pleural effusion. No pneumothorax. Mediastinum: Status post median sternotomy. Normal heart size. Other: None. IMPRESSION: Unremarkable portable chest radiograph. [facility]
[2018-06-10 05:55] LABS: BASOPHILS # (AUTO) 0.1 10^3/uL (0.0-0.1); BASOPHILS % (AUTO) 0.8 %; EOSINOPHILS # (AUTO) 0.4 10^3/uL (0.0-0.7); EOSINOPHILS % (AUTO) 5.2 %; HGB - HEMOGLOBIN 8.6 g/dL (12.0-16.0); LYMPHOCYTES # (AUTO) 0.9 10^3/uL (1.5-3.5); LYMPHOCYTES % (AUTO) 11.8 %; MEAN CORPUSCULAR HEMOGLOBIN 35.6 pg (27.0-31.0); MEAN CORPUSCULAR HGB CONC 35.6 g/dL (32.0-36.0); MEAN CORPUSCULAR VOLUME 99.9 fL (81.0-99.0); MEAN PLATELET VOLUME 7.4 fL (7.9-10.8); MONOCYTES # (AUTO) 0.7 10^3/uL (0.0-1.0); NEUTROPHILS # (AUTO) 5.3 10^3/uL (1.5-6.6); NEUTROPHILS % (AUTO) 72.2 %; PLT - PLATELET COUNT 269 10^3/uL (130-450); RED BLOOD COUNT 2.42 10^6/uL (4.20-5.40); RED CELL DISTRIBUTION WIDTH 13.3 % (12.0-15.0); WHITE BLOOD COUNT 7.3 x10^3/uL (4.8-10.8)
[2018-06-10 06:07] LABS: ALBUMIN 2.5 g/dL (3.2-5.5); ALBUMIN/GLOBULIN RATIO 0.8 (1.0-2.2); BILIRUBIN,TOTAL 0.7 mg/dL (0.2-1.0); CALCIUM 8.1 mg/dL (8.5-10.3); CREATININE 0.7 mg/dL (0.4-1.0); TOTAL PROTEIN 5.5 g/dL (6.7-8.2)
[2018-06-10] MEDS: LEVOTHYROXINE 25 MCG TABLET PO SCH (06:37)
[2018-06-10] MEDS: PANTOPRAZOLE 40 MG TABLET PO SCH ×2 (06:37→16:01)
[2018-06-10] MEDS: ACETAMINOPHEN 325 MG TABLET PO PRN ×2 (06:58→16:01)
[2018-06-10 07:32] LABS: MEAN RETIC VALUE 116.8; RED BLOOD COUNT 2.49 10^6/uL (4.20-5.40)
[2018-06-10 08:22] LABS: FERRITIN 127.9 ng/mL (11.0-306.8)
[2018-06-10 08:53] LABS: % IRON SATURATION 14 % (20-50); IRON 33 ug/dL (28-170); TOTAL IRON BINDING CAPACITY 231 ug/dL (250-450); TRANSFERRIN 165 mg/dL (192-382)
[2018-06-10] MEDS: ASPIRIN 325 MG TABLET PO SCH ×3 (09:56→20:23)
[2018-06-10] MEDS: FAMOTIDINE 20 MG TABLET PO SCH ×2 (09:56→11:14)
[2018-06-10] MEDS: CARBIDOPA/LEVODOPA 25 MG/100 MG TABLET PO SCH ×4 (09:56→18:35)
[2018-06-10] MEDS: METOPROLOL TARTRATE 50 MG TABLET PO SCH ×3 (09:56→20:23)
[2018-06-10] MEDS: amLODIPine 5 MG TABLET PO SCH ×3 (09:56→20:24)
[2018-06-10] MEDS: ENOXAPARIN 40 MG/0.4 ML SYRINGE SUBQ SCH (09:57)
[2018-06-10] MEDS: SODIUM CHLORIDE 0.9% 1,000 ML IV SCH ×2 (09:57→22:40)
[2018-06-10] MEDS: POLYETHYLENE GLYCOL 3350 17 GM PACKET PO SCH (11:03)
[2018-06-10] MEDS: SODIUM CHLORIDE FLUSH 0.9% 10 ML SYRINGE IVP SCH ×3 (11:03→23:36)
--- NOTE | 2018-06-10 12:23 | PROVIDER PROGRESS NOTE ---
Subjective - Prog Note Date Prog Note Date: 06/10/18 - Subjective Pt reports feeling: Improved Subjective: Pt's behaviour and delirium were better in the last night, but pt still present some delirium. she asked me " what happened in the outside, is everyone ok?" pt cried and asked what happened to her. Current Medications - Current Medications Current Medications: Active Medications Acetaminophen (Tylenol) 650 mg PO Q4HR PRN PRN Reason: Pain or Fever > 38C (100.4F) Last Admin: 06/10/18 06:58 Dose: 650 mg Amlodipine Besylate (Norvasc) 5 mg PO BID [facility] Last Admin: 06/10/18 11:14 Dose: Not Given Aspirin (Arjun) 325 mg PO BID [facility] Last Admin: 06/10/18 11:14 Dose: Not Given Carbidopa/Levodopa (Sinemet 25 Mg/100 Mg) 2 tab PO 0800,1200,1700 [facility] Last Admin: 06/10/18 11:14 Dose: Not Given Enoxaparin Sodium (Lovenox) 40 mg SUBQ DAILY [facility] Last Admin: 06/10/18 09:57 Dose: 40 mg Famotidine (Pepcid) 20 mg PO DAILY [facility] Last Admin: 06/10/18 11:14 Dose: Not Given Sodium Chloride (Normal Saline 0.9%) 1,000 mls @ 83.333 mls/hr IV .Q12H [facility] Last Admin: 06/10/18 09:57 Dose: 83.333 mls/hr Ketorolac Tromethamine (Toradol Inj (15mg)) 15 mg IVP Q6HR PRN PRN Reason: PAIN Stop: 06/14/18 13:56 Levothyroxine Sodium (Synthroid) 50 mcg PO QDAC [facility] Last Admin: 06/10/18 06:37 Dose: 50 mcg Metoprolol Tartrate (Lopressor) 50 mg PO BID [facility] Last Admin: 06/10/18 11:14 Dose: Not Given Pantoprazole Sodium (Protonix) 40 mg PO BIDAC [facility] Last Admin: 06/10/18 06:37 Dose: 40 mg Polyethylene Glycol (Miralax) 17 gm PO DAILY [facility] Last Admin: 06/10/18 11:03 Dose: Not Given Quetiapine Fumarate (Seroquel) 25 mg PO QPM [facility] Last Admin: 06/09/18 20:29 Dose: 25 mg Sodium Chloride (Normal Saline Flush 0.9%) 10 ml IVP PRN PRN PRN Reason: NEEDED PER PROVIDER ORDERS Sodium Chloride (Normal Saline Flush 0.9%) 10 ml IVP 0100,0900,1700 [facility] Last Admin: 06/10/18 11:03 Dose: Not Given Carbidopa/Levodopa 25/100 [Sinemet 25 mg/100 mg] 2 each PO 0800,1200,1700 Dexlansoprazole [Dexilant] 60 mg PO QDAC 06/01/18 Furosemide [Lasix] 40 mg PO DAILY 06/01/18 Lorazepam [Ativan] 0.5 mg PO BID PRN 06/01/18 amLODIPine [Norvasc] 5 mg PO BID 06/01/18 Metoprolol Tartrate 50 mg PO BID 06/02/18 Potassium Chloride 40 meq PO DAILY 06/02/18 Trazodone HCl 50 mg PO QPM PRN 06/02/18 Ferrous Gluconate 240 mg PO DAILY 06/09/18 Ibuprofen [Motrin] 400 mg PO Q6H PRN 06/09/18 Objective - Vital Signs/Intake & Output Reviewed Vital Signs: Yes Vital Signs: Vital Signs x48h Temp Pulse Resp BP Pulse Ox 06/10/18 08:54 36.8 C 70 17 121/42 L 95 Intake & Output: Intake & Output 06/07/18 06/08/18 06/09/18 06/10/18 23:59 23:59 23:59 23:59 Intake Total 580 1000 Output Total 450 250 Balance 130 750 - Objective General Appearance: positive: No acute distress, Alert. negative: Lethargic Eyes Bilateral: positive: Normal inspection, PERRL. negative: No lid inflammation, Conjunctivae nml ENT: positive: ENT inspection nml, Pharynx nml. negative: Purulent nasal drainage, Pharyngeal erythema Neck: positive: Nml inspection, Thyroid nml, No JVD, Trachea midline. negative : Thyromegaly, Lymphadenopathy (R), Lymphadenopathy (L), Stiff neck, Swelling/ bruising, Tracheal deviation Respiratory: positive: Chest non-tender, No respiratory distress, Breath sounds nml. negative: Wheezes, Rales, Rhonchi Cardiovascular: positive: Regular rate & rhythm, No murmur, No gallop. negative : Irregularly irregular, Extrasystoles, Tachycardia, Bradycardia, JVD present, Systolic murmur, Diastolic murmur Peripheral Pulses: 2+ Radial (R), 2+ Radial (L), 2+ Dorsalis pedis (R), 2+ Dorsalis pedis (L) Abdomen: positive: Non-tender, No organomegaly, Nml bowel sounds, No distention. negative: Tenderness, Guarding, Rebound Back: positive: Nml inspection. negative: CVA tenderness (R), CVA tenderness (L ) Skin: positive: Color nml, No rash, Warm, Dry. negative: Cyanosis, Diaphoresis , Pallor Extremities: positive: Non-tender. negative: Calf tenderness, Joint swelling, Carol's sign/cords Neurologic/Psychiatric: positive: Sensation nml. negative: Weakness, Sensory loss, Facial droop, Slurred/abnml speech - Lab Results Fish Bones: 06/10/18 05:18 06/10/18 05:18 Other Labs: Lab Results x24hrs 06/10/18 06/10/18 06/10/18 Range/Units 05:18 05:18 05:18 WBC (4.8-10.8) x10^3/uL RBC (4.20-5.40) 10^6/uL Hgb (12.0-16.0) g/dL Hct (37.0-47.0) % MCV (81.0-99.0) fL MCH (27.0-31.0) pg MCHC (32.0-36.0) g/dL RDW (12.0-15.0) % Plt Count (130-450) 10^3/uL MPV (7.9-10.8) fL Reticulocyte % (Auto) (0.5-2.3) % Neut # (Auto) (1.5-6.6) 10^3/uL Lymph # (Auto) (1.5-3.5) 10^3/uL [place] # (Auto) (0.0-1.0) 10^3/uL Eos # (Auto) (0.0-0.7) 10^3/uL Baso # (Auto) (0.0-0.1) 10^3/uL Absolute Nucleated RBC x10^3/uL Nucleated RBC % /100WBC Absolute Retic (0.020-0.110) 10^6/uL Sodium (135-145) mmol/L Potassium (3.5-5.0) mmol/L Chloride (101-111) mmol/L Carbon Dioxide (21-32) mmol/L Anion Gap (6-13) BUN (6-20) mg/dL Creatinine (0.4-1.0) mg/dL Estimated GFR (MDRD) (>89) Glucose (70-100) mg/dL Calcium (8.5-10.3) mg/dL Iron 33 (28-170) ug/dL TIBC 231 L (250-450) ug/dL % Saturation 14 L (20-50) % Transferrin 165 L (192-382) mg/dL Ferritin 127.9 (11.0-306.8) ng/mL Total Bilirubin (0.2-1.0) mg/dL AST (10-42) IU/L ALT (10-60) IU/L Alkaline Phosphatase (42-121) IU/L Lactate Dehydrogenase 185 (91-225) IU/L Total Protein (6.7-8.2) g/dL Albumin (3.2-5.5) g/dL Globulin (2.1-4.2) g/dL Albumin/Globulin Ratio (1.0-2.2) Vitamin B12 642 (180-914) pg/mL 06/10/18 06/10/18 06/10/18 Range/Units 05:18 05:18 05:18 WBC 7.3 (4.8-10.8) x10^3/uL RBC 2.49 L 2.42 L (4.20-5.40) 10^6/uL Hgb 8.6 L (12.0-16.0) g/dL Hct 24.2 L (37.0-47.0) % MCV 99.9 H (81.0-99.0) fL MCH 35.6 H (27.0-31.0) pg MCHC 35.6 (32.0-36.0) g/dL RDW 13.3 (12.0-15.0) % Plt Count 269 (130-450) 10^3/uL MPV 7.4 L (7.9-10.8) fL Reticulocyte % (Auto) 2.79 H (0.5-2.3) % Neut # (Auto) 5.3 (1.5-6.6) 10^3/uL Lymph # (Auto) 0.9 L (1.5-3.5) 10^3/uL [place] # (Auto) 0.7 (0.0-1.0) 10^3/uL Eos # (Auto) 0.4 (0.0-0.7) 10^3/uL Baso # (Auto) 0.1 (0.0-0.1) 10^3/uL Absolute Nucleated RBC 0.00 x10^3/uL Nucleated RBC % 0.0 /100WBC Absolute Retic 0.069 (0.020-0.110) 10^6/uL Sodium 140 (135-145) mmol/L Potassium 3.8 (3.5-5.0) mmol/L Chloride 109 (101-111) mmol/L Carbon Dioxide 25 (21-32) mmol/L Anion Gap 6.0 (6-13) BUN 16 (6-20) mg/dL Creatinine 0.7 (0.4-1.0) mg/dL Estimated GFR (MDRD) 80 L (>89) Glucose 103 H (70-100) mg/dL Calcium 8.1 L (8.5-10.3) mg/dL Iron (28-170) ug/dL TIBC (250-450) ug/dL % Saturation (20-50) % Transferrin (192-382) mg/dL Ferritin (11.0-306.8) ng/mL Total Bilirubin 0.7 (0.2-1.0) mg/dL AST 24 (10-42) IU/L ALT 25 (10-60) IU/L Alkaline Phosphatase 77 (42-121) IU/L Lactate Dehydrogenase (91-225) IU/L Total Protein 5.5 L (6.7-8.2) g/dL Albumin 2.5 L (3.2-5.5) g/dL Globulin 3.0 (2.1-4.2) g/dL Albumin/Globulin Ratio 0.8 L (1.0-2.2) Vitamin B12 (180-914) pg/mL ABX Reporting Has patient been on IV antibiotics over the past 48 hours?: No Assessment/Plan - Problem List (1) Delirium Impression: (1) delirium 06/10 pt's mental status is better than yesterday, no combative, or agitated. But still present some delirium, she asked " what happened in the outside, is everyone ok?" pt cried and asked what happened to her. CT of head is unremarkable check TSH, vit B12, ammonia level continue neuro check continue support 06/09 CT of head is unremarkable. hold opiate and ativan now Tylenol and Toradol, for short period time pain control neuro check continue support (2) status post of right hip fracture repair continue PT/OT pain control with Tylenol and Toradol (3) Parkinson's disease Impression: continue Carbidopa/levodopa The patient has had this for the past several years and is prescribed Carbidopa/ levodopa at home, and this continues here. She consequently has become progressively weak, and this has been getting worse as per her daughter for at least the past year. She has baseline tremors. It is unclear whether the patient has been taking this as prescribed at home. Today, the patient requested that her dose be doubled as this was how she was supposed to take them. Plan: Continue to monitor mental status. (4) GERD (gastroesophageal reflux disease) Impression: The patient has a history of this and is prescribed Dexilant at home. She continues on IV Protonix while in the hospital. Plan: continue to monitor and treat nausea. (5) Hypothyroidism Impression: continue Levothyoxine increase to 50 mcg The patient has a history of this and is prescribed Synthroid at home, which continues here. A TSH was checked and is elevated at greater than 15, so I have prescribed this in an IV for at 50mcg daily until after her surgery. She should be continued at a higher dose than she reported upon admission, although there may be some discrepancy as to her compliance. Plan: Continue medication. (6) Hypertension Impression: stable, continue home meds vital monitor The patient is prescribed lasix, norvasc and metoprolol at home and these are now on hold as she is pre-op. Plan: Continue to hold home meds, IVFs, and monitor blood pressures. (7) anemia 06/10 HGB 8.6 from yesterday 9.5 start iron pill occult stool blood test, will follow up daily lab monitor HGB is 9.5 will do anemia study, follow up
[2018-06-10] MEDS: KETOROLAC 15 MG/ML VIAL IVP PRN (14:26)
[2018-06-10] MEDS: QUEtiapine 25 MG TABLET PO SCH (20:24)
[2018-06-11 05:18] LABS: BASOPHILS # (AUTO) 0.1 10^3/uL (0.0-0.1); BASOPHILS % (AUTO) 0.8 %; EOSINOPHILS # (AUTO) 0.4 10^3/uL (0.0-0.7); HGB - HEMOGLOBIN 8.5 g/dL (12.0-16.0); LYMPHOCYTES # (AUTO) 1.1 10^3/uL (1.5-3.5); MEAN CORPUSCULAR HGB CONC 34.3 g/dL (32.0-36.0); MEAN CORPUSCULAR VOLUME 99.4 fL (81.0-99.0); MEAN PLATELET VOLUME 6.7 fL (7.9-10.8); MONOCYTES # (AUTO) 0.7 10^3/uL (0.0-1.0); NEUTROPHILS # (AUTO) 4.6 10^3/uL (1.5-6.6); NEUTROPHILS % (AUTO) 67.2 %; PLT - PLATELET COUNT 290 10^3/uL (130-450); RED BLOOD COUNT 2.51 10^6/uL (4.20-5.40); RED CELL DISTRIBUTION WIDTH 13.1 % (12.0-15.0); WHITE BLOOD COUNT 6.9 x10^3/uL (4.8-10.8)
[2018-06-11 05:29] LABS: ALBUMIN 2.5 g/dL (3.2-5.5); ALBUMIN/GLOBULIN RATIO 0.8 (1.0-2.2); BILIRUBIN,TOTAL 0.4 mg/dL (0.2-1.0); CREATININE 0.6 mg/dL (0.4-1.0); TOTAL PROTEIN 5.6 g/dL (6.7-8.2)
[2018-06-11] MEDS: LEVOTHYROXINE 25 MCG TABLET PO SCH (06:00)
[2018-06-11] MEDS: PANTOPRAZOLE 40 MG TABLET PO SCH ×2 (06:00→17:11)
[2018-06-11 06:17] LABS: BILIRUBIN,URINE NEGATIVE (NEGATIVE); GLUCOSE, URINE (UA) NEGATIVE (NEGATIVE); KETONES,URINE (UA) NEGATIVE (NEGATIVE); LEUKOCYTE ESTERASE, URINE LARGE (NEGATIVE); NITRITE,URINE NEGATIVE (NEGATIVE); OCCULT BLOOD,URINE MODERATE (NEGATIVE); PH,URINE 6.5 PH (5.0-7.5); PROTEIN,URINE 30 mg/dL (NEGATIVE); UROBILINOGEN,URINE 0.2 (NORMAL) E.U./dL (NORMAL)
[2018-06-11 06:18] LABS: CLARITY,URINE SL. CLOUDY (CLEAR)
[2018-06-11] MEDS: CARBIDOPA/LEVODOPA 25 MG/100 MG TABLET PO SCH ×3 (07:50→17:11)
[2018-06-11] MEDS ORDERED: FERROUS SULFATE 325 MG TABLET PO SCH (08:00)
[2018-06-11] MEDS ORDERED: ACETAMINOPHEN 325 MG TABLET PO PRN (08:07)
[2018-06-11] MEDS ORDERED: IBUPROFEN 400 MG TABLET PO PRN (08:07)
--- NOTE | 2018-06-11 08:28 | PROVIDER PROGRESS NOTE ---
Subjective - Prog Note Date Prog Note Date: 06/11/18 Prog Note Time: 08:27 - Subjective Pt reports feeling: Improved Subjective: Melodie complains about "being stuck in her chair for too long". She states that her right leg feels very "stiff" and her bottom aches from sitting in the chair. She denies any new symptoms such as increased shortness of breath, nausea, vomiting, or a new cough. She has no abdominal cramping and denies blood stools, although, has a + guiac stool test today. Current Medications - Current Medications Current Medications: Active Medications Acetaminophen (Tylenol) 650 mg PO Q4HR PRN PRN Reason: Pain or Fever > 38C (100.4F) Last Admin: 06/10/18 16:01 Dose: 650 mg Acetaminophen (Tylenol) 650 mg PO Q4HR PRN PRN Reason: Pain or Fever > 38C (100.4F) Amlodipine Besylate (Norvasc) 5 mg PO BID [facility] Last Admin: 06/11/18 09:14 Dose: Not Given Aspirin (Arjun) 325 mg PO DAILY [facility] Last Admin: 06/11/18 09:16 Dose: 325 mg Carbidopa/Levodopa (Sinemet 25 Mg/100 Mg) 2 tab PO 0800,1200,1700 [facility] Last Admin: 06/11/18 07:50 Dose: 2 tab Enoxaparin Sodium (Lovenox) 40 mg SUBQ DAILY [facility] Last Admin: 06/11/18 09:16 Dose: 40 mg Famotidine (Pepcid) 20 mg PO DAILY [facility] Last Admin: 06/11/18 09:16 Dose: 20 mg Ferrous Gluconate (Fergon) 324 mg PO BID [facility] Last Admin: 06/11/18 09:16 Dose: 324 mg Ibuprofen (Motrin) 400 mg PO Q6H PRN PRN Reason: PAIN Ketorolac Tromethamine (Toradol Inj (15mg)) 15 mg IVP Q6HR PRN PRN Reason: PAIN Stop: 06/14/18 13:56 Last Admin: 06/10/18 14:26 Dose: 15 mg Levothyroxine Sodium (Synthroid) 50 mcg PO QDAC [facility] Last Admin: 06/11/18 06:00 Dose: Not Given Metoprolol Succinate (Toprol Xl) 25 mg PO BID [facility] Last Admin: 06/11/18 09:14 Dose: Not Given Pantoprazole Sodium (Protonix) 40 mg PO BIDAC [facility] Last Admin: 06/11/18 06:00 Dose: Not Given Polyethylene Glycol (Miralax) 17 gm PO DAILY [facility] Last Admin: 06/11/18 09:17 Dose: Not Given Quetiapine Fumarate (Seroquel) 25 mg PO QPM [facility] Last Admin: 06/10/18 20:24 Dose: 25 mg Sodium Chloride (Normal Saline Flush 0.9%) 10 ml IVP PRN PRN PRN Reason: NEEDED PER PROVIDER ORDERS Sodium Chloride (Normal Saline Flush 0.9%) 10 ml IVP 0100,0900,1700 [facility] Last Admin: 06/11/18 09:17 Dose: Not Given RX: Carbidopa/Levodopa 25/100 [Sinemet 25 mg/100 mg] 2 each PO 0800,1200,1700 06/01/18 RX: Dexlansoprazole [Dexilant] 60 mg PO QDAC 06/01/18 RX: Furosemide [Lasix] 40 mg PO DAILY 06/01/18 RX: Lorazepam [Ativan] 0.5 mg PO BID PRN 06/01/18 RX: amLODIPine [Norvasc] 5 mg PO BID 06/01/18 RX: Metoprolol Tartrate 50 mg PO BID 06/02/18 RX: Potassium Chloride 40 meq PO DAILY 06/02/18 RX: Trazodone HCl 50 mg PO QPM PRN 06/02/18 Ibuprofen [Motrin] 400 mg PO Q6H PRN 06/09/18 RX: Ferrous Gluconate 240 mg PO DAILY 06/09/18 Objective - Vital Signs/Intake & Output Reviewed Vital Signs: Yes Intake & Output: Intake & Output 06/08/18 06/09/18 06/10/18 06/11/18 23:59 23:59 23:59 23:59 Intake Total 3306 054 4676 Output Total 450 2100 Balance 1000 130 770 - Objective General Appearance: positive: Alert, Moderate distress, Anxious Eyes Bilateral: positive: Normal inspection, PERRL Eyes: OU Conjunctivae pale ENT: positive: ENT inspection nml, Pharynx nml, No signs of dehydration Neck: positive: Nml inspection, Thyroid nml, No JVD, Trachea midline Respiratory: positive: Chest non-tender, No respiratory distress, Other (dimin ished, bilaterally) Cardiovascular: positive: Regular rate & rhythm, No gallop, Systolic murmur Peripheral Pulses: 2+ Radial (R), 2+ Radial (L) Abdomen: positive: Non-tender, No organomegaly, Nml bowel sounds, Other (rounded, soft) Back: positive: Nml inspection Skin: positive: No rash, Warm, Dry, Other (pale) Extremities: positive: Non-tender Neurologic/Psychiatric: positive: CN's nml (2-12), Motor nml, Weakness, Depress ed mood/affect Reflexes: Bicep (R): 2+, Bicep (L): 2+ - Lab Results Fish Bones: 06/13/18 05:20 06/13/18 05:20 Other Labs: Lab Results x24hrs 06/11/18 06/11/18 06/11/18 Range/Units 05:09 05:09 05:09 WBC (4.8-10.8) x10^3/uL RBC (4.20-5.40) 10^6/uL Hgb (12.0-16.0) g/dL Hct (37.0-47.0) % MCV (81.0-99.0) fL MCH (27.0-31.0) pg MCHC (32.0-36.0) g/dL RDW (12.0-15.0) % Plt Count (130-450) 10^3/uL MPV (7.9-10.8) fL Neut # (Auto) (1.5-6.6) 10^3/uL Lymph # (Auto) (1.5-3.5) 10^3/uL Love # (Auto) (0.0-1.0) 10^3/uL Eos # (Auto) (0.0-0.7) 10^3/uL Baso # (Auto) (0.0-0.1) 10^3/uL Absolute Nucleated RBC x10^3/uL Nucleated RBC % /100WBC Sodium (135-145) mmol/L Potassium (3.5-5.0) mmol/L Chloride (101-111) mmol/L Carbon Dioxide (21-32) mmol/L Anion Gap (6-13) BUN (6-20) mg/dL Creatinine (0.4-1.0) mg/dL Estimated GFR (MDRD) (>89) Glucose (70-100) mg/dL Calcium (8.5-10.3) mg/dL Iron (28-170) ug/dL TIBC (250-450) ug/dL % Saturation (20-50) % Transferrin (192-382) mg/dL Total Bilirubin (0.2-1.0) mg/dL AST (10-42) IU/L ALT (10-60) IU/L Alkaline Phosphatase (42-121) IU/L Ammonia 11.3 (7-35) umol/L Total Protein (6.7-8.2) g/dL Albumin (3.2-5.5) g/dL Globulin (2.1-4.2) g/dL Albumin/Globulin Ratio (1.0-2.2) Vitamin B12 587 (180-914) pg/mL TSH 15.60 H (0.34-5.60) uIU/mL Urine Color Urine Clarity (CLEAR) Urine pH (5.0-7.5) PH Ur Specific [place] (1.002-1.030) Urine Protein (NEGATIVE) mg/dL Urine Glucose (UA) (NEGATIVE) mg/dL Urine Ketones (NEGATIVE) mg/dL Urine Occult Blood (NEGATIVE) Urine Nitrite (NEGATIVE) Urine Bilirubin (NEGATIVE) Urine Urobilinogen (NORMAL) E.U./dL Ur Leukocyte Esterase (NEGATIVE) 06/11/18 06/11/18 06/11/18 Range/Units 05:09 05:09 04:45 WBC 6.9 (4.8-10.8) x10^3/uL RBC 2.51 L (4.20-5.40) 10^6/uL Hgb 8.5 L (12.0-16.0) g/dL Hct 25.0 L (37.0-47.0) % MCV 99.4 H (81.0-99.0) fL MCH 34.0 H (27.0-31.0) pg MCHC 34.3 (32.0-36.0) g/dL RDW 13.1 (12.0-15.0) % Plt Count 290 (130-450) 10^3/uL MPV 6.7 L (7.9-10.8) fL Neut # (Auto) 4.6 (1.5-6.6) 10^3/uL Lymph # (Auto) 1.1 L (1.5-3.5) 10^3/uL Love # (Auto) 0.7 (0.0-1.0) 10^3/uL Eos # (Auto) 0.4 (0.0-0.7) 10^3/uL Baso # (Auto) 0.1 (0.0-0.1) 10^3/uL Absolute Nucleated RBC 0.00 x10^3/uL Nucleated RBC % 0.0 /100WBC Sodium 140 (135-145) mmol/L Potassium 3.7 (3.5-5.0) mmol/L Chloride 111 (101-111) mmol/L Carbon Dioxide 23 (21-32) mmol/L Anion Gap 6.0 (6-13) BUN 11 (6-20) mg/dL Creatinine 0.6 (0.4-1.0) mg/dL Estimated GFR (MDRD) 95 (>89) Glucose 89 (70-100) mg/dL Calcium 8.0 L (8.5-10.3) mg/dL Iron (28-170) ug/dL TIBC (250-450) ug/dL % Saturation (20-50) % Transferrin (192-382) mg/dL Total Bilirubin 0.4 (0.2-1.0) mg/dL AST 13 (10-42) IU/L ALT 13 (10-60) IU/L Alkaline Phosphatase 76 (42-121) IU/L Ammonia (7-35) umol/L Total Protein 5.6 L (6.7-8.2) g/dL Albumin 2.5 L (3.2-5.5) g/dL Globulin 3.1 (2.1-4.2) g/dL Albumin/Globulin Ratio 0.8 L (1.0-2.2) Vitamin B12 (180-914) pg/mL TSH (0.34-5.60) uIU/mL Urine Color YELLOW Urine Clarity SL. CLOUDY (CLEAR) Urine pH 6.5 (5.0-7.5) PH Ur Specific [place] 1.010 (1.002-1.030) Urine Protein 30 H (NEGATIVE) mg/dL Urine Glucose (UA) NEGATIVE (NEGATIVE) mg/dL Urine Ketones NEGATIVE (NEGATIVE) mg/dL Urine Occult Blood MODERATE H (NEGATIVE) Urine Nitrite NEGATIVE (NEGATIVE) Urine Bilirubin NEGATIVE (NEGATIVE) Urine Urobilinogen 0.2 (NORMAL) (NORMAL) E.U./dL Ur Leukocyte Esterase LARGE H (NEGATIVE) 06/10/18 06/10/18 Range/Units 05:18 05:18 WBC (4.8-10.8) x10^3/uL RBC (4.20-5.40) 10^6/uL Hgb (12.0-16.0) g/dL Hct (37.0-47.0) % MCV (81.0-99.0) fL MCH (27.0-31.0) pg MCHC (32.0-36.0) g/dL RDW (12.0-15.0) % Plt Count (130-450) 10^3/uL MPV (7.9-10.8) fL Neut # (Auto) (1.5-6.6) 10^3/uL Lymph # (Auto) (1.5-3.5) 10^3/uL Love # (Auto) (0.0-1.0) 10^3/uL Eos # (Auto) (0.0-0.7) 10^3/uL Baso # (Auto) (0.0-0.1) 10^3/uL Absolute Nucleated RBC x10^3/uL Nucleated RBC % /100WBC Sodium (135-145) mmol/L Potassium (3.5-5.0) mmol/L Chloride (101-111) mmol/L Carbon Dioxide (21-32) mmol/L Anion Gap (6-13) BUN (6-20) mg/dL Creatinine (0.4-1.0) mg/dL Estimated GFR (MDRD) (>89) Glucose (70-100) mg/dL Calcium (8.5-10.3) mg/dL Iron 33 (28-170) ug/dL TIBC 231 L (250-450) ug/dL % Saturation 14 L (20-50) % Transferrin 165 L (192-382) mg/dL Total Bilirubin (0.2-1.0) mg/dL AST (10-42) IU/L ALT (10-60) IU/L Alkaline Phosphatase (42-121) IU/L Ammonia (7-35) umol/L Total Protein (6.7-8.2) g/dL Albumin (3.2-5.5) g/dL Globulin (2.1-4.2) g/dL Albumin/Globulin Ratio (1.0-2.2) Vitamin B12 642 (180-914) pg/mL TSH (0.34-5.60) uIU/mL Urine Color Urine Clarity (CLEAR) Urine pH (5.0-7.5) PH Ur Specific [place] (1.002-1.030) Urine Protein (NEGATIVE) mg/dL Urine Glucose (UA) (NEGATIVE) mg/dL Urine Ketones (NEGATIVE) mg/dL Urine Occult Blood (NEGATIVE) Urine Nitrite (NEGATIVE) Urine Bilirubin (NEGATIVE) Urine Urobilinogen (NORMAL) E.U./dL Ur Leukocyte Esterase (NEGATIVE) ABX Reporting Has patient been on IV antibiotics over the past 48 hours?: No Assessment/Plan - Problem List (1) Altered mental status Impression: The patient can answer all orientation questions appropriately when asked today and complains about being in the chair. Plan: Continue to monitor. Qualifiers: Altered mental status type: transient alteration of awareness Qualified Code(s): R40.4 - Transient alteration of awareness (2) Aftercare following right hip joint replacement surgery Impression: The patient was undergoing rehab at [facility], but there was a mishap with giving morphine, that caused worsening confusion that led to a fall. She was transported back to the hospital and imaging confirmed no further injuries. She continues with PT while here, but can be combative at times. Her dressing remains intact. Plan: Continue therapy and encourage chair for meals, fall precautions. (3) Left wrist injury Impression: The patient admits to a previous left wrist injury. Plan: Obtain a left wrist x-ray and Dr. Madrigal consult if a fracture is seen. Qualifiers: Encounter type: subsequent encounter Qualified Code(s): S69.92XD - Unspecified injury of left wrist, hand and finger(s), subsequent encounter (4) Fall Impression: The patient had a reported fall at [facility] after receiving morphine. She first fell at her daughter's house on ~06/04/18 after being left unattended and tripped going down some stairs. She is still in her post op course of therapy and her right hip wound site continues to heal with minimal swelling. Plan: continue frequent nursing cares and fall precautions. Qualifiers: Encounter type: subsequent encounter Qualified Code(s): W19.XXXD - Unspecified fall, subsequent encounter (5) GERD (gastroesophageal reflux disease) Impression: The patient has had this and is prescribed Dexilant at home. She was given prot janay while inpatient as this is our formulary choice. Plan: Continue med and monitor for symptoms. (6) Hypertension Impression: The patient is prescribed Norvasc, lasix and potassium at home. Blood pressures today have been 122/44 and has chronically low diastolic B/Ps. Plan: Continue to monitor and give meds. Qualifiers: Hypertension type: essential hypertension Qualified Code(s): I10 - Essen tial (primary) hypertension (7) Hypothyroidism Impression: Labs showed a TSH of Qualifiers: Hypothyroidism type: acquired Qualified Code(s): E03.9 - Hypothyroidism, unspecified (8) Parkinson's disease Impression: The patient is prescribed Carvadopa levodopa, 2 tablets at a time. She previously was very strict about taking this, but with her worsening dementia, has refused at times. She has baseline tremors that become more apparent with activity or in times of agitation. Plan: Continue meds and watch for worsening tremors. (9) Dementia Impression: The patient cannot state her medical condition and cannot answer direct questions. She states that her daughters are her "sisters", and when questioned about this states, "same thing". She at times, believes that she is in [place]. Plan: Continue fall precautions and work on care home facility. (10) Anemia Impression: The patient has known iron deficiency anemia that began soon after her hip fracture. Prior to her injury she has a baseline H/H of 12.1/35.2, now down to 8.5/25.0. She is not thought to have any post-op bleeding, although she fell after arriving to SNF. She was on an iron supplement BID, which continues. Plan: Daily labs and monitor for dizziness. 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 For this condition, it is ideal to keep her heart rates controlled 60-80 and blood pressure controlled. Plan: Continue beta michael that was changed to Succinate for a longer lasting effect.
[2018-06-11] MEDS: METOPROLOL SUCCINATE 25 MG TABLET PO SCH ×2 (09:14→20:54)
[2018-06-11] MEDS: amLODIPine 5 MG TABLET PO SCH ×2 (09:14→20:54)
[2018-06-11] MEDS: ASPIRIN 325 MG TABLET PO SCH (09:16)
[2018-06-11] MEDS: ENOXAPARIN 40 MG/0.4 ML SYRINGE SUBQ SCH (09:16)
[2018-06-11] MEDS: FERROUS GLUCONATE 324 MG TABLET PO SCH ×2 (09:16→20:54)
[2018-06-11] MEDS: FAMOTIDINE 20 MG TABLET PO SCH (09:16)
[2018-06-11] MEDS: POLYETHYLENE GLYCOL 3350 17 GM PACKET PO SCH (09:17)
[2018-06-11] MEDS: SODIUM CHLORIDE FLUSH 0.9% 10 ML SYRINGE IVP SCH ×2 (09:17→17:11)
[2018-06-11] MEDS: ACETAMINOPHEN 325 MG TABLET PO PRN (13:15)
--- NOTE | 2018-06-11 13:48 | XRAY Report ---
Reason: pain, fall Procedure Date: 06/11/2018 Accession Number: [id number] / [id number] Procedure: XR - Wrist 2 View LT CPT Code: FULL RESULT: EXAM: LEFT WRIST RADIOGRAPHY EXAM DATE: 06/11/2018 12:43 PM. CLINICAL HISTORY: Pain, fall. COMPARISON: None. TECHNIQUE: 2 views. FINDINGS: Bones: Diffuse osteopenia. Mildly impacted and dorsally angulated fracture at the distal radius. Fracture margins are obscured with suggestion of some bridging callus formation dorsally. Possible intra-articular extension at the central aspect. 17 degrees dorsal angulation of the distal articular surface. Subacute or chronic ununited ulnar styloid fracture. Evaluation of the carpal bones mildly limited on 2 views. Joints: Mild to moderate degenerative changes. Alignment grossly anatomic. Soft Tissues: Mild soft tissue swelling at the dorsal and volar aspect of the wrist. Subtle vascular calcifications. IMPRESSION: 1. Mildly impacted and dorsally angulated distal radius fracture with possible intra-articular extension. Margins are obscured with some bridging callus formation, suggesting a component of this is likely subacute. 2. Subacute or chronic ulnar styloid fracture. 3. Mild soft tissue swelling. RADIA
[2018-06-11] MEDS: CHOLECALCIFEROL 1,000 UNIT TABLET PO SCH (15:06)
[2018-06-11] MEDS: QUEtiapine 25 MG TABLET PO SCH (20:54)
[2018-06-11] MEDS: CALCIUM CARBONATE CHEW 500 MG TABLET PO SCH (20:54)
[2018-06-12] MEDS: ACETAMINOPHEN 325 MG TABLET PO PRN ×2 (05:22→10:21)
[2018-06-12] MEDS: SODIUM CHLORIDE FLUSH 0.9% 10 ML SYRINGE IVP SCH ×3 (05:24→17:30)
[2018-06-12 06:10] LABS: BASOPHILS # (AUTO) 0.1 10^3/uL (0.0-0.1); BASOPHILS % (AUTO) 1.1 %; EOSINOPHILS # (AUTO) 0.5 10^3/uL (0.0-0.7); EOSINOPHILS % (AUTO) 8.1 %; HGB - HEMOGLOBIN 9.7 g/dL (12.0-16.0); LYMPHOCYTES # (AUTO) 1.2 10^3/uL (1.5-3.5); LYMPHOCYTES % (AUTO) 19.3 %; MEAN CORPUSCULAR HEMOGLOBIN 34.1 pg (27.0-31.0); MEAN CORPUSCULAR HGB CONC 34.3 g/dL (32.0-36.0); MEAN CORPUSCULAR VOLUME 99.6 fL (81.0-99.0); MEAN PLATELET VOLUME 6.9 fL (7.9-10.8); MONOCYTES # (AUTO) 0.6 10^3/uL (0.0-1.0); MONOCYTES % (AUTO) 10.2 %; NEUTROPHILS # (AUTO) 3.7 10^3/uL (1.5-6.6); NEUTROPHILS % (AUTO) 61.3 %; PLT - PLATELET COUNT 372 10^3/uL (130-450); RED BLOOD COUNT 2.84 10^6/uL (4.20-5.40); RED CELL DISTRIBUTION WIDTH 13.2 % (12.0-15.0); WHITE BLOOD COUNT 6.1 x10^3/uL (4.8-10.8)
[2018-06-12] MEDS: PANTOPRAZOLE 40 MG TABLET PO SCH ×2 (06:13→17:30)
[2018-06-12] MEDS: LEVOTHYROXINE 25 MCG TABLET PO SCH (06:13)
[2018-06-12 06:20] LABS: ALBUMIN 2.7 g/dL (3.2-5.5); ALBUMIN/GLOBULIN RATIO 0.8 (1.0-2.2); BILIRUBIN,TOTAL 0.7 mg/dL (0.2-1.0); CALCIUM 8.5 mg/dL (8.5-10.3); CREATININE 0.5 mg/dL (0.4-1.0); TOTAL PROTEIN 6.3 g/dL (6.7-8.2)
[2018-06-12] MEDS: ASPIRIN 325 MG TABLET PO SCH (08:53)
[2018-06-12] MEDS: FAMOTIDINE 20 MG TABLET PO SCH (08:54)
[2018-06-12] MEDS: amLODIPine 5 MG TABLET PO SCH ×3 (08:54→21:39)
[2018-06-12] MEDS: FERROUS GLUCONATE 324 MG TABLET PO SCH ×3 (08:54→21:39)
[2018-06-12] MEDS: CARBIDOPA/LEVODOPA 25 MG/100 MG TABLET PO SCH ×3 (08:54→17:30)
[2018-06-12] MEDS: METOPROLOL SUCCINATE 25 MG TABLET PO SCH ×3 (08:54→21:40)
[2018-06-12] MEDS: CALCIUM CARBONATE CHEW 500 MG TABLET PO SCH ×3 (08:54→21:39)
[2018-06-12] MEDS: ENOXAPARIN 40 MG/0.4 ML SYRINGE SUBQ SCH (08:54)
[2018-06-12] MEDS: CHOLECALCIFEROL 1,000 UNIT TABLET PO SCH (08:54)
[2018-06-12] MEDS: POLYETHYLENE GLYCOL 3350 17 GM PACKET PO SCH (08:55)
[2018-06-12] MEDS: CARBOXYMETHYLCELLULOSE OPHTH DROPS EACHEYE SCH ×2 (12:31→21:29)
--- NOTE | 2018-06-12 14:45 | CONSULTATION NOTE ---
DATE OF SERVICE: 06/12/2018 Physician: Kolby Madrigal MD REFERRING PROVIDER: TANI Sanchez of the hospitalist service CHIEF COMPLAINT: "My left wrist still hurts." HISTORY OF PRESENT ILLNESS: Patient is an 82-year-old, right-hand dominant, woman, somewha t demented, who is being evaluated today because of a left wrist problem. The patient recently was a dmitted to the hospital in early June with a broken right hip and subsequently had a left hemiar throplasty performed to the left hip. She has now been admitted to the hospital more recently janelle montes of confusion and agitation. While here, she has been complaining of some discomfort in the wrist a nd hand which has required her to wear a cock-up wrist brace for the last several months. Patient ana engel is somewhat a difficult historian because of her dementia. She, however is quite clear that she had an injury with a fall that probably occurred in late March or early March. She has been somewhat w earing this wrist brace intermittently ever since. She is quite comfortable on the current brace. A ble to do activities such as lifting a mug with the braced wrist. Although she can do it outside of her brace, she does complain of some discomfort in a diffuse distribution around her hand and wrist. She has not undergone any kind of therapy for her wrist. PHYSICAL EXAMINATION: Today out of her wrist brace, she has no swelling, ecchymoses, discoloration o r other abnormalities on clinical inspection with the exception of some mild wrist deformity as a res ult of her prior wrist fracture. She has no percussive tenderness over the distal radius or ulna. N o focal tenderness around the hand either. Has reasonable range of motion of her wrist and her hand today actively. She is able to grab and lift up a mug of water, both with and without her brace, alt nella she does complain of more pain in her hand out of brace activity. Neurovascular appears to be intact distally as well. DIAGNOSTIC DATA: Review of x-rays that were taken does show evidence of a shortened, healed distal r adius fracture. There appears to be some callus formation visible. Also, there appears to be what l jayceoks to be an old ulnar styloid fracture that did not unite. ASSESSMENT: Chronic left wrist pain - likely due to a recent distal radius fracture. Radiographical ly and clinically, it appears as though she has gone on to unite this fracture. There may be a chron ic ulnar styloid fibrous union present as well. She does have mainly subjective complaints at this p oint. PLAN: I have suggested while she is in house that she gets physical therapy and occupational therapy to teach her a home program for both wrist and hand range of motion and strengthening program. Also , it should be encouraged to start to wean herself as much as possible off of her wrist brace so that she does not develop any dependency or atrophy is a result of using this brace excessively. These h ave been ordered for her. Would expect that she continues to rehab her wrist and hand she will need the brace less and will be able to be more functional as well with less complaints. Please re-consul t the orthopedic service as needed. TD: 06/12/2018 13:18
--- NOTE | 2018-06-12 19:03 | PROVIDER PROGRESS NOTE ---
Subjective - Prog Note Date Prog Note Date: 06/12/18 Prog Note Time: 12:00 - Subjective Pt reports feeling: Improved Subjective: Melodie complains about "being tied down like before" and admits to calling the police over night. She has no other physical complaints. She denies shortness of breath, nausea, vomiting, diarrhea or a new cough. Current Medications - Current Medications Current Medications: Active Medications Acetaminophen (Tylenol) 650 mg PO Q4HR PRN PRN Reason: Pain or Fever > 38C (100.4F) Last Admin: 06/12/18 10:21 Dose: 650 mg Acetaminophen (Tylenol) 650 mg PO Q4HR PRN PRN Reason: Pain or Fever > 38C (100.4F) Amlodipine Besylate (Norvasc) 5 mg PO BID [facility] Last Admin: 06/12/18 08:54 Dose: 5 mg Aspirin (Arjun) 325 mg PO DAILY [facility] Last Admin: 06/12/18 08:53 Dose: 325 mg Calcium Carbonate/Glycine (Tums) 500 mg PO BID [facility] Last Admin: 06/12/18 08:54 Dose: 500 mg Carbidopa/Levodopa (Sinemet 25 Mg/100 Mg) 2 tab PO 0800,1200,1700 [facility] Last Admin: 06/12/18 17:30 Dose: 2 tab Carboxymethylcellulose (Refresh 1% Ophth Drops) 1 drops EACHEYE BID [facility] Last Admin: 06/12/18 12:31 Dose: 1 drops Cholecalciferol (Vitamin D3) 2,000 unit PO DAILY [facility] Last Admin: 06/12/18 08:54 Dose: 2,000 unit Enoxaparin Sodium (Lovenox) 40 mg SUBQ DAILY [facility] Last Admin: 06/12/18 08:54 Dose: 40 mg Famotidine (Pepcid) 20 mg PO DAILY [facility] Last Admin: 06/12/18 08:54 Dose: 20 mg Ferrous Gluconate (Fergon) 324 mg PO BID [facility] Last Admin: 06/12/18 08:54 Dose: 324 mg Ibuprofen (Motrin) 400 mg PO Q6H PRN PRN Reason: PAIN Ketorolac Tromethamine (Toradol Inj (15mg)) 15 mg IVP Q6HR PRN PRN Reason: PAIN Stop: 06/14/18 13:56 Last Admin: 06/10/18 14:26 Dose: 15 mg Levothyroxine Sodium (Synthroid) 50 mcg PO QDAC [facility] Last Admin: 06/12/18 06:13 Dose: 50 mcg Metoprolol Succinate (Toprol Xl) 25 mg PO BID [facility] Last Admin: 06/12/18 08:54 Dose: 25 mg Pantoprazole Sodium (Protonix) 40 mg PO BIDAC [facility] Last Admin: 06/12/18 17:30 Dose: 40 mg Polyethylene Glycol (Miralax) 17 gm PO DAILY [facility] Last Admin: 06/12/18 08:55 Dose: Not Given Quetiapine Fumarate (Seroquel) 25 mg PO QPM [facility] Last Admin: 06/11/18 20:54 Dose: 25 mg Sodium Chloride (Normal Saline Flush 0.9%) 10 ml IVP PRN PRN PRN Reason: NEEDED PER PROVIDER ORDERS Sodium Chloride (Normal Saline Flush 0.9%) 10 ml IVP 0100,0900,1700 [facility] Last Admin: 06/12/18 17:30 Dose: 10 ml Carbidopa/Levodopa 25/100 [Sinemet 25 mg/100 mg] 2 each PO 0800,1200,1700 06/01/18 Dexlansoprazole [Dexilant] 60 mg PO QDAC 06/01/18 Furosemide [Lasix] 40 mg PO DAILY 06/01/18 Lorazepam [Ativan] 0.5 mg PO BID PRN 06/01/18 amLODIPine [Norvasc] 5 mg PO BID 06/01/18 Metoprolol Tartrate 50 mg PO BID 06/02/18 Potassium Chloride 40 meq PO DAILY 06/02/18 Trazodone HCl 50 mg PO QPM PRN 06/02/18 Ferrous Gluconate 240 mg PO DAILY 06/09/18 Ibuprofen [Motrin] 400 mg PO Q6H PRN 06/09/18 Objective - Vital Signs/Intake & Output Reviewed Vital Signs: Yes Vital Signs: Vital Signs x48h Pulse Resp BP Pulse Ox 06/12/18 16:00 66 18 137/66 H 100 Intake & Output: Intake & Output 06/09/18 06/10/18 06/11/18 06/12/18 23:59 23:59 23:59 23:59 Intake Total 580 2870 2450 1060 Output Total 450 2100 1900 4575 Balance 130 084 663 -3355 - Objective General Appearance: positive: No acute distress, Alert Eyes Bilateral: positive: Normal inspection, PERRL ENT: positive: ENT inspection nml, Pharynx nml Neck: positive: Nml inspection, Thyroid nml, No JVD Respiratory: positive: Chest non-tender, No respiratory distress, Breath sounds nml Cardiovascular: positive: No gallop, Systolic murmur Peripheral Pulses: 1+ Radial (R), 1+ Radial (L) Abdomen: positive: Non-tender, Nml bowel sounds, Other (rounded, soft) Back: positive: Nml inspection Skin: positive: No rash, Warm, Dry Extremities: positive: Non-tender, Joint swelling (right hip mild swelling- normal post-op findings) Neurologic/Psychiatric: positive: CN's nml (2-12), Motor nml, Disoriented to time, Weakness, Sensory loss, Depressed mood/affect Reflexes: Bicep (R): 3+, Bicep (L): 3+ - Lab Results Fish Bones: 06/13/18 05:20 06/13/18 05:20 Other Labs: Lab Results x24hrs 06/12/18 06/12/18 Range/Units 05:40 05:40 WBC 6.1 (4.8-10.8) x10^3/uL RBC 2.84 L (4.20-5.40) 10^6/uL Hgb 9.7 L (12.0-16.0) g/dL Hct 28.3 L (37.0-47.0) % MCV 99.6 H (81.0-99.0) fL MCH 34.1 H (27.0-31.0) pg MCHC 34.3 (32.0-36.0) g/dL RDW 13.2 (12.0-15.0) % Plt Count 372 (130-450) 10^3/uL MPV 6.9 L (7.9-10.8) fL Neut # (Auto) 3.7 (1.5-6.6) 10^3/uL Lymph # (Auto) 1.2 L (1.5-3.5) 10^3/uL Bonner # (Auto) 0.6 (0.0-1.0) 10^3/uL Eos # (Auto) 0.5 (0.0-0.7) 10^3/uL Baso # (Auto) 0.1 (0.0-0.1) 10^3/uL Absolute Nucleated RBC 0.00 x10^3/uL Nucleated RBC % 0.0 /100WBC Sodium 140 (135-145) mmol/L Potassium 3.4 L (3.5-5.0) mmol/L Chloride 107 (101-111) mmol/L Carbon Dioxide 26 (21-32) mmol/L Anion Gap 7.0 (6-13) BUN 8 (6-20) mg/dL Creatinine 0.5 (0.4-1.0) mg/dL Estimated GFR (MDRD) 118 (>89) Glucose 125 H (70-100) mg/dL Calcium 8.5 (8.5-10.3) mg/dL Total Bilirubin 0.7 (0.2-1.0) mg/dL AST 19 (10-42) IU/L ALT 27 (10-60) IU/L Alkaline Phosphatase 84 (42-121) IU/L Total Protein 6.3 L (6.7-8.2) g/dL Albumin 2.7 L (3.2-5.5) g/dL Globulin 3.6 (2.1-4.2) g/dL Albumin/Globulin Ratio 0.8 L (1.0-2.2) ABX Reporting Has patient been on IV antibiotics over the past 48 hours?: No Assessment/Plan - Problem List (1) Altered mental status Impression: The patient can no longer answer all orientation questions appropriately and talked about calling "911" from her room. She states that the nurses were very rough and pinned her should down with their knee and gave her something in her IV that made her sleepy. Plan: Continue to monitor. Qualifiers: Altered mental status type: transient alteration of awareness Qualified Code(s): R40.4 - Transient alteration of awareness (2) Aftercare following right hip joint replacement surgery Impression: The patient was undergoing rehab at [facility], but there was a mishap with giving morphine, that caused worsening confusion that led to a fall. She was transported back to the hospital and imaging confirmed no further injuries. She continues with PT while here, but can be combative at times. Her dressing remains intact. Plan: Continue therapy and encourage chair for meals, fall precautions. (3) Left wrist injury Impression: The patient admits to a previous left wrist injury and continues to complain of this. OT services have been ordered for hand exercises as per Dr. Madrigal's request. Plan: Continue OT for strengthening and monitor for worsening. Attempt to wean off left wrist brace. Qualifiers: Encounter type: subsequent encounter Qualified Code(s): S69.92XD - Unspecified injury of left wrist, hand and finger(s), subsequent encounter (4) Fall Impression: The patient had a reported fall at SNF after receiving morphine. She first fell at her daughter's house on ~06/04/18 after being left unattended and tripped going down some stairs. She is still in her post op course of therapy and her right hip wound site continues to heal with minimal swelling. Plan: continue frequent nursing cares and fall precautions. Qualifiers: Encounter type: subsequent encounter Qualified Code(s): W19.XXXD - Unspecified fall, subsequent encounter (5) GERD (gastroesophageal reflux disease) Impression: The patient has had this and is prescribed Dexilant at home. She was given protonix while inpatient as this is our formulary choice. Plan: Continue med and monitor for symptoms. (6) Hypertension Impression: The patient is prescribed Norvasc, lasix and potassium at home. Blood pressures have been stable and has chronically low diastolic B/Ps. Plan: Continue to monitor and give meds. Qualifiers: Hypertension type: essential hypertension Qualified Code(s): I10 - Essential (primary) hypertension (7) Hypothyroidism Impression: Labs showed a TSH of 15.60 showing poor control. We have adjusted her dose. Plan: continue treatment with daily Synthroid. Qualifiers: Hypothyroidism type: acquired Qualified Code(s): E03.9 - Hypothyroidism, unspecified (8) Parkinson's disease Impression: The patient is prescribed Carvadopa levodopa, 2 tablets at a time. She previously was very strict about taking this, but with her worsening dementia, has refused at times. She has baseline tremors that become more apparent with activity or in times of agitation. Plan: Continue meds and watch for worsening tremors. (9) Dementia Impression: The patient cannot state her medical condition and cannot answer direct questions. She states that her daughters are her "sisters", and when questioned about this states, "same thing". She at times, believes that she is in [place]. Plan: Continue fall precautions and work on penitentiary facility. (10) Anemia Impression: The patient has known iron deficiency anemia that began soon after her hip fracture. Prior to her injury she has a baseline H/H of 12.1/35.2, now improved at 9.7/28.2. She is not thought to have any post-op bleeding, although she fell after arriving to SNF. She was on an iron supplement BID, which continues. Plan: Daily labs, continue iron supplement, and monitor for dizziness. 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 For this condition, it is ideal to keep her heart rates controlled 60-80 and blood pressure controlled. Plan: Continue beta michael that was changed to Succinate for a longer lasting effect.
[2018-06-12] MEDS ORDERED: HALOPERIDOL 5 MG/ML VIAL IVP SCH (21:20)
[2018-06-12] MEDS: QUEtiapine 25 MG TABLET PO SCH ×2 (21:28→21:40)
[2018-06-12] MEDS ORDERED: LORazepam 2 MG/ML VIAL IVP SCH (22:34)
[2018-06-13] MEDS: SODIUM CHLORIDE FLUSH 0.9% 10 ML SYRINGE IVP SCH ×4 (05:22→23:59)
[2018-06-13 06:05] LABS: BASOPHILS # (AUTO) 0.1 10^3/uL (0.0-0.1); EOSINOPHILS # (AUTO) 0.5 10^3/uL (0.0-0.7); EOSINOPHILS % (AUTO) 5.3 %; LYMPHOCYTES # (AUTO) 0.8 10^3/uL (1.5-3.5); LYMPHOCYTES % (AUTO) 9.5 %; MEAN CORPUSCULAR HEMOGLOBIN 34.5 pg (27.0-31.0); MEAN CORPUSCULAR VOLUME 98.7 fL (81.0-99.0); MEAN PLATELET VOLUME 6.8 fL (7.9-10.8); MONOCYTES # (AUTO) 0.8 10^3/uL (0.0-1.0); MONOCYTES % (AUTO) 8.7 %; NEUTROPHILS # (AUTO) 6.7 10^3/uL (1.5-6.6); NEUTROPHILS % (AUTO) 75.5 %; PLT - PLATELET COUNT 420 10^3/uL (130-450); RED BLOOD COUNT 2.89 10^6/uL (4.20-5.40); RED CELL DISTRIBUTION WIDTH 13.2 % (12.0-15.0); WHITE BLOOD COUNT 8.8 x10^3/uL (4.8-10.8)
[2018-06-13 06:18] LABS: ALBUMIN 2.8 g/dL (3.2-5.5); ALBUMIN/GLOBULIN RATIO 0.8 (1.0-2.2); BILIRUBIN,TOTAL 0.6 mg/dL (0.2-1.0); CALCIUM 8.7 mg/dL (8.5-10.3); CREATININE 0.6 mg/dL (0.4-1.0); TOTAL PROTEIN 6.1 g/dL (6.7-8.2)
[2018-06-13] MEDS: LEVOTHYROXINE 25 MCG TABLET PO SCH (06:53)
[2018-06-13] MEDS: PANTOPRAZOLE 40 MG TABLET PO SCH ×2 (06:54→17:54)
[2018-06-13] MEDS: ASPIRIN 325 MG TABLET PO SCH (09:03)
[2018-06-13] MEDS: CALCIUM CARBONATE CHEW 500 MG TABLET PO SCH ×2 (09:03→19:58)
[2018-06-13] MEDS: amLODIPine 5 MG TABLET PO SCH ×2 (09:03→19:58)
[2018-06-13] MEDS: CARBIDOPA/LEVODOPA 25 MG/100 MG TABLET PO SCH ×3 (09:03→17:54)
[2018-06-13] MEDS: METOPROLOL SUCCINATE 25 MG TABLET PO SCH (09:03)
[2018-06-13] MEDS: POLYETHYLENE GLYCOL 3350 17 GM PACKET PO SCH (09:04)
[2018-06-13] MEDS: CHOLECALCIFEROL 1,000 UNIT TABLET PO SCH (09:04)
[2018-06-13] MEDS: FAMOTIDINE 20 MG TABLET PO SCH (09:04)
[2018-06-13] MEDS: ENOXAPARIN 40 MG/0.4 ML SYRINGE SUBQ SCH (09:04)
[2018-06-13] MEDS: FERROUS GLUCONATE 324 MG TABLET PO SCH ×2 (09:04→19:58)
[2018-06-13] MEDS: CARBOXYMETHYLCELLULOSE OPHTH DROPS EACHEYE SCH ×2 (09:09→19:58)
[2018-06-13] MEDS: KETOROLAC 15 MG/ML VIAL IVP PRN (10:53)
[2018-06-13] MEDS: ACETAMINOPHEN 325 MG TABLET PO PRN ×2 (15:09→23:59)
[2018-06-13] MEDS: QUEtiapine 25 MG TABLET PO SCH ×2 (19:58→23:59)
[2018-06-14] MEDS: PANTOPRAZOLE 40 MG TABLET PO SCH (06:11)
[2018-06-14] MEDS: LEVOTHYROXINE 25 MCG TABLET PO SCH (06:11)
[2018-06-14] MEDS: CARBIDOPA/LEVODOPA 25 MG/100 MG TABLET PO SCH ×2 (08:54→13:16)
[2018-06-14] MEDS: amLODIPine 5 MG TABLET PO SCH (08:54)
[2018-06-14] MEDS: ASPIRIN 325 MG TABLET PO SCH (08:54)
[2018-06-14] MEDS: FERROUS GLUCONATE 324 MG TABLET PO SCH (08:54)
[2018-06-14] MEDS: CHOLECALCIFEROL 1,000 UNIT TABLET PO SCH (08:54)
[2018-06-14] MEDS: CALCIUM CARBONATE CHEW 500 MG TABLET PO SCH (08:54)
[2018-06-14] MEDS: METOPROLOL SUCCINATE 25 MG TABLET PO SCH (08:55)
[2018-06-14] MEDS: ENOXAPARIN 40 MG/0.4 ML SYRINGE SUBQ SCH (08:56)
[2018-06-14] MEDS: SODIUM CHLORIDE FLUSH 0.9% 10 ML SYRINGE IVP SCH (08:56)
[2018-06-14] MEDS: POLYETHYLENE GLYCOL 3350 17 GM PACKET PO SCH (08:56)
[2018-06-14] MEDS: CARBOXYMETHYLCELLULOSE OPHTH DROPS EACHEYE SCH (08:56)
[2018-06-14] MEDS: FAMOTIDINE 20 MG TABLET PO SCH (09:03)
--- NOTE | 2018-06-14 13:26 | Discharge Plan ---
"[facility]charge Plan [facility] - Discharge Plan And Transition Orders Disposition: 03 SNF DC/Xfer Condition: Good Allergies and Adverse Reactions: Allergies Allergy/AdvReac Type Severity Reaction Status Date / Time hydromorphone [From Dilaudid] Allergy Hallucinati Verified 06/08/18 20:59 ons meperidine [From Demerol] AdvReac Hallucinati Verified 06/08/18 20:59 ons oxycodone AdvReac Hallucinati Verified 06/08/18 20:59 ons - SNF / [facility] Transition Orders Admit to (Facility): [facility] care Under the care of (Name): Dr. Cullen Vivas Discharge Diagnosis: Altered mental status (R41.82) Aftercare following right hip joint replacement surgery (Z47.1) Left wrist injury (S69.92XA) Fall (W19.XXXA) GERD (gastroesophageal reflux disease) (K21.9) HTN (hypertension) (I10) Hypothyroidism (E03.9) Parkinsons (G20) Dementia (F03.90) Anemia (D64.9) History of IHSS (Z86.79) Medicare Certification Statement: I certify that Post Hospital assisted care is medically necessary on a continuing basis for any of the conditions for which she/he is receiving care during hospitalization. Notify PCP of admission and forward orders to primary provider for signature. Weight on admission and: Weekly Call PCP immediately if weight increases by: 3.629 kg (diuretic therapy) Other Notification Orders: Call PCP immediately if patient develops dyspnea, chest pain/tightness or edema. Additional Bowel Program Orders: If no BM after 2 days, nurse may give M.O.M. 30ml PO PRN and/or ducolax Supp 1 MD and/or ASHOK 250mg P.O., and/or senna 1-2 tabs PO. On day 3 nurse may give repeat above order until residents constipation is resolved. Annual Influenza Vaccine (between Jun 01 and December 29): Yes Two-step PPD per [facility] [id number] or approved exception documents: Yes Treatments & Other Orders: Ongoing physical therapy in hopes to return to independent living with family or at assisted living. Oxygen Orders: 1-2L via nasal cannula to keep oxygen saturation greater than 92%, PRN Lab Tests or X-ray Orders: Weekly or as per provider; BMP, CBC. Medication Orders: PLEASE REFER TO THE DISCHARGE MEDICATION LIST. Insulin Orders?: No - Diet Type: Geriatric Texture: Regular Liquids: Thin May have monthly special meal: Yes - Therapies | Activity Therapy: Evaluation | Treat if indicated: PT, OT Rehabilitation Potential: Maximize functional status, Maintain present ADL Functional Activity: Activity as Tolerated Extremities: NWBLLE Assistance Devices: Walker"
--- NOTE | 2018-06-14 13:55 | DISCHARGE SUMMARY ---
Discharge Summary Admit Date: 06/09/18 Discharge Date: 06/14/18 Discharging Provider: LIO Perea Primary Care Provider: Chetna Pacheco Code Status: Attempt Resuscitation Condition at Discharge: Good Discharge Disposition: 03 SNF DC/Xfer [facility]charge [facility]Dr[facility] Cullen Vivas - DIAGNOSES Admission Diagnoses: Disorientation, unspecified (R41.0) Aftercare following joint replacement surgery (Z47.1) Unspecified dementia without behavioral disturbance (F03.90) Essential (primary) hypertension (I10) Parkinson's disease (G20) Anemia, unspecified (D64.9) Discharge Diagnoses with Status of Each Condition: Altered mental status (R41.82) chronic, stable. Dementia (F03.90) chronic, stable. Aftercare following right hip joint replacement surgery (Z47.1) chronic, stable. Fall (W19.XXXA) chronic, stable. Left wrist injury (S69.92XA) chronic, stable. HTN (hypertension) (I10) chronic, stable. Parkinsons (G20) chronic, stable. Anemia (D64.9) chronic, stable. Hypothyroidism (E03.9) chronic, stable. GERD (gastroesophageal reflux disease) (K21.9) chronic, stable. History of IHSS (Z86.79)chronic, stable. - HPI History of Present Illness: Melodie Cooney is a 82-year old female with a past medical history of right hip fracture on 06/01/18, now status post right hip repair, frequent falls, hypertension, hypothyroidism, dementia, Parkinson's disease, GERD, atrial fibrillation, thymus cancer-status post thymus removal, and baseline tremors. She moved to [facility] from [place] recently to be with her daughter since she was having more frequent falls due to Parkinson's. The patient was discharged to [facility] on Tylenol for pain. Once arriving to the SNF, staff was concerned that she did not have adequate pain medications, so they sent her to our ED by the next morning. She was seen and examined in the ED on 06/08/18, given one dose of Morphine sulfate and also given a prescription for additional doses as per the [facility] request. The patient arrived to our ED via ambulance indicated for a fall and increased confusion, from [facility] for which she was undergoing physical therapy rehabilitation after hip surgery after a mechanical fall at her daughters trailer home on 06/01/18. This surgery was initially delayed due to LFTs being significantly elevated (etiology was never determined), which then normalized and she had surgery. Her post op course was complicated with increased confusion, combativeness, agitations, pulling out IV lines, and requiring restraints. She moved to [facility] from [place] recently to be with her daughter since she was having more frequent falls due to Parkinson's. Once back in the ED, imaging confirmed no acute fractures, including head imaging showing no intracranial bleeding or abnormalities, so she was admitted to observation for delirium and opiate overdose. - HOSPITAL COURSE Hospital Course: (1) Altered mental status The patient was unable to answer orientation questions appropriately and talked about calling "911" from her room. She states that the nurses were very rough and pinned her should down with their knee and gave her something in her IV that made her sleepy. She was started on seroquel to be given at bedtime, which made a great improvement in her overall mental status, although prior to her discharge, she could still not accurately identify her situation, and became easily frustrated. (2) Aftercare following right hip joint replacement surgery The patient was undergoing rehab at [facility], but there was a mishap with giving morphine, that caused worsening confusion that led to a fall. She was transported back to the hospital and imaging confirmed no further injuries. She continued with PT while here, but can be combative at times. Her dressing remained intact. It was determined that she needed further rehab, and that her daughter could not hire 24 care givers. She has been accepted to [facility] off the [address] for continued care. (3) Left wrist injury The patient admits to a previous left wrist injury and continues to complain of this. OT services were ordered for hand exercises as per Dr. Madrigal's request. Attempts were started to wean off left wrist brace. (4) Fall The patient had a reported fall at [facility] after receiving morphine. She first fell at her daughter's house on ~06/04/18 after being left unattended and tripped going down some stairs. She is still in her post op course of therapy and her right hip wound site continues to heal with minimal swelling. The patient was given frequent nursing cares and remained on fall precautions. There were no additional falls after arriving to the hospital until the time of transport to the SNF. (5) GERD (gastroesophageal reflux disease) The patient has had this condition and is prescribed Dexilant at home. She was given protonix while inpatient as this is our formulary choice and discharged back on her usual medication to be given at the SNF. (6) Hypertension The patient is prescribed Norvasc, lasix and potassium at home. Blood pressures have been stable and has chronically low diastolic B/Ps, which is a likely consequence of her IHSS. During this hospital stay, she was transitioned to a long acting metoprolol, and her home medications were also resumed. (7) Hypothyroidism Labs showed a TSH of 15.60 showing poor control. We have adjusted her dose and she should have this re-checked ~4-6 weeks. (8) Parkinson's disease The patient is prescribed Carvadopa levodopa, 2 tablets at a time. She previously was very strict about taking this, but with her worsening dementia, has refused at times. She has baseline tremors that become more apparent with a ctivity or in times of agitation. There were no changes made to her usual medications for this condition. (9) Dementia The patient cannot state her medical condition and cannot answer direct questions. She states that her daughters are her "sisters", and when questioned about this states, "same thing". She at times, believes that she is in [place]. The patient was non-decisional during her stay and could not recite her medical condition, or the circumstances that lead to her hospital stay. This condition was treated with scheduled nightly seroquel and as needed lorazepam to be used sparingly. (10) Anemia The patient has known iron deficiency anemia that began soon after her hip fracture. Prior to her injury she has a baseline H/H of 12.1/35.2, now improved at 9.7/28.2. She is not thought to have any post-op bleeding, although she fell after arriving to SNF. She was on an iron supplement BID, which continues. 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 For this condition, it is ideal to keep her heart rates controlled 60-80 and blood pressure controlled. The patient was continued on a beta michael that was changed to Succinate for a longer lasting effect. The patient was medically stable and was transported off the [address] via wheel chair van for further rehab. Her daughter was updated and consented. - ALLERGIES Allergies/Adverse Reactions: Allergies Allergy/AdvReac Type Severity Reaction Status Date / Time hydromorphone [From Dilaudid] Allergy Hallucinati Verified 06/08/18 20:59 ons meperidine [From Demerol] AdvReac Hallucinati Verified 06/08/18 20:59 ons oxycodone AdvReac Hallucinati Verified 06/08/18 20:59 ons - MEDICATIONS Home Medications: Ambulatory Orders Medication Instructions Recorded Confirmed Carbidopa/Levodopa 25/100 [Sinemet 2 each PO 0800,1200,1700 06/01/18 06/08/18 25 mg/100 mg] Dexlansoprazole [Dexilant] 60 mg PO QDAC 06/01/18 06/08/18 Furosemide [Lasix] 40 mg PO DAILY 06/01/18 06/08/18 Lorazepam [Ativan] 0.5 mg PO BID PRN 06/01/18 06/09/18 amLODIPine [Norvasc] 5 mg PO BID 06/01/18 06/08/18 Potassium Chloride 40 meq PO DAILY 06/02/18 06/08/18 Acetaminophen [Tylenol] 650 mg PO Q4HR PRN #60 tablet 06/07/18 06/08/18 Aspirin 325 mg PO BID #20 tablet 06/07/18 06/08/18 Levothyroxine [Synthroid] 50 mcg PO QDAC #10 tablet 06/07/18 06/08/18 Ferrous Gluconate 240 mg PO DAILY 06/09/18 06/09/18 Ibuprofen [Motrin] 400 mg PO Q6H PRN 06/09/18 06/09/18 Metoprolol Succinate [Toprol Xl] 50 mg PO DAILY #30 tab.er.24h 06/14/18 Quetiapine Fumarate [Seroquel] 25 mg PO DAILY PM #15 tablet 06/14/18 - PHYSICAL EXAM AT DISCHARGE General Appearance: positive: Alert, Moderate distress, Anxious Eyes Bilateral: positive: Normal inspection ENT: positive: ENT inspection nml, Pharynx nml, No signs of dehydration Neck: positive: Nml inspection, Thyroid nml, No JVD, Trachea midline Respiratory: positive: Chest non-tender, No respiratory distress, Breath sounds nml Cardiovascular: positive: Regular rate & rhythm, No gallop Peripheral Pulses: positive: 2+ Abdomen: positive: Non-tender, Nml bowel sounds Back: positive: Nml inspection Skin: positive: No rash, Warm, Dry Extremities: positive: Non-tender, Full ROM, Nml appearance, Pedal edema, Joint swelling (right hip) Neurologic/Psychiatric: positive: Oriented x3, CN's nml (2-12), Motor nml, Weakn ess, Depressed mood/affect Reflexes: Bicep (R): 3+, Bicep (L): 3+ - LABS Result Diagrams: 06/13/18 05:20 06/13/18 05:20 - FOLLOW UP Follow Up: Admit to (Facility): [facility] Under the care of (Name): Dr. Cullen Vivas - TIME SPENT Time Spent in Discharge (Minutes): 60
[2018-06-14 15:31] VITALS: BP 119/54
[2018-06-14] MEDS: ACETAMINOPHEN 325 MG TABLET PO PRN (15:41)
== END 2018-06-14 15:45 | DRG 948 ==
LOC: EDUNIT# → ED 20:44 → MS2 23:28 → OBSVTOIN 06-10 12:59
PROVIDERS: ADMIT Internal Medicine; ATTEND Nurse Practitioner
DX: R41.0 Disorientation, unspecified (principal); T50.905A Adverse effect of unspecified drugs, medicaments and biological substances, initial encounter; I42.1 Obstructive hypertrophic cardiomyopathy; I48.91 Unspecified atrial fibrillation; S52.612K Displaced fracture of left ulna styloid process, subsequent encounter for closed fracture with nonunion; T40.2X5A Adverse effect of other opioids, initial encounter; Y92.129 Unspecified place in nursing home as the place of occurrence of the external cause; I10 Essential (primary) hypertension; G20 Parkinson's disease; F02.80 Dementia in other diseases classified elsewhere, unspecified severity, without behavioral disturbance, psychotic disturbance, mood disturbance, and anxiety; D50.9 Iron deficiency anemia, unspecified; E03.9 Hypothyroidism, unspecified; K21.9 Gastro-esophageal reflux disease without esophagitis; Z96.641 Presence of right artificial hip joint; G89.18 Other acute postprocedural pain; S72.001D Fracture of unspecified part of neck of right femur, subsequent encounter for closed fracture with routine healing; M25.551 Pain in right hip; W19.XXXD Unspecified fall, subsequent encounter; R29.6 Repeated falls; Z47.1 Aftercare following joint replacement surgery; Z79.82 Long term (current) use of aspirin
CPT/HCPCS: 36415; 70450; 71045; 71046; 80053; 80306; 80307; 80329; 81001; 81003; 82140; 82270; 82553; 82607; 82728; 83540; 83615; 83690; 83735; 84443; 84466; 84484; 85025; 85044; 87040; 87086; 93005; 96360; 96361; 96365; 96372; 96374; 96375; 99283; 99284; 99285